=== PATIENT | male | born 1955 | race Caucasian/White ===

== ENCOUNTER 2022-04-22 01:31 | Inpatient (IN) | payer MEDICARE, MEDICAID, SELFPAY ==
[2022-04-22] VITALS (31 sets, daily range): BP systolic 136–178; BP diastolic 79–97; PULSE 98–110; RESP 26–42; TEMP 35.8–36.9; O2SAT 97–100; BMI 18.5
--- NOTE | ~2022-04-22 | CT_ITS ---
EXAMINATION: CT brain wo con DATE: 04/22/2022 02:23 INDICATION: Transient alteration of awareness TECHNIQUE: Computed tomography (CT) of the head was performed without intravenous contrast. The dose- length product was 681.00 mGy-cm. Automated exposure control and iterative reconstruction technique w ere employed. COMPARISON: None FINDINGS: Mild generalized atrophy. There is a chronic right temporal lobe infarction with encephalom alacia. There are scattered mild periventricular and subcortical white matter changes, most likely re lated to small vessel ischemic disease (microangiopathy). No ventriculomegaly or midline shift. There is a chronic left temporal lobe infarction as well. There is intracranial atherosclerosis. Paranasal sinuses are pneumatized. Mastoids are pneumatized. There are surgical changes involving the left orb ital floor consistent with previous blowout fracture repair. IMPRESSION: 1. No acute intracranial abnormality. 2: Chronic bilateral temporal lobe infarctions. 3: Chronic age-related findings. Reviewed, dictated and finalized at location A.
--- NOTE | ~2022-04-22 | XR_ITS ---
EXAMINATION: XR abdomen NG/feed tube insert DATE: 04/23/2022 13:41 INDICATION: Nasogastric tube placement. TECHNIQUE: An upright view of the abdomen was obtained. COMPARISON: None. FINDINGS: The lower abdomen is excluded. The nasogastric tube tip is in the stomach. IMPRESSION: 1. Nasogastric tube tip in the stomach. Reviewed, dictated and finalized at location A.
--- NOTE | ~2022-04-22 | XR_ITS ---
XR abdomen NG/feed tube insert INDICATION: Evaluate NG tube position. TECHNIQUE: Limited KUB perform for evaluating NG tube . COMPARISON: 04/23/2022 FINDINGS: NG tube tip in the stomach. Visualized bowel gas pattern is unremarkable. IMPRESSION: 1: NG tube tip in the stomach. Reviewed, dictated and finalized at location A.
--- NOTE | ~2022-04-22 | XR_ITS ---
EXAMINATION: XR barium swallow modified DATE: 04/26/2022 14:14 INDICATION: Dysphagia TECHNIQUE: Modified barium esophagram was performed by myself to administered fluoroscopy, in conjun ction with speech pathologist who administered barium in varying consistencies as per speech patholog ist documentation. This was recorded on tape. A single fluoroscopic spot image was recorded. The DAP for this procedure was 1.35 Gycm2. Fluoroscopy exposure time was 2.0 minutes. FINDINGS: Oral stage: Increased tongue pumping and prolonged mastication. Pharyngeal phase: Reduced laryngeal elevation, reduced tongue base retraction, reduced laryngeal addu ction, vallecular and piriform sinus residue. Laryngeal penetration: Present. Aspiration: Present. Laryngeal sensitivity: Absent. IMPRESSION: Abnormal modified barium swallow. Please refer to speech pathologist findings and specifi c feeding recommendations. Reviewed, dictated and finalized at location A. IMPRESSION: Abnormal modified barium swallow. Please refer to speech pathologis t findings and specific feeding recommendations.
--- NOTE | ~2022-04-22 | XR_ITS ---
EXAM: XR abdomen/kub 1V DATE: 04/26/2022 12:56 HISTORY: abd pain . COMPARISON: 04/25/2022. FINDINGS: Clear lung bases. Paucity of small bowel gas. No large bowel dilation. No organomegaly. No abnormal abdominal calcification. Regional bones and soft tissues normal for age. IMPRESSION: Indeterminate small bowel gas pattern (may be fluid-filled). Reviewed, dictated and finalized at location K.
--- NOTE | ~2022-04-22 | XR_ITS ---
EXAMINATION: XR chest 2V DATE: 05/02/2022 09:30 INDICATION: Leukocytosis. TECHNIQUE: Frontal and lateral views of the chest were obtained. COMPARISON: Chest single view 04/22/2022 FINDINGS: The chest demonstrates clear lungs without pneumonia, pleural effusion, or pneumothorax. Th e heart size is normal. IMPRESSION: 1. No acute cardiopulmonary disease. Reviewed, dictated and finalized at location A.
--- NOTE | ~2022-04-22 | XR_ITS ---
EXAMINATION: XR chest 1V portable 04/22/2022 02:05 INDICATION: Transient alteration of awareness. Dyspnea. PROCEDURE: AP portable chest COMPARISON: No prior studies for comparison. FINDINGS: The lungs are clear. The cardiomediastinal silhouette is within normal limits. There are no pleural effusions. There is no pneumothorax suspected. There are degenerative changes of the grey ulders. IMPRESSION: 1: NO ACUTE CARDIOPULMONARY DISEASE. Reviewed, dictated and finalized at location A.
--- NOTE | ~2022-04-22 | XR_ITS ---
EXAMINATION: XR barium swallow modified DATE: 04/29/2022 15:12 INDICATION: Dysphagia. TECHNIQUE: The patient was given barium-containing material of multiple consistencies to swallow by t shea speech pathologist while I performed fluoroscopy. Dose-area product was 2.2 Gy-cm2. 7.8 minutes fluoroscopy time FINDINGS: Oral Stage: Reduced lingual movement. Pharyngeal Phase: Reduced laryngeal elevation and laryngeal abduction Reduced tongue base retraction and pharyngeal squeeze Vallecular residue, mild Mild pharyngeal wall residue Laryngeal penetration, occasional aspiration Cervical/Esophageal Stage: Within functional limits IMPRESSION: Modified esophagram findings as above. Please refer to the speech therapy report for [facility]. Reviewed, dictated and finalized at Location A. Reviewed, dictated and finalized at location A. IMPRESSION: Modified esophagram findings as above. Please refer to the speech t herapy report for specific recommendations.
--- NOTE | ~2022-04-22 | XR_ITS ---
EXAMINATION: XR abdomen NG/feed tube insert DATE: 04/23/2022 15:41 INDICATION: Nasogastric tube placement TECHNIQUE: A supine view of the abdomen and lower chest was obtained for evaluation of feeding tube placement. COMPARISON: 04/23/2022 at 1:39 PM FINDINGS: Nasogastric tube tip in proximal side port in the body of the stomach. No dilated loops of gas-filled bowel in the visualized abdomen. Lung bases are clear. Heart size is normal. IMPRESSION: 1. Nasogastric tube tip in the stomach. Reviewed, dictated and finalized at location B.
--- NOTE | ~2022-04-22 | XR_ITS ---
MODIFIED ESOPHAGRAM HISTORY: Altered mental status TECHNIQUE: Modified barium esophagram was performed by speech pathologist under radiologist fluorosco pic guidance. This was recorded on tape. The exam was reviewed on 04/25/2022 10:06 CDT. The DAP for this procedure was 1 Gycm2. Fluoroscopy time is 1.3 minutes. FINDINGS: Lateral projection of the cervical spine demonstrates normal alignment. There is reduced laryngeal elevation, reduced laryngeal adduction and reduced tongue base retraction. There is larynge al penetration with aspiration. No cough reflex.. IMPRESSION: 1: Laryngeal penetration with aspiration without cough reflex. 2: Please refer to speech pathologist report for additional detail. Reviewed, dictated and finalized at location A.
--- NOTE | 2022-04-22 01:32 | ECG_ITS ---
Measurements Intervals [place] Rate: 108 P: 66 NV: 134 QRS: -28 QRSD: 89 T: 33 QT: 335 QTc: 450 Interpretive Statements SINUS TACHYCARDIA POSSIBLE LEFT ATRIAL ENLARGEMENT DELAYED PRECORDIAL R/S TRANSITION BORDERLINE T WAVE ABNORMALITY- INFERIOR LEADS BASELINE ARTIFACT- I, II, III, AVR, AVL, AVF, V1-V2, V6 BORDERLINE ECG Electronically Signed On 04-22-2022 6:37:52 CDT by Nelson Blandon D.O.
[2022-04-22 01:51] LABS: Alveolar/Arterial O2 Gradient 29.4 mmHg; Base Excess ABG -15.1 mEq/l (+/-2.0); Fractional Inspired Oxygen 21 %; Oxygen Content ABG 19.8 %vol (16.0-22.0); Oxygen Saturation ABG 96.1 % (95.0-100.0); Oxyhemoglobin 94.1 % THb (90.0-100.0); PO2 ABG 92.4 mmHg (80.0-100.0); Total Hemoglobin 14.9 g/dL (12.0-18.0)
[2022-04-22] MEDS: SODIUM CHLORIDE 0.9% IV 2,000 ML 999 ML IV CONT (01:52)
[2022-04-22 01:53] LABS: Device ROOM AIR; Modified Allen's Test Pass; PCO2 ABG 23.3 mmHg (35.0-45.0); Site Drawn LEFT RADIAL; pH ABG 7.252 (7.350-7.450)
[2022-04-22 01:57] LABS: Basophils Absolute Auto 0.1 K/mm3 (0.0-0.1); Basophils Percent Auto 0.4 % (0.2-1.2); Hematocrit 53.5 % (42.0-52.0); Hemoglobin 15.4 g/dL (14.0-18.0); Immature Granulocyte Absolute 0.27 K/mm3 (0.00-0.031); Immature Granulocyte Percent A 1.3 % (0-0.5); Lymphocytes Absolute Auto 1.68 K/mm3 (0.9-3.2); Lymphocytes Percent Auto 8.1 % (18.3-44.2); Mean Corpuscular HGB Conc 28.8 g/dl (32-36); Mean Corpuscular Hemoglobin 25.5 pg (26-34); Mean Corpuscular Volume 88.7 fl (80-100); Mean Platelet Volume 10.7 fl (7.4-10.4); Monocytes Absolute Auto 2.5 K/mm3 (0.1-0.6); Monocytes Percent Auto 11.9 % (2.6-8.5); Neutrophils Absolute Auto 16.2 K/mm3 (1.3-6.7); Neutrophils Percent Auto 78.3 % (45.5-73.1); Nucleated Red Blood Cells Perc 0.1 % (0.0-0.2); Platelet Count Result 622 k/mm3 (150-375); Red Blood Count 6.03 M/mm3 (4.6-6.20); Red Cell Distribution Width 16.9 % (11.5-14.5); White Blood Count 20.7 K/mm3 (4.5-10.0)
[2022-04-22 02:02] LABS: Glucose Point of Care > 500 mg/dl (65-105)
[2022-04-22 02:05] LABS: Ammonia < 9 umol/L (9-30)
[2022-04-22 02:09] LABS: INR 1.3; Partial Thromboplastin Time 25.8 SECONDS (22.3-36.8); Prothrombin Time 16.1 Seconds (11.1-14.7)
[2022-04-22] MEDS: SODIUM BICARBONATE 8.4% 50 MEQ/50 ML SYRINGE IV PUSH (02:09)
[2022-04-22 02:11] LABS: Alanine Aminotransferase 54 U/L (6-50); Albumin Level 4.9 g/dL (3.5-5.1); Alkaline Phosphatase 132 U/L (38-126); Anion Gap 33 mmol/L (8-16); Aspartate Amino Transferase 32 U/L (17-59); Bilirubin,Total 0.6 mg/dL (0.2-1.3); Blood Urea Nitrogen > 120 mg/dL (9-20); Calcium 9.3 mg/dL (8.4-10.2); Carbon Dioxide 12 mmol/L (22-30); Chloride 106 mmol/L (98-107); Estimated CRCL calculation 12 ml/min; Estimated Glomerular Filt Rate 10; Potassium 3.4 mmol/L (3.4-5.0); Sodium 151 mmol/L (137-145)
[2022-04-22 02:16] LABS: Glucose 1249 mg/dL (65-110)
[2022-04-22] MEDS: SODIUM CHLORIDE 0.9% IV 1,000 ML 999 ML IV CONT ×2 (02:24→02:53)
--- NOTE | 2022-04-22 02:25 | PC.NURSE ---
this rn clarified with erp. Pt is to get a total of 4,000ml ( 1 liter via ems, and 3 liters in the ed).
[2022-04-22 02:34] LABS: Add Urine Microscopic? YES; Appearance Urine Clear (Clear); Bilirubin Urine 1+ (Negative); Blood Urine 2+ (Negative); Color Urine Yellow (Yellow); Glucose Urine UA 3+ mg/dL (Negative); Ketones Urine Trace mg/dL (Negative); Leukocyte Esterase Ur Negative LEU/UL (Negative); Nitrate Urine Negative (Negative); Protein Urine Trace mg/dL (Negative); Specific Grav Ur 1.015 (1.001-1.035); Urobilinogen Urine 0.2 mg/dL (<2.0)
[2022-04-22 02:36] LABS: Bacteria Urine Trace /hpf; Mucus Urine Rare /lpf; Squamous Epithelial Cell Urine Rare /hpf (Few)
[2022-04-22 02:48] LABS: Amphetamine Screen Urine Negative (Negative); Barbiturate Screen Urine Negative (Negative); Benzodiazepines Screen Urine Negative (Negative); Cannabinoid Screen Urine Positive (Negative); Cocaine Screen Urine Negative (Negative); Methadone Screen Urine Negative (Negative); Opiate Screen Urine Negative (Negative); Phencyclidine Screen Urine Negative (Negative)
[2022-04-22] MEDS: INSULIN HUMAN REGULAR (*BKC) 100 UNITS in SODIUM CHLORIDE 0.9% IV 99 ML 23.8 UNITS IV CONT ×2 (02:51→06:34)
[2022-04-22] MEDS: POTASSIUM CHLORIDE INJ 40 MEQ in SODIUM CHLORIDE 0.9% IV 500 ML 130 MEQ IVPB ×3 (02:59→14:54)
[2022-04-22 03:00] LABS: Beta-Hydroxybutyrate/Acetoacetate 6.29 mmol/L (0.02-0.27)
[2022-04-22] MEDS: INSULIN HUMAN REGULAR (*BKC) 100 UNITS/ML 7 UNITS IV PUSH (03:00)
[2022-04-22 03:03] LABS: Lactic Acid Reflex 3.9 mmol/L (0.7-2.0)
--- NOTE | 2022-04-22 03:05 | ED.AMS ---
HPI - Altered Mental Status General Chief Complaint: Altered Mental Status Stated Complaint: altered loc, bs HIGH, LKW [id number] Time Seen by Provider: 04/22/22 01:37 Source: family and EMS History of Present Illness HPI narrative: Patient brought in for altered mental status. Patient was found by his father this morning around 8 AM was minimally responsive at that time his mother went about his day he had not seen his son so he went back to check on him this evening and noted there is no change in his status so he called EMS and he was transported to the ER for further evaluation. EMS reported a history of diabetes her glucometer read high. Related Data Home Medications Medication Instructions Recorded Confirmed blood sugar diagnostic (OneTouch 10/29/21 10/29/21 Ultra Test) blood-glucose meter (OneTouch 10/29/21 10/29/21 Ultra2 Meter) lancets 30 gauge (OneTouch Delica 10/29/21 10/29/21 Lancets) Allergies Allergy/AdvReac Type Severity Reaction Status Date / Time No Known Allergies Allergy Unknown Verified 01/27/22 17:08 Review of Systems Review of Systems: ROS unobtainable: Yes unobtainable due to medical condition [facility] Past Medical History Medical History (Updated 04/22/22 @ 04:09 by Fina Hoffmann DO) Alcoholic pancreatitis 3 episodes between 2002 in 2003. Arthritis BPH without urinary obstruction Chronic headaches COPD (chronic obstructive pulmonary disease) Diabetes mellitus Gastric ulcer High cholesterol HTN (hypertension) Surgical History Surgical History (Updated 04/22/22 @ 04:09 by Fina Hoffmann DO) History of colonoscopy with polypectomy (06/2009) History of esophagogastroduodenoscopy (EGD) (06/2009) Family History Family History Mother Patient's mother is in good health Father Patient's father is in good health Social History Social History (Updated 04/22/22 @ 04:12 by Fina Hoffmann DO) Social History: The patient lives in his father's basement. Smoking status: Former smoker Smoking end date: 11/23/13 Alcohol intake: former Alcohol use details: Patient has a history of alcohol abuse and prior alcoholic pancreatitis. Substance use: current Substance use type: marijuana Gender identity (if verbalized by the patient): Male Exam Narrative: GENERAL: Ill-appearing HEAD: Normocephalic, atraumatic. EYES: PERRLA and EOMI. ENT: Nares clear, no rhinorrhea or epistaxis. Mucous membranes dry NECK: Supple. No masses. No JVD CHEST: Clear to auscultation. Tachypnea HEART: Regular tachycardia. No murmur heard. Normal peripheral pulses. ABDOMEN: Soft, nontender, nondistended, normal active bowel sounds. EXTREMITIES: Normal range of motion. No edema. SKIN: Warm, dry, no rash. NEURO: Moves all extremities no facial asymmetry somnolent Course Reevaluation(s) Reevaluation #1: Imaging returned and were without acute process labs returned concerning for DKA given patient's elevated white count will empirically cover with antibiotics. Due to severe electrolyte abnormalities he will be admitted to the ICU. Case cussed with ICU on-call as well as the hospitalist team. Date: 04/22/22 Time: 03:46 Vital Signs Vital signs: Vital Signs Temperature 36.6 C 04/22/22 01:33 Pulse Rate 110 H 04/22/22 01:33 Respiratory Rate 38 H 04/22/22 01:33 Blood Pressure 139/96 H 04/22/22 01:33 Pulse Oximetry 99 04/22/22 01:33 Oxygen Delivery Room Air 04/22/22 01:33 Temperature 36.6 C 04/22/22 01:33 Pulse Rate 102 H 04/22/22 04:15 Respiratory Rate 42 H 04/22/22 04:15 Blood Pressure 154/89 H 04/22/22 04:15 Pulse Oximetry 100 04/22/22 03:45 Oxygen Delivery Room Air 04/22/22 01:33 MDM - Altered Mental Status MDM Narrative Medical decision making narrative: Patient brought in for altered mental status labs and imaging obtained. Labs notable for acute renal failure with elevated
--- NOTE | 2022-04-22 03:12 | PC.NURSE ---
Liters 3 and 4 hanging wide at present. Lab at bedside collected additional labs as needed.
[2022-04-22 03:15] LABS: Magnesium 3.6 mg/dL (1.6-2.3); Phosphorus 10.9 mg/dL (2.5-4.5)
--- NOTE | 2022-04-22 03:42 | PC.NURSE ---
All 4 liters ordered infused. Insulin gtt and potassium gtt continue to infuse. Pt has spontaneous movements of extremities, does not appear purposeful. Opens eyes once to name, when this RN says hi he responded back the same but then becomes difficult to arouse again.
--- NOTE | 2022-04-22 03:59 | PM.IMHP ---
H&P: HPI History of Present Illness Date/Time: 04/22/22 03:59 Chief Complaint: Altered mental status Narrative: 66-year-old male with past medical history of alcoholic pancreatitis, type 2 diabetes mellitus, diabetic peripheral neuropathy, BPH and GERD who presented to the ER with altered mental status. The patient's father found the patient minimally responsive 8:00 a.m.. His father went about his daily business and when he had not heard from his son this evening he went to check on his son. When his son was still unresponsive he called EMS. In the field, glucometer reading was high. The patient received 1 L of IV fluids in route to the ER. Entirety of HPI was obtained from EMS report, ER report and outpatient records. On review of outpatient records the patient has had 820 kg weight loss since October. The patient's last ER visit for alcohol intoxication in her old computer system is 2012. Review of Systems Review of Systems: ROS unobtainable: Yes unobtainable due to medical condition (Encephalopathy) [facility] Past Medical History Medical History (Updated 04/22/22 @ 04:09 by Fina Hoffmann DO) Alcoholic pancreatitis 3 episodes between 2002 in 2003. Arthritis BPH without urinary obstruction Chronic headaches COPD (chronic obstructive pulmonary disease) Diabetes mellitus Gastric ulcer High cholesterol HTN (hypertension) Surgical History Surgical History (Updated 04/22/22 @ 04:09 by Fina Hoffmann DO) History of colonoscopy with polypectomy (06/2009) History of esophagogastroduodenoscopy (EGD) (06/2009) Family History Family History Mother Patient's mother is in good health Father Patient's father is in good health Social History Social History (Updated 04/22/22 @ 04:12 by Fina Hoffmann DO) Social History: The patient lives in his father's basement. Smoking status: Former smoker Smoking end date: 11/23/13 Alcohol intake: former Alcohol use details: Patient has a history of alcohol abuse and prior alcoholic pancreatitis. Substance use: current Substance use type: marijuana Gender identity (if verbalized by the patient): Male Meds Home Medications and Allergies Home Medications Medication Instructions Recorded Confirmed Type albuterol sulfate 90 mcg/actuation 2 puff inhalation Q4-6H #8.5 grams 10/29/21 10/29/21 Rx aerosol inhaler (ProAir HFA) blood sugar diagnostic ([facility] 10/29/21 10/29/21 History Ultra Test) blood-glucose meter ([facility] 10/29/21 10/29/21 History Ultra2 Meter) finasteride 5 mg tablet 5 mg PO DAILY #90 tabs 10/29/21 10/29/21 Rx gabapentin 300 mg capsule See Rx Instructions .Route 10/29/21 Rx .COMPLEX #810 caps glipizide 10 mg tablet See Rx Instructions .Route 10/29/21 10/29/21 Rx .COMPLEX #180 tabs lancets 30 gauge ([facility] 10/29/21 10/29/21 History Lancets) linagliptin 5 mg tablet (Tradjenta) See Rx Instructions .Route 10/29/21 10/29/21 Rx .COMPLEX #90 tabs metformin 1,000 mg tablet 1,000 mg PO BID #180 tabs 10/29/21 10/29/21 Rx metoprolol succinate 25 mg See Rx Instructions .Route 10/29/21 10/29/21 Rx tablet,extended release 24 hr .COMPLEX #90 tabs omeprazole 20 mg capsule,delayed See Rx Instructions .Route 10/29/21 10/29/21 Rx release .COMPLEX #90 caps simvastatin 20 mg tablet See Rx Instructions .Route 10/29/21 10/29/21 Rx .COMPLEX #90 tabs tamsulosin 0.4 mg capsule 0.4 mg PO DAILY #90 caps 10/29/21 10/29/21 Rx umeclidinium 62.5 mcg/actuation 1 inh inhalation DAILY #90 ea 10/29/21 10/29/21 Rx blister powder for inhalation (Incruse Ellipta) alprazolam 0.5 mg tablet 0.5 mg PO BID PRN anxiety #60 tabs 03/20/22 Rx ondansetron 4 mg disintegrating 4 mg PO Q8H PRN nausea and 04/01/22 Rx tablet vomiting #30 tabs Allergies Allergy/AdvReac Type Severity Reaction Status Date / Time No Known Allergies Allergy Unknown Verified 01/27/22 17:08
[2022-04-22 04:09] LABS: Glucose Point of Care > 500 mg/dl (65-105)
[2022-04-22] MEDS: CEFEPIME 2 GM in DEXTROSE 5% IN WATER 50 ML IVPB (04:19)
[2022-04-22 04:20] LABS: Ethanol < 10 mg/dL (<10)
--- NOTE | 2022-04-22 04:24 | PC.NURSE ---
Report to floor, instructed to hold the pt here because Dr. Hoffmann is enroute to see the patient.
--- NOTE | 2022-04-22 05:20 | PC.NURSE ---
Returned to room to find the patient had undressed himself, pulled his right hand (potassium) IV out, and removed all monitoring equipment.
[2022-04-22 05:50] LABS: Reflex Lactic Acid Yes or No Add Lactic
[2022-04-22] MEDS: SODIUM CHLORIDE 0.9% IV 1,000 ML 500 ML IV CONT (05:51)
[2022-04-22 05:56] LABS: Glucose Point of Care > 500 mg/dl (65-105)
--- NOTE | 2022-04-22 05:58 | ADMGEN ---
This patient, [place], was admitted to Intensive Care Unit-3. Patient/family oriented to hospital policies and general routines including ID bracelet, bed and alarms, visiting hours, pain management, procedures, bathroom and other care routines, personal items, smoking policy, room service/diet, and visiting hours. Information on how to activate the Rapid Response Team has been discussed. Patient/Family are encouraged to report perceived risks to care and to ask questions if they do not understand what they are told or what they should do.
[2022-04-22 06:05] LABS: Hematocrit 49.3 % (42.0-52.0); Hemoglobin 15.4 g/dL (14.0-18.0); Mean Corpuscular HGB Conc 31.2 g/dl (32-36); Mean Corpuscular Volume 83.1 fl (80-100); Mean Platelet Volume 10.2 fl (7.4-10.4); Platelet Count Result 520 k/mm3 (150-375); Red Blood Count 5.93 M/mm3 (4.6-6.20); White Blood Count 18.2 K/mm3 (4.5-10.0)
[2022-04-22 06:33] LABS: Hemoglobin A1C 9.3 % (<5.7)
[2022-04-22 06:57] LABS: Glucose Point of Care 458 mg/dl (65-105)
[2022-04-22 06:57] LABS: Procalcitonin 0.5 ng/mL
[2022-04-22 07:05] LABS: Anion Gap 22 mmol/L (8-16); Calcium 8.7 mg/dL (8.4-10.2); Carbon Dioxide 12 mmol/L (22-30); Chloride 127 mmol/L (98-107); Estimated CRCL calculation 15 ml/min; Estimated Glomerular Filt Rate 15; Glucose 659 mg/dL (65-110); Potassium 2.3 mmol/L (3.4-5.0); Sodium 161 mmol/L (137-145)
[2022-04-22 07:06] LABS: Blood Urea Nitrogen 135 mg/dL (9-20)
[2022-04-22 07:24] LABS: Lactic Acid 4.7 mmol/L (0.7-2.0)
[2022-04-22 07:51] LABS: Glucose Point of Care 384 mg/dl (65-105)
[2022-04-22] MEDS: POTASSIUM CHLORIDE INJ 40 MEQ in SODIUM CHLORIDE 0.45% 1,000 ML 150 ML IV CONT (08:03)
--- NOTE | 2022-04-22 08:42 | WPDCNINT ---
Assessment and Plan Assessment and plan (1) DKA (diabetic ketoacidosis): Qualifiers: Diabetes mellitus complication detail: with coma Diabetes mellitus type: other specified (including RAFY) Qualified Code(s): E13.11 - Other specified diabetes mellitus with ketoacidosis with coma Code(s): E11.10 - Type 2 diabetes mellitus with ketoacidosis without coma Status: Acute Assessment and Plan: Patient presented with the unresponsiveness from home, was found to be in DKA with elevated blood sugars, positive beta hydroxybutyrate, anion gap of 33 -CT scan of the brain with no intracranial abnormalities, chronic bilateral temporal lobe infarctions, chronic age-related findings. Chest x-ray with no acute cardiopulmonary disease. -urine was not reflective of a UTI but was positive for glucose with trace ketones -patient was given a total of 5 L of IV fluids, started on insulin infusion and transferred to the ICU for further management -continue insulin infusion -serial BMPs -will switch IV fluids to half normal saline with potassium since patient is hypernatremic (2) Acute renal failure: Qualifiers: Acute renal failure type: unspecified Qualified Code(s): N17.9 - Acute kidney failure, unspecified Code(s): N17.9 - Acute kidney failure, unspecified Status: Acute Assessment and Plan: Patient with acute renal failure, could be related to dehydration, hypovolemia secondary to diabetes ketoacidosis, patient was minimally responsive prolonged amount of time in his house -will obtain CK level -patient has received adequate amount of IV fluid -continue maintenance IV fluids -creatinine trending down, urine output is adequate -continue to monitor renal function, electrolytes and urine output -will replace potassium aggressively (3) HTN (hypertension): Qualifiers: Hypertension type: essential hypertension Qualified Code(s): I10 - Essential (primary) hypertension Code(s): I10 - Essential (primary) hypertension Status: Acute Assessment and Plan: Essential hypertension, will hold p.o. home antihypertensives as patient is less responsive -will add p.r.n. 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 Diabetes mellitus complication status: without complication Qualified Code(s): E11.9 - Type 2 diabetes mellitus without complications Code(s): E11.9 - Type 2 diabetes mellitus without complications Status: Acute Assessment and Plan: Patient on oral hypoglycemics at home, currently will hold as patient is on insulin infusion -hemoglobin A1c was 9.3 (5) Leukocytosis (leucocytosis): Qualifiers: Leukocytosis type: unspecified Qualified Code(s): D72.829 - Elevated white blood cell count, unspecified Code(s): D72.829 - Elevated white blood cell count, unspecified Status: Acute Assessment and Plan: Chest x-ray and UA were negative for any infectious etiology -likely stress response -will continue to monitor -patient was started on cefepime and vancomycin in the ER, blood and cultures have been obtained, will deescalate antibiotics if cultures are negative -procalcitonin was 0.5 (6) Hypernatremia: Code(s): E87.0 - Hyperosmolality and hypernatremia Status: Acute Assessment and Plan: Hypernatremia likely related to dehydration, normal saline -patient has been adequately fluid resuscitated with 5 L IV fluid bolus -continue maintenance IV fluids with 0.45% saline with potassium -continue serial BMPs (7) Encephalopathy: Code(s): G93.40 - Encephalopathy, unspecified Status: Acute Assessment and Plan: Multifactorial, related to diabetic ketoacidosis, hyperglycemic state, hypernatremia, uremia, metabolic acidosis -ammonia was <9.0 -CT scan of the brain with no intracranial abnormalities,
[2022-04-22 09:07] LABS: Glucose Point of Care 319 mg/dl (65-105)
[2022-04-22] MEDS: HEPARIN SODIUM 5,000 UNITS/ML VIAL 5000 UNITS SUB-Q ×2 (09:13→20:16)
[2022-04-22 10:02] LABS: Glucose Point of Care 279 mg/dl (65-105)
[2022-04-22 10:12] LABS: Creatine Kinase 1023 U/L (55-170)
[2022-04-22 10:17] LABS: Anion Gap 13 mmol/L (8-16); Blood Urea Nitrogen 113 mg/dL (9-20); Calcium 8.1 mg/dL (8.4-10.2); Carbon Dioxide 14 mmol/L (22-30); Chloride 137 mmol/L (98-107); Estimated CRCL calculation 19 ml/min; Estimated Glomerular Filt Rate 19; Glucose 331 mg/dL (65-110); Potassium 2.4 mmol/L (3.4-5.0); Sodium 164 mmol/L (137-145)
[2022-04-22 11:06] LABS: Glucose Point of Care 231 mg/dl (65-105)
[2022-04-22 12:02] LABS: Glucose Point of Care 171 mg/dl (65-105)
[2022-04-22 13:01] LABS: Glucose Point of Care 124 mg/dl (65-105)
[2022-04-22 14:04] LABS: Glucose Point of Care 82 mg/dl (65-105)
[2022-04-22 14:26] LABS: Anion Gap 11 mmol/L (8-16); Blood Urea Nitrogen 110 mg/dL (9-20); Calcium 8.1 mg/dL (8.4-10.2); Carbon Dioxide 15 mmol/L (22-30); Chloride 139 mmol/L (98-107); Estimated CRCL calculation 22 ml/min; Estimated Glomerular Filt Rate 23; Glucose 87 mg/dL (65-110); Potassium 3.2 mmol/L (3.4-5.0); Sodium 165 mmol/L (137-145)
[2022-04-22] MEDS: KCL 20 MEQ/D5W 1,000 ML 1,000 ML 75 ML IV CONT (14:55)
[2022-04-22 15:02] LABS: Glucose Point of Care 108 mg/dl (65-105)
[2022-04-22] MEDS: INSULIN GLARGINE (*BKC) 100 UNITS/ML 20 UNITS SUB-Q (15:02)
[2022-04-22 17:10] LABS: Glucose Point of Care 219 mg/dl (65-105)
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
[2022-04-22] MEDS: INSULIN ASPART (*BKC) 100 UNITS/ML SUB-Q ×2 (17:18→20:38)
--- NOTE | 2022-04-22 17:22 | PM.IMPN ---
Progress Note: A&P Assessment and Plan (1) DKA (diabetic ketoacidosis): Qualifiers: Diabetes mellitus complication detail: with coma Diabetes mellitus type: other specified (including RAFY) Qualified Code(s): E13.11 - Other specified diabetes mellitus with ketoacidosis with coma Code(s): E11.10 - Type 2 diabetes mellitus with ketoacidosis without coma Status: Acute Assessment and Plan: Patient presented with the unresponsiveness from home, was found to be in DKA with elevated blood sugars, positive beta hydroxybutyrate, anion gap of 33 -CT scan of the brain with no intracranial abnormalities, chronic bilateral temporal lobe infarctions, chronic age-related findings. Chest x-ray with no acute cardiopulmonary disease. -urine was not reflective of a UTI but was positive for glucose with trace ketones -patient was given a total of 5 L of IV fluids, started on insulin infusion and transferred to the ICU for further management -continue insulin infusion -serial BMPs -will switch IV fluids to half normal saline with potassium since patient is hypernatremic (2) Acute renal failure: Qualifiers: Acute renal failure type: unspecified Qualified Code(s): N17.9 - Acute kidney failure, unspecified Code(s): N17.9 - Acute kidney failure, unspecified Status: Acute Assessment and Plan: Patient with acute renal failure, could be related to dehydration, hypovolemia secondary to diabetes ketoacidosis, patient was minimally responsive prolonged amount of time in his house -will obtain CK level -patient has received adequate amount of IV fluid -continue maintenance IV fluids -creatinine trending down, urine output is adequate -continue to monitor renal function, electrolytes and urine output -will replace potassium aggressively (3) HTN (hypertension): Qualifiers: Hypertension type: essential hypertension Qualified Code(s): I10 - Essential (primary) hypertension Code(s): I10 - Essential (primary) hypertension Status: Acute Assessment and Plan: Essential hypertension, will hold p.o. home antihypertensives as patient is less responsive -will add p.r.n. hydralazine - (4) Diabetes mellitus: Qualifiers: Diabetes mellitus type: type 2 Diabetes mellitus intermediate insulin use: without intermediate use Diabetes mellitus complication status: without complication Qualified Code(s): E11.9 - Type 2 diabetes mellitus without complications Code(s): E11.9 - Type 2 diabetes mellitus without complications Status: Acute Assessment and Plan: Patient on oral hypoglycemics at home, currently will hold as patient is on insulin infusion -hemoglobin A1c was 9.3 (5) Leukocytosis (leucocytosis): Qualifiers: Leukocytosis type: unspecified Qualified Code(s): D72.829 - Elevated white blood cell count, unspecified Code(s): D72.829 - Elevated white blood cell count, unspecified Status: Acute Assessment and Plan: Chest x-ray and UA were negative for any infectious etiology -likely stress response -will continue to monitor -patient was started on cefepime and vancomycin in the ER, blood and cultures have been obtained, will deescalate antibiotics if cultures are negative -procalcitonin was 0.5 (6) Hypernatremia: Code(s): E87.0 - Hyperosmolality and hypernatremia Status: Acute Assessment and Plan: Hypernatremia likely related to dehydration, normal saline -patient has been adequately fluid resuscitated with 5 L IV fluid bolus -continue maintenance IV fluids with 0.45% saline with potassium -continue serial BMPs (7) Encephalopathy: Code(s): G93.40 - Encephalopathy, unspecified Status: Acute Assessment and Plan: Multifactorial, related to diabetic ketoacidosis, hyperglycemic state, hypernatremia, uremia, metabolic acidosis -ammonia was <9.0 -CT scan of the brain with no intracranial abnormalities, c
[2022-04-22 18:25] LABS: Anion Gap 7 mmol/L (8-16); Blood Urea Nitrogen 99 mg/dL (9-20); Carbon Dioxide 18 mmol/L (22-30); Chloride 140 mmol/L (98-107); Estimated CRCL calculation 23 ml/min; Estimated Glomerular Filt Rate 24; Glucose 259 mg/dL (65-110); Potassium 3.7 mmol/L (3.4-5.0); Sodium 165 mmol/L (137-145)
[2022-04-22] MEDS: hydrALAZINE HCL 20 MG/ML VIAL 10 MG IV PUSH (20:13)
[2022-04-22 20:37] LABS: Glucose Point of Care 325 mg/dl (65-105)
[2022-04-22 22:17] LABS: Anion Gap 11 mmol/L (8-16); Blood Urea Nitrogen 88 mg/dL (9-20); Calcium 8.1 mg/dL (8.4-10.2); Carbon Dioxide 14 mmol/L (22-30); Chloride 140 mmol/L (98-107); Estimated CRCL calculation 27 ml/min; Estimated Glomerular Filt Rate 29; Glucose 338 mg/dL (65-110); Potassium 3.6 mmol/L (3.4-5.0); Sodium 165 mmol/L (137-145)
[2022-04-23] VITALS (17 sets, daily range): BP systolic 131–164; BP diastolic 65–91; PULSE 90–104; RESP 23–34; TEMP 36.2–36.9; O2SAT 95–100; BMI 17.9
[2022-04-23 00:21] LABS: Glucose Point of Care > 500 mg/dl (65-105)
[2022-04-23] MEDS: hydrALAZINE HCL 20 MG/ML VIAL 10 MG IV PUSH ×3 (00:34→18:16)
[2022-04-23 01:11] LABS: Anion Gap 13 mmol/L (8-16); Blood Urea Nitrogen 88 mg/dL (9-20); Calcium 7.9 mg/dL (8.4-10.2); Carbon Dioxide 14 mmol/L (22-30); Chloride 138 mmol/L (98-107); Estimated CRCL calculation 31 ml/min; Estimated Glomerular Filt Rate 34; Glucose 348 mg/dL (65-110); Potassium 4.6 mmol/L (3.4-5.0); Sodium 165 mmol/L (137-145)
[2022-04-23] MEDS: INSULIN ASPART (*BKC) 100 UNITS/ML SUB-Q ×6 (01:18→20:34)
[2022-04-23] MEDS: KCL 20 MEQ/D5W 1,000 ML 1,000 ML 125 ML IV CONT ×2 (02:31→10:31)
[2022-04-23] MEDS: CEFEPIME 2 GM in DEXTROSE 5% IN WATER 50 ML IVPB (03:47)
[2022-04-23 04:47] LABS: Basophils Absolute Auto 0.1 K/mm3 (0.0-0.1); Basophils Percent Auto 0.4 % (0.2-1.2); Eosinophils Absolute Auto 0.1 K/mm3 (0-0.3); Eosinophils Percent Auto 0.5 % (0-4.4); Hematocrit 42.3 % (42.0-52.0); Hemoglobin 13.2 g/dL (14.0-18.0); Immature Granulocyte Absolute 0.09 K/mm3 (0.00-0.031); Immature Granulocyte Percent A 0.6 % (0-0.5); Lymphocytes Absolute Auto 2.19 K/mm3 (0.9-3.2); Lymphocytes Percent Auto 14.8 % (18.3-44.2); Mean Corpuscular HGB Conc 31.2 g/dl (32-36); Mean Corpuscular Hemoglobin 26.3 pg (26-34); Mean Corpuscular Volume 84.3 fl (80-100); Mean Platelet Volume 10.4 fl (7.4-10.4); Monocytes Absolute Auto 1.3 K/mm3 (0.1-0.6); Monocytes Percent Auto 8.9 % (2.6-8.5); Neutrophils Percent Auto 74.8 % (45.5-73.1); Platelet Count Result 342 k/mm3 (150-375); Red Blood Count 5.02 M/mm3 (4.6-6.20); Red Cell Distribution Width 15.7 % (11.5-14.5); White Blood Count 14.8 K/mm3 (4.5-10.0)
[2022-04-23 04:59] LABS: Lactic Acid Reflex 2.7 mmol/L (0.7-2.0)
[2022-04-23 05:16] LABS: Alanine Aminotransferase 33 U/L (6-50); Albumin Level 3.5 g/dL (3.5-5.1); Alkaline Phosphatase 84 U/L (38-126); Ammonia < 9 umol/L (9-30); Anion Gap 8 mmol/L (8-16); Aspartate Amino Transferase 45 U/L (17-59); Bilirubin,Total 0.3 mg/dL (0.2-1.3); Blood Urea Nitrogen 78 mg/dL (9-20); Calcium 8.4 mg/dL (8.4-10.2); Carbon Dioxide 18 mmol/L (22-30); Chloride 139 mmol/L (98-107); Creatine Kinase 1975 U/L (55-170); Estimated CRCL calculation 31 ml/min; Estimated Glomerular Filt Rate 36; Glucose 321 mg/dL (65-110); Lipase 1292 U/L (23-300); Magnesium 2.9 mg/dL (1.6-2.3); Phosphorus 1.4 mg/dL (2.5-4.5); Potassium 3.2 mmol/L (3.4-5.0); Sodium 165 mmol/L (137-145)
[2022-04-23] MEDS: KCL 20 MEQ/SW 100 ML 100 ML 50 MEQ IVPB (06:54)
[2022-04-23 07:17] LABS: Glucose Point of Care 329 mg/dl (65-105)
[2022-04-23 07:45] LABS: Reflex Lactic Acid Yes or No Add Lactic
[2022-04-23 08:16] LABS: Anion Gap 9 mmol/L (8-16); Blood Urea Nitrogen 76 mg/dL (9-20); Calcium 8.3 mg/dL (8.4-10.2); Carbon Dioxide 13 mmol/L (22-30); Chloride 141 mmol/L (98-107); Estimated CRCL calculation 33 ml/min; Estimated Glomerular Filt Rate 38; Glucose 325 mg/dL (65-110); Potassium 3.4 mmol/L (3.4-5.0); Sodium 163 mmol/L (137-145)
[2022-04-23] MEDS: POTASSIUM PHOS,M-BASIC-D-BASIC 40 MMOL in SODIUM CHLORIDE 0.9% IV 250 ML 43.89 MMOL IVPB (08:17)
[2022-04-23] MEDS: INSULIN GLARGINE (*BKC) 100 UNITS/ML 32 UNITS SUB-Q (08:21)
[2022-04-23] MEDS: HEPARIN SODIUM 5,000 UNITS/ML VIAL 5000 UNITS SUB-Q ×2 (08:27→20:32)
[2022-04-23 08:44] LABS: Lactic Acid 2.1 mmol/L (0.7-2.0)
--- NOTE | 2022-04-23 09:04 | WPDINTPN ---
Progress Note: A&P Assessment and Plan (1) DKA (diabetic ketoacidosis): Qualifiers: Diabetes mellitus complication detail: with coma Diabetes mellitus type: other specified (including RAFY) Qualified Code(s): E13.11 - Other specified diabetes mellitus with ketoacidosis with coma Code(s): E11.10 - Type 2 diabetes mellitus with ketoacidosis without coma Status: Acute Assessment and Plan: Patient presented with the unresponsiveness from home, was found to be in DKA with elevated blood sugars, positive beta hydroxybutyrate, anion gap of 33 -CT scan of the brain with no intracranial abnormalities, chronic bilateral temporal lobe infarctions, chronic age-related findings. Chest x-ray with no acute cardiopulmonary disease. -urine was not reflective of a UTI but was positive for glucose with trace ketones -patient received adequate amount of IV fluids, -anion gap had closed, patient transition to long-acting insulin and sliding scale insulin. -will increase Lantus as patient is on D5W for his hypernatremia -continue to monitor serial BMPs (2) Acute renal failure: Qualifiers: Acute renal failure type: unspecified Qualified Code(s): N17.9 - Acute kidney failure, unspecified Code(s): N17.9 - Acute kidney failure, unspecified Status: Acute Assessment and Plan: Patient with acute renal failure, could be related to dehydration, hypovolemia secondary to diabetes ketoacidosis, patient was minimally responsive prolonged amount of time in his house -CK levels a elevated, -patient has received adequate amount of IV fluid -continue maintenance IV fluids -creatinine trending down, -patient has had good urine output -continue to monitor renal function, electrolytes and urine output (3) HTN (hypertension): Qualifiers: Hypertension type: essential hypertension Qualified Code(s): I10 - Essential (primary) hypertension Code(s): I10 - Essential (primary) hypertension Status: Acute Assessment and Plan: Essential hypertension, will hold p.o. home antihypertensives as patient is less responsive -will add p.r.n. hydralazine - (4) Diabetes mellitus: Qualifiers: Diabetes mellitus type: type 2 Diabetes mellitus alf insulin use: without roasterman use Diabetes mellitus complication status: without complication Qualified Code(s): E11.9 - Type 2 diabetes mellitus without complications Code(s): E11.9 - Type 2 diabetes mellitus without complications Status: Acute Assessment and Plan: Patient on oral hypoglycemics at home, currently will hold as patient is on insulin infusion -hemoglobin A1c was 9.3 -continue sliding scale insulin and Lantus as above (5) Leukocytosis (leucocytosis): Qualifiers: Leukocytosis type: unspecified Qualified Code(s): D72.829 - Elevated white blood cell count, unspecified Code(s): D72.829 - Elevated white blood cell count, unspecified Status: Acute Assessment and Plan: Chest x-ray and UA were negative for any infectious etiology -likely stress response, WBC count improving -will continue to monitor -currently on cefepime and vancomycin which was started on 04/22/2022 in the ER. -04/22/2021: Blood cultures growing Gram-positive cocci 1/2 bottles -04/22/2021: Urine cultures negative -procalcitonin was 0.5 (6) Hypernatremia: Code(s): E87.0 - Hyperosmolality and hypernatremia Status: Acute Assessment and Plan: Hypernatremia likely related to dehydration, normal saline -patient has been adequately fluid resuscitated with 5 L IV fluid bolus -patient currently on D5W with 20 mEq of KCl IV fluids for hyperglycemia -continue serial BMPs -appreciate Nephrology evaluation and recommendations (7) Encephalopathy: Code(s): G93.40 - Encephalopathy, unspecified Status: Acute Assessment and Plan: Multifactorial, related to diabetic ketoacidosis, hypergl
[2022-04-23 11:40] LABS: Glucose Point of Care 336 mg/dl (65-105)
[2022-04-23 12:24] LABS: Anion Gap 10 mmol/L (8-16); Blood Urea Nitrogen 66 mg/dL (9-20); Calcium 8.2 mg/dL (8.4-10.2); Carbon Dioxide 16 mmol/L (22-30); Chloride 138 mmol/L (98-107); Estimated CRCL calculation 37 ml/min; Estimated Glomerular Filt Rate 43; Glucose 334 mg/dL (65-110); Potassium 4.1 mmol/L (3.4-5.0); Sodium 164 mmol/L (137-145)
--- NOTE | 2022-04-23 12:50 | PM.CNNEP ---
Assessment and Plan Assessment and plan (1) Acute renal failure: Qualifiers: Acute renal failure type: unspecified Qualified Code(s): N17.9 - Acute kidney failure, unspecified Code(s): N17.9 - Acute kidney failure, unspecified Status: Acute Assessment and Plan: suspect related to volume depletion/prerenal factors s/p aggressive IVF resuscitation renal function improving making reasonable urine output CPK elevated - not sure how much it contributed to ANA MARIA - on IVFs follow repeat labs and UOP (2) Hypernatremia: Code(s): E87.0 - Hyperosmolality and hypernatremia Status: Acute Assessment and Plan: suspect related to dehydration and aggressive IVF resuscitation with normal saline initially switched to half normal saline given persistence of hypernatremia, now of D5W IVFs I doubt DI, but will follow for another [address] of head noted consider MRI of brain if mentation does not improve follow repeat sodium levels (3) DKA (diabetic ketoacidosis): Qualifiers: Diabetes mellitus complication detail: with coma Diabetes mellitus type: other specified (including RAFY) Qualified Code(s): E13.11 - Other specified diabetes mellitus with ketoacidosis with coma Code(s): E11.10 - Type 2 diabetes mellitus with ketoacidosis without coma Status: Acute Assessment and Plan: as noted by admission testing (hyperglycemia, positive beta hydroxybutyrate, + gap...etc) s/p aggressive IVF resuscitation DKA protocol follow accuchecks/sugars (4) HTN (hypertension): Qualifiers: Hypertension type: essential hypertension Qualified Code(s): I10 - Essential (primary) hypertension Code(s): I10 - Essential (primary) hypertension Status: Acute Assessment and Plan: reasonable control follow trend of hemodynamics (5) Encephalopathy: Code(s): G93.40 - Encephalopathy, unspecified Status: Acute Assessment and Plan: due to multiple issues - DKA, hyperglycemia, hypernatremia, uremia CT of brain noted consider further imaging if other underlying cause are being treatted Will continue to follow. History of Present Illness Reason for Consult Consult date: 04/23/22 Reason for consult: acute renal failure and hypernatremia Chief Complaint Chief complaint: dka History of Present Illness Narrative: Most of the information I have obtained is from review of the electronic medical record as the patient is unable to provide any meaningful history due to his current mental status. The patient is a 66-year-old male an extensive past medical history as outlined below who presented to [facility] Emergency room with altered mental status. Apparently, he was found minimally responsive and EMS was called for further evaluation. His blood sugars reportedly extremely elevated in the field prior to his transport to the emergency room. Further evaluation emergency room demonstrated labs consistent with diabetic ketoacidosis with a blood sugar of 1249, high anion gap, and a bicarb of 12. beta hydroxybutyrate and ketones were positive respectively. He also had an elevated white blood cell count elevated H&H, elevated platelet count, and significant hyponatremia with a sodium 151 as well as acute kidney injury/acute renal failure with a BUN greater than 120 and a creatinine of 5.5. Urine drug screen was positive for cannabinoids. CT scan the brain did not show any acute intracranial process. Chest x-ray was negative as well. Given these laboratory findings and constellation of symptoms that led to his presentation to the hospital, he was aggressively fluid resuscitated with IV fluids (approximately 5 L in total) and he was started on insulin infusion and subsequent transfer to the ICU for further management of his DKA and laboratory abnormalities. Renal consultation was requested due to his h
--- NOTE | 2022-04-23 13:23 | PM.IMPN ---
Progress Note: A&P Assessment and Plan (1) DKA (diabetic ketoacidosis): Qualifiers: Diabetes mellitus complication detail: with coma Diabetes mellitus type: other specified (including RAFY) Qualified Code(s): E13.11 - Other specified diabetes mellitus with ketoacidosis with coma Code(s): E11.10 - Type 2 diabetes mellitus with ketoacidosis without coma Status: Acute Assessment and Plan: Patient presented with the unresponsiveness from home, was found to be in DKA with elevated blood sugars, positive beta hydroxybutyrate, anion gap of 33 -CT scan of the brain with no intracranial abnormalities, chronic bilateral temporal lobe infarctions, chronic age-related findings. Chest x-ray with no acute cardiopulmonary disease. -urine was not reflective of a UTI but was positive for glucose with trace ketones -patient received adequate amount of IV fluids, -anion gap had closed, patient transition to long-acting insulin and sliding scale insulin. -will increase Lantus as patient is on D5W for his hypernatremia -continue to monitor serial BMPs (2) Acute renal failure: Qualifiers: Acute renal failure type: unspecified Qualified Code(s): N17.9 - Acute kidney failure, unspecified Code(s): N17.9 - Acute kidney failure, unspecified Status: Acute Assessment and Plan: -continue to monitor renal function, electrolytes and urine output (3) HTN (hypertension): Qualifiers: Hypertension type: essential hypertension Qualified Code(s): I10 - Essential (primary) hypertension Code(s): I10 - Essential (primary) hypertension Status: Acute Assessment and Plan: Essential hypertension, monitor blood pressure (4) Diabetes mellitus: Qualifiers: Diabetes mellitus type: type 2 Diabetes mellitus machine long goods helper insulin use: without [facility] use Diabetes mellitus complication status: without complication Qualified Code(s): E11.9 - Type 2 diabetes mellitus without complications Code(s): E11.9 - Type 2 diabetes mellitus without complications Status: Acute Assessment and Plan: Patient on oral hypoglycemics at home, currently will hold as patient is on insulin infusion -hemoglobin A1c was 9.3 -continue sliding scale insulin and Lantus as above (5) Leukocytosis (leucocytosis): Qualifiers: Leukocytosis type: unspecified Qualified Code(s): D72.829 - Elevated white blood cell count, unspecified Code(s): D72.829 - Elevated white blood cell count, unspecified Status: Acute Assessment and Plan: Chest x-ray and UA were negative for any infectious etiology - monitor cultures (6) Hypernatremia: Code(s): E87.0 - Hyperosmolality and hypernatremia Status: Acute Assessment and Plan: managing her ICU (7) Encephalopathy: Code(s): G93.40 - Encephalopathy, unspecified Status: Acute Assessment and Plan: Multifactorial, related to diabetic ketoacidosis, hyperglycemic state, hypernatremia, uremia, metabolic acidosis Plan -continue to monitor serial BMPs Subjective Date/time seen: 04/23/22 13:23 no new issues Review of Systems Review of Systems: 10 point ROS negative except as stated in HPI / Subjective Exam Narrative: General: Ill-appearing gentleman, in no acute distress HEENT: Dry oral mucosa, pupils equal and reactive Neck: No lymphadenopathy, supple Respiratory: Tachypneic, clear to auscultation bilaterally with adequate air entry Cardiac: S1-S2 is normal, sinus tachycardia Abdomen: Soft, nondistended, tender to palpation in epigastric and periumbilical area Extremities: No edema, pedal pulses are palpable Neuro: Patient opens his eyes to name, answers by saying yes and no, is able to tell me that he is at the hospital. But does not answer any other orientation questions. He does follow commands in all extremities Skin: Warm and dry Psych: Unable to assess
[2022-04-23 15:44] LABS: Glucose Point of Care 349 mg/dl (65-105)
[2022-04-23 16:43] LABS: Anion Gap 7 mmol/L (8-16); Blood Urea Nitrogen 59 mg/dL (9-20); Calcium 7.9 mg/dL (8.4-10.2); Carbon Dioxide 17 mmol/L (22-30); Chloride 139 mmol/L (98-107); Estimated CRCL calculation 39 ml/min; Estimated Glomerular Filt Rate 47; Glucose 345 mg/dL (65-110); Potassium 4.8 mmol/L (3.4-5.0); Sodium 163 mmol/L (137-145)
[2022-04-23] MEDS: KCL 20 MEQ/D5W 1,000 ML 1,000 ML 75 ML IV CONT (17:45)
[2022-04-23 19:55] LABS: Glucose Point of Care 288 mg/dl (65-105)
[2022-04-23 21:09] LABS: Anion Gap 11 mmol/L (8-16); Blood Urea Nitrogen 53 mg/dL (9-20); Calcium 8.1 mg/dL (8.4-10.2); Carbon Dioxide 16 mmol/L (22-30); Chloride 136 mmol/L (98-107); Estimated CRCL calculation 45 ml/min; Estimated Glomerular Filt Rate 55; Glucose 293 mg/dL (65-110); Potassium 4.3 mmol/L (3.4-5.0); Sodium 163 mmol/L (137-145)
[2022-04-24] VITALS (15 sets, daily range): BP systolic 144–157; BP diastolic 76–90; PULSE 84–98; RESP 13–27; TEMP 35.9–37.4; O2SAT 93–100
[2022-04-24] MEDS: INSULIN ASPART (*BKC) 100 UNITS/ML SUB-Q ×6 (00:05→20:20)
[2022-04-24 00:12] LABS: Glucose Point of Care 261 mg/dl (65-105)
[2022-04-24 01:05] LABS: Anion Gap 6 mmol/L (8-16); Blood Urea Nitrogen 44 mg/dL (9-20); Calcium 7.7 mg/dL (8.4-10.2); Carbon Dioxide 19 mmol/L (22-30); Chloride 135 mmol/L (98-107); Estimated CRCL calculation 48 ml/min; Estimated Glomerular Filt Rate > 60; Glucose 268 mg/dL (65-110); Potassium 4.1 mmol/L (3.4-5.0); Sodium 160 mmol/L (137-145)
[2022-04-24 03:08] LABS: Glucose Point of Care 223 mg/dl (65-105)
[2022-04-24] MEDS: CEFEPIME 2 GM in DEXTROSE 5% IN WATER 50 ML IVPB (03:47)
[2022-04-24] MEDS: ONDANSETRON INJ 4 MG/2 ML VIAL IV PUSH ×3 (04:00→16:12)
[2022-04-24 04:28] LABS: Basophils Absolute Auto 0.1 K/mm3 (0.0-0.1); Basophils Percent Auto 0.5 % (0.2-1.2); Eosinophils Absolute Auto 0.2 K/mm3 (0-0.3); Eosinophils Percent Auto 1.6 % (0-4.4); Hematocrit 40.9 % (42.0-52.0); Hemoglobin 12.6 g/dL (14.0-18.0); Immature Granulocyte Absolute 0.04 K/mm3 (0.00-0.031); Immature Granulocyte Percent A 0.4 % (0-0.5); Lymphocytes Absolute Auto 2.15 K/mm3 (0.9-3.2); Lymphocytes Percent Auto 22.5 % (18.3-44.2); Mean Corpuscular HGB Conc 30.8 g/dl (32-36); Mean Corpuscular Hemoglobin 25.8 pg (26-34); Mean Corpuscular Volume 83.8 fl (80-100); Mean Platelet Volume 10.3 fl (7.4-10.4); Monocytes Absolute Auto 0.7 K/mm3 (0.1-0.6); Neutrophils Absolute Auto 6.5 K/mm3 (1.3-6.7); Platelet Count Result 295 k/mm3 (150-375); Red Blood Count 4.88 M/mm3 (4.6-6.20); Red Cell Distribution Width 16.5 % (11.5-14.5); White Blood Count 9.6 K/mm3 (4.5-10.0)
[2022-04-24 04:39] LABS: Lactic Acid Reflex 2.2 mmol/L (0.7-2.0)
[2022-04-24 04:41] LABS: Alanine Aminotransferase 48 U/L (6-50); Albumin Level 3.6 g/dL (3.5-5.1); Alkaline Phosphatase 82 U/L (38-126); Anion Gap 7 mmol/L (8-16); Aspartate Amino Transferase 54 U/L (17-59); Bilirubin,Total 0.4 mg/dL (0.2-1.3); Blood Urea Nitrogen 39 mg/dL (9-20); Calcium 7.9 mg/dL (8.4-10.2); Carbon Dioxide 18 mmol/L (22-30); Chloride 132 mmol/L (98-107); Creatine Kinase 924 U/L (55-170); Estimated CRCL calculation 67 ml/min; Estimated Glomerular Filt Rate > 60; Glucose 231 mg/dL (65-110); Magnesium 2.3 mg/dL (1.6-2.3); Phosphorus 2.8 mg/dL (2.5-4.5); Potassium 3.9 mmol/L (3.4-5.0); Sodium 157 mmol/L (137-145)
[2022-04-24] MEDS: KCL 20 MEQ/D5W 1,000 ML 1,000 ML 75 ML IV CONT (07:10)
[2022-04-24 07:26] LABS: Reflex Lactic Acid Yes or No Add Lactic
[2022-04-24 07:59] LABS: Glucose Point of Care 226 mg/dl (65-105)
[2022-04-24] MEDS: INSULIN GLARGINE (*BKC) 100 UNITS/ML 32 UNITS SUB-Q (08:10)
[2022-04-24] MEDS: HEPARIN SODIUM 5,000 UNITS/ML VIAL 5000 UNITS SUB-Q ×2 (08:10→20:23)
[2022-04-24 08:28] LABS: Lactic Acid 1.6 mmol/L (0.7-2.0)
[2022-04-24 08:37] LABS: Anion Gap 6 mmol/L (8-16); Blood Urea Nitrogen 36 mg/dL (9-20); Calcium 7.7 mg/dL (8.4-10.2); Carbon Dioxide 19 mmol/L (22-30); Chloride 133 mmol/L (98-107); Estimated CRCL calculation 67 ml/min; Estimated Glomerular Filt Rate > 60; Glucose 254 mg/dL (65-110); Potassium 4.1 mmol/L (3.4-5.0); Sodium 158 mmol/L (137-145)
--- NOTE | 2022-04-24 08:39 | P.PNINT_ITS ---
Progress Note: A&P Assessment and Plan (1) Hypernatremia: Code(s): E87.0 - Hyperosmolality and hypernatremia Status: Acute Assessment and Plan: Hypernatremia likely related to dehydration, normal saline -since admission patient has received adequate fluids -NGT was placed on 04/23/2022 and was started on free water flushes, patient also on D5W with 20 mEq of KCl IV fluids -sodium levels improving gradually, 157 this morning -continue serial BMPs -appreciate Nephrology evaluation and recommendations (2) DKA (diabetic ketoacidosis): Qualifiers: Diabetes mellitus complication detail: with coma Diabetes mellitus type: other specified (including RAFY) Qualified Code(s): E13.11 - Other specified diabetes mellitus with ketoacidosis with coma Code(s): E11.10 - Type 2 diabetes mellitus with ketoacidosis without coma Status: Acute Assessment and Plan: Patient presented with the unresponsiveness from home, was found to be in DKA with elevated blood sugars, positive beta hydroxybutyrate, anion gap of 33 -CT scan of the brain with no intracranial abnormalities, chronic bilateral temporal lobe infarctions, chronic age-related findings. Chest x-ray with no acute cardiopulmonary disease. -urine was not reflective of a UTI but was positive for glucose with trace ketones -patient received adequate amount of IV fluids, -anion gap had closed, patient transition to long-acting insulin and sliding scale insulin. -currently on Lantus, Accu-Cheks and sliding scale insulin -continue to monitor serial BMPs (3) Acute renal failure: Qualifiers: Acute renal failure type: unspecified Qualified Code(s): N17.9 - Acute kidney failure, unspecified Code(s): N17.9 - Acute kidney failure, unspecified Status: Acute Assessment and Plan: RESOLVED Patient with acute renal failure, could be related to dehydration, hypovolemia secondary to diabetes ketoacidosis, patient was minimally responsive prolonged amount of time in his house -CK levels TRENDING DOWN -patient has received adequate amount of IV fluid -continue maintenance IV fluids per Nephrology -creatinine has normalized -patient has had good urine output -continue to monitor renal function, electrolytes and urine output (4) HTN (hypertension): Qualifiers: Hypertension type: essential hypertension Qualified Code(s): I10 - Essential (primary) hypertension Code(s): I10 - Essential (primary) hypertension Status: Acute Assessment and Plan: Essential hypertension, will hold p.o. home antihypertensives as patient is less responsive -will add p.r.n. hydralazine - (5) Diabetes mellitus: Qualifiers: Diabetes mellitus type: type 2 Diabetes mellitus continuous churn buttermaker insulin use: without retirement use Diabetes mellitus complication status: without complication Qualified Code(s): E11.9 - Type 2 diabetes mellitus without complications Code(s): E11.9 - Type 2 diabetes mellitus without complications Status: Acute Assessment and Plan: Patient on oral hypoglycemics at home -hemoglobin A1c was 9.3 -continue sliding scale insulin and Lantus as above (6) Leukocytosis (leucocytosis): Qualifiers: Leukocytosis type: unspecified Qualified Code(s): D72.829 - Elevated white blood cell count, unspecified Code(s): D72.829 - Elevated white blood cell count, unspecified Status: Acute Assessment and Plan: Chest x-ray and UA were negative for any infectious etiology -likely stress response, WBC count normalized -will nikki
--- NOTE | 2022-04-24 11:23 | PCFNICU ---
ICU Rounding Note: Pt current nutrition is Clear liquids and TF of Glucerna 1.2 at 20 ml/hr. Last recorded weight is 74.2 kg, up from 63.2 kg on admit. Bowel Motility:+BM reported / Labs Reviewed:Glu 254, Na 158, BUN 36, Hct 40.9,Hgb 12.6 Meds Noted:NovoLog,Lantus, KCL, Heparin Skin: WNL Additional Notes: Patient remains on clear liquids diet with ensure clear TID. Nursing is reporting poor po intake. NGT in place, plans for tube feedings to start today of Glucerna 1.2 at 20 ml/hr, goal rate at 50 ml/hr over 22 hours providing 1320 kcals and 66 gms protein. Meeting 65% caloric needs and 100% protein needs. 30 ml free water flush q 4 hours. MBS ordered. Following daily in ICU rounds. Will monitor every Thursday and Thursday.
--- NOTE | 2022-04-24 11:28 | PCOTNOTE ---
Attempted OT evaluation, patient going to work with speech therapy at this time. will follow.
[2022-04-24] MEDS: METOPROLOL TARTRATE 12.5 MG TABLET PO ×2 (11:33→20:24)
--- NOTE | 2022-04-24 11:50 | PM.IMPN ---
Progress Note: A&P Assessment and Plan (1) Hypernatremia: Code(s): E87.0 - Hyperosmolality and hypernatremia Status: Acute Assessment and Plan: Hypernatremia likely related to dehydration, normal saline -since admission patient has received adequate fluids -NGT was placed on 04/23/2022 and was started on free water flushes, patient also on D5W with 20 mEq of KCl IV fluids -sodium levels improving gradually, 157 this morning -continue serial BMPs -appreciate Nephrology evaluation and recommendations (2) DKA (diabetic ketoacidosis): Qualifiers: Diabetes mellitus complication detail: with coma Diabetes mellitus type: other specified (including RAFY) Qualified Code(s): E13.11 - Other specified diabetes mellitus with ketoacidosis with coma Code(s): E11.10 - Type 2 diabetes mellitus with ketoacidosis without coma Status: Acute Assessment and Plan: Patient presented with the unresponsiveness from home, was found to be in DKA with elevated blood sugars, positive beta hydroxybutyrate, anion gap of 33 -CT scan of the brain with no intracranial abnormalities, chronic bilateral temporal lobe infarctions, chronic age-related findings. Chest x-ray with no acute cardiopulmonary disease. -urine was not reflective of a UTI but was positive for glucose with trace ketones -patient received adequate amount of IV fluids, -anion gap had closed, patient transition to long-acting insulin and sliding scale insulin. -currently on Lantus, Accu-Cheks and sliding scale insulin -continue to monitor serial BMPs (3) Acute renal failure: Qualifiers: Acute renal failure type: unspecified Qualified Code(s): N17.9 - Acute kidney failure, unspecified Code(s): N17.9 - Acute kidney failure, unspecified Status: Acute Assessment and Plan: RESOLVED Patient with acute renal failure, could be related to dehydration, hypovolemia secondary to diabetes ketoacidosis, patient was minimally responsive prolonged amount of time in his house -CK levels TRENDING DOWN -patient has received adequate amount of IV fluid -continue maintenance IV fluids per Nephrology -creatinine has normalized -patient has had good urine output -continue to monitor renal function, electrolytes and urine output (4) HTN (hypertension): Qualifiers: Hypertension type: essential hypertension Qualified Code(s): I10 - Essential (primary) hypertension Code(s): I10 - Essential (primary) hypertension Status: Acute Assessment and Plan: Essential hypertension, will hold p.o. home antihypertensives as patient is less responsive -will add p.r.n. hydralazine - (5) Diabetes mellitus: Qualifiers: Diabetes mellitus type: type 2 Diabetes mellitus oysterman insulin use: without [facility] use Diabetes mellitus complication status: without complication Qualified Code(s): E11.9 - Type 2 diabetes mellitus without complications Code(s): E11.9 - Type 2 diabetes mellitus without complications Status: Acute Assessment and Plan: Patient on oral hypoglycemics at home -hemoglobin A1c was 9.3 -continue sliding scale insulin and Lantus as above (6) Leukocytosis (leucocytosis): Qualifiers: Leukocytosis type: unspecified Qualified Code(s): D72.829 - Elevated white blood cell count, unspecified Code(s): D72.829 - Elevated white blood cell count, unspecified Status: Acute Assessment and Plan: Chest x-ray and UA were negative for any infectious etiology -likely stress response, WBC count normalized -will continue to monitor -currently on cefepime and vancomycin which was started on 04/22/2022 in the ER. Deescalate antibiotics once cultures are negative -04/22/2021: Blood cultures growing Gram-positive cocci 1/2 bottles -04/22/2021: Urine cultures negative -procalcitonin was 0.5 (7) Encephalopathy: Code(s): G93.40 - Encephalopathy, unspecified
[2022-04-24 11:51] LABS: Glucose Point of Care 305 mg/dl (65-105)
--- NOTE | 2022-04-24 12:17 | PCSTNOTE ---
Please refer to the Bedside Swallow Evaluation in the EMR. Please note, silent aspiration cannot be ruled out at bedside.
[2022-04-24 12:53] LABS: Anion Gap 8 mmol/L (8-16); Blood Urea Nitrogen 32 mg/dL (9-20); Calcium 7.6 mg/dL (8.4-10.2); Carbon Dioxide 15 mmol/L (22-30); Chloride 130 mmol/L (98-107); Estimated CRCL calculation 74 ml/min; Estimated Glomerular Filt Rate > 60; Glucose 288 mg/dL (65-110); Potassium 4.5 mmol/L (3.4-5.0); Sodium 153 mmol/L (137-145)
--- NOTE | 2022-04-24 13:32 | P.PNNP_ITS ---
Progress Note: A&P Assessment and Plan (1) Acute renal failure: Qualifiers: Acute renal failure type: unspecified Qualified Code(s): N17.9 - Acute kidney failure, unspecified Code(s): N17.9 - Acute kidney failure, unspecified Status: Acute Assessment and Plan: * resolved/resolving * suspect related to volume depletion/prerenal factors * s/p aggressive IVF resuscitation * renal function improving * making reasonable urine output * follow repeat labs and UOP (2) Hypernatremia: Code(s): E87.0 - Hyperosmolality and hypernatremia Status: Acute Assessment and Plan: * suspect related to dehydration and aggressive IVF resuscitation with normal saline * initially switched to half normal saline * given persistence of hypernatremia, now of D5W IVFs * I doubt DI since sodium starting to improve * CT of head noted * started on free water flushes -- will try to wean of IVFs * follow repeat sodium levels (3) DKA (diabetic ketoacidosis): Qualifiers: Diabetes mellitus complication detail: with coma Diabetes mellitus type: other specified (including RAFY) Qualified Code(s): E13.11 - Other specified diabetes mellitus with ketoacidosis with coma Code(s): E11.10 - Type 2 diabetes mellitus with ketoacidosis without coma Status: Acute Assessment and Plan: * as noted by admission testing (hyperglycemia, positive beta hydroxybutyrate, + gap...etc) * s/p aggressive IVF resuscitation * s/p DKA protocol * follow accuchecks/sugars (4) HTN (hypertension): Qualifiers: Hypertension type: essential hypertension Qualified Code(s): I10 - Essential (primary) hypertension Code(s): I10 - Essential (primary) hypertension Status: Acute Assessment and Plan: * reasonable control * follow trend of hemodynamics (5) Encephalopathy: Code(s): G93.40 - Encephalopathy, unspecified Status: Acute Assessment and Plan: * due to multiple issues - DKA, hyperglycemia, hypernatremia, uremia * CT of brain noted * consider further imaging if other underlying cause are being treatted Will continue to follow. Subjective Date/time seen: 04/24/22 13:22 Mentation has signficantly improved since I last saw him; has NGT in place and getting free water flushes; no apparent distress voiced; states he is quite hungry (has not really eaten anything of significant since admission); sodium levels are finally starting to improve. Exam Narrative: General: WD/WN male in NAD Heart: normal S1 and S2; no rub Lungs: clear to auscultation Abdomen: soft, nontender, nondistended, positive bowel sounds Extremities: no cyanosis or clubbing; no edema Skin: warm and dry Objective Data Vital Signs Vital Signs: Vital Signs 04/24/22 12:00 36.9 C 94 13 152/88 H 98 04/24/22 11:56 99 Room Air 04/24/22 11:33 96 04/24/22 10:00 97 04/24/22 10:00 98 27 H 144/76 H 100 04/24/22 08:00 97 Room Air 04/24/22 08:00 96 04/24/22 08:00 36.8 C 95 23 H 147/84 H 100 04/24/22 06:00 88 20 145/89 H 98 04/24/22 06:00 88 04/24/22 04:00 36.2 C L 86 22 H 153/83 H 93 04/24/22 04:00 86 04/24/22 04:00 Room Air 04/24/22 02:00 97 20 155/86 H 96
--- NOTE | 2022-04-24 13:32 | PM.PNNEP ---
Progress Note: A&P Assessment and Plan (1) Acute renal failure: Qualifiers: Acute renal failure type: unspecified Qualified Code(s): N17.9 - Acute kidney failure, unspecified Code(s): N17.9 - Acute kidney failure, unspecified Status: Acute Assessment and Plan: resolved/resolving suspect related to volume depletion/prerenal factors s/p aggressive IVF resuscitation renal function improving making reasonable urine output follow repeat labs and UOP (2) Hypernatremia: Code(s): E87.0 - Hyperosmolality and hypernatremia Status: Acute Assessment and Plan: suspect related to dehydration and aggressive IVF resuscitation with normal saline initially switched to half normal saline given persistence of hypernatremia, now of D5W IVFs I doubt DI since sodium starting to improve CT of head noted started on free water flushes -- will try to wean of IVFs follow repeat sodium levels (3) DKA (diabetic ketoacidosis): Qualifiers: Diabetes mellitus complication detail: with coma Diabetes mellitus type: other specified (including RAFY) Qualified Code(s): E13.11 - Other specified diabetes mellitus with ketoacidosis with coma Code(s): E11.10 - Type 2 diabetes mellitus with ketoacidosis without coma Status: Acute Assessment and Plan: as noted by admission testing (hyperglycemia, positive beta hydroxybutyrate, + gap...etc) s/p aggressive IVF resuscitation s/p DKA protocol follow accuchecks/sugars (4) HTN (hypertension): Qualifiers: Hypertension type: essential hypertension Qualified Code(s): I10 - Essential (primary) hypertension Code(s): I10 - Essential (primary) hypertension Status: Acute Assessment and Plan: reasonable control follow trend of hemodynamics (5) Encephalopathy: Code(s): G93.40 - Encephalopathy, unspecified Status: Acute Assessment and Plan: due to multiple issues - DKA, hyperglycemia, hypernatremia, uremia CT of brain noted consider further imaging if other underlying cause are being treatted Will continue to follow. Subjective Date/time seen: 04/24/22 13:22 Mentation has signficantly improved since I last saw him; has NGT in place and getting free water flushes; no apparent distress voiced; states he is quite hungry (has not really eaten anything of significant since admission); sodium levels are finally starting to improve. Exam Narrative: General: WD/WN male in NAD Heart: normal S1 and S2; no rub Lungs: clear to auscultation Abdomen: soft, nontender, nondistended, positive bowel sounds Extremities: no cyanosis or clubbing; no edema Skin: warm and dry Objective Data Vital Signs Vital Signs: Vital Signs 04/24/22 12:00 36.9 C 94 13 152/88 H 98 04/24/22 11:56 99 Room Air 04/24/22 11:33 96 04/24/22 10:00 97 04/24/22 10:00 98 27 H 144/76 H 100 04/24/22 08:00 97 Room Air 04/24/22 08:00 96 04/24/22 08:00 36.8 C 95 23 H 147/84 H 100 04/24/22 06:00 88 20 145/89 H 98 04/24/22 06:00 88 04/24/22 04:00 36.2 C L 86 22 H 153/83 H 93 04/24/22 04:00 86 04/24/22 04:00 Room Air 04/24/22 02:00 97 20 155/86 H 96 04/24/22 02:00 97 04/24/22 00:00 Room Air 04/24/22 00:00 35.9 C L 91 26 H 157/90 H 99 04/24/22 00:00 91 04/23/22 22:00 90 26 H 151/81 H 100 04/23/22 22:00 90 04/23/22 20:45 100 100 Room Air 04/23/22 20:00 98 04/23/22 20:00 Room Air 04/23/22 20:00 36.3 C L 97 26 H 158/81 H 100 Intake/Output Intake/Output: Intake & Output 04/21/22 04/22/22 04/23/22 04/24/22 23:59 23:59 23:59 23:59 Intake Total 3471 1393 3307 Output Total 9476 6745 0018 Balance 4695 7464 235 Meds/Results Medications: Active Medications Generic Name Dose Route Start Last Admin Trade Name
[2022-04-24 16:02] LABS: Glucose Point of Care 317 mg/dl (65-105)
[2022-04-24] MEDS: ACETAMINOPHEN 325 MG TABLET 650 MG PO ×2 (16:11→20:23)
[2022-04-24] MEDS: hydrALAZINE HCL 20 MG/ML VIAL 10 MG IV PUSH (16:12)
[2022-04-24 17:37] LABS: Anion Gap 11 mmol/L (8-16); Blood Urea Nitrogen 28 mg/dL (9-20); Calcium 7.7 mg/dL (8.4-10.2); Carbon Dioxide 12 mmol/L (22-30); Chloride 127 mmol/L (98-107); Estimated CRCL calculation 74 ml/min; Estimated Glomerular Filt Rate > 60; Glucose 300 mg/dL (65-110); Potassium 4.2 mmol/L (3.4-5.0); Sodium 150 mmol/L (137-145)
[2022-04-24 20:32] LABS: Glucose Point of Care 215 mg/dl (65-105)
[2022-04-24 20:58] LABS: Anion Gap 7 mmol/L (8-16); Blood Urea Nitrogen 25 mg/dL (9-20); Calcium 7.8 mg/dL (8.4-10.2); Carbon Dioxide 20 mmol/L (22-30); Chloride 123 mmol/L (98-107); Estimated CRCL calculation 83 ml/min; Estimated Glomerular Filt Rate > 60; Glucose 218 mg/dL (65-110); Potassium 4.1 mmol/L (3.4-5.0); Sodium 150 mmol/L (137-145)
[2022-04-24] MEDS: HALOPERIDOL LACTATE 5 MG/ML VIAL IM (22:59)
[2022-04-25] VITALS (14 sets, daily range): BP systolic 122–172; BP diastolic 62–86; PULSE 77–99; RESP 12–25; TEMP 36.7–37.5; O2SAT 95–100
[2022-04-25 00:15] LABS: Glucose Point of Care 144 mg/dl (65-105)
[2022-04-25 02:07] LABS: Anion Gap 7 mmol/L (8-16); Blood Urea Nitrogen 24 mg/dL (9-20); Calcium 7.8 mg/dL (8.4-10.2); Carbon Dioxide 21 mmol/L (22-30); Chloride 121 mmol/L (98-107); Estimated CRCL calculation 83 ml/min; Estimated Glomerular Filt Rate > 60; Glucose 147 mg/dL (65-110); Sodium 149 mmol/L (137-145)
[2022-04-25] MEDS: CEFEPIME 2 GM in DEXTROSE 5% IN WATER 50 ML IVPB (04:19)
[2022-04-25 04:26] LABS: Glucose Point of Care 133 mg/dl (65-105)
[2022-04-25 06:51] LABS: Basophils Percent Auto 0.4 % (0.2-1.2); Eosinophils Absolute Auto 0.2 K/mm3 (0-0.3); Eosinophils Percent Auto 2.3 % (0-4.4); Hematocrit 39.4 % (42.0-52.0); Hemoglobin 12.5 g/dL (14.0-18.0); Immature Granulocyte Absolute 0.09 K/mm3 (0.00-0.031); Immature Granulocyte Percent A 0.9 % (0-0.5); Lymphocytes Absolute Auto 2.61 K/mm3 (0.9-3.2); Lymphocytes Percent Auto 27.2 % (18.3-44.2); Mean Corpuscular HGB Conc 31.7 g/dl (32-36); Mean Corpuscular Hemoglobin 26.3 pg (26-34); Mean Corpuscular Volume 82.8 fl (80-100); Mean Platelet Volume 10.4 fl (7.4-10.4); Monocytes Absolute Auto 0.7 K/mm3 (0.1-0.6); Neutrophils Percent Auto 62.2 % (45.5-73.1); Platelet Count Result 238 k/mm3 (150-375); Red Blood Count 4.76 M/mm3 (4.6-6.20); Red Cell Distribution Width 15.9 % (11.5-14.5); White Blood Count 9.6 K/mm3 (4.5-10.0)
[2022-04-25] MEDS: HALOPERIDOL LACTATE 5 MG/ML VIAL IM (06:55)
[2022-04-25 07:04] LABS: Alanine Aminotransferase 44 U/L (6-50); Albumin Level 3.4 g/dL (3.5-5.1); Alkaline Phosphatase 95 U/L (38-126); Anion Gap 7 mmol/L (8-16); Aspartate Amino Transferase 41 U/L (17-59); Bilirubin,Total 0.5 mg/dL (0.2-1.3); Blood Urea Nitrogen 22 mg/dL (9-20); Calcium 8.1 mg/dL (8.4-10.2); Carbon Dioxide 20 mmol/L (22-30); Chloride 116 mmol/L (98-107); Creatine Kinase 459 U/L (55-170); Estimated CRCL calculation 83 ml/min; Estimated Glomerular Filt Rate > 60; Glucose 233 mg/dL (65-110); Magnesium 1.9 mg/dL (1.6-2.3); Phosphorus 2.9 mg/dL (2.5-4.5); Potassium 4.5 mmol/L (3.4-5.0); Sodium 143 mmol/L (137-145)
[2022-04-25] MEDS: HEPARIN SODIUM 5,000 UNITS/ML VIAL 5000 UNITS SUB-Q ×2 (09:38→21:00)
[2022-04-25 09:55] LABS: Glucose Point of Care 259 mg/dl (65-105)
[2022-04-25] MEDS: INSULIN GLARGINE (*BKC) 100 UNITS/ML 32 UNITS SUB-Q (09:56)
[2022-04-25] MEDS: INSULIN ASPART (*BKC) 100 UNITS/ML SUB-Q ×2 (09:56→13:01)
--- NOTE | 2022-04-25 09:58 | PCSTNOTE ---
Please refer to the Modified Barium Swallow Evaluation in the EMR.
[2022-04-25 10:19] LABS: Anion Gap 7 mmol/L (8-16); Blood Urea Nitrogen 22 mg/dL (9-20); Calcium 8.1 mg/dL (8.4-10.2); Carbon Dioxide 20 mmol/L (22-30); Chloride 116 mmol/L (98-107); Estimated CRCL calculation 83 ml/min; Estimated Glomerular Filt Rate > 60; Glucose 248 mg/dL (65-110); Potassium 4.6 mmol/L (3.4-5.0); Sodium 143 mmol/L (137-145)
[2022-04-25] MEDS: SIMVASTATIN 20 MG TABLET PO (10:30)
[2022-04-25] MEDS: TAMSULOSIN HCL 0.4 MG CAPSULE PO (10:30)
[2022-04-25] MEDS: GABAPENTIN 300 MG CAPSULE 900 MG PO ×2 (10:31→21:01)
[2022-04-25] MEDS: FINASTERIDE 5 MG TABLET PO (10:31)
[2022-04-25] MEDS: METOPROLOL TARTRATE 12.5 MG TABLET PO ×2 (10:32→21:01)
--- NOTE | 2022-04-25 11:30 | PCNFU ---
Nutrition Follow-Up Complete: Inadequate Oral Intake as related to DKA as evidenced by poor po intake. Goal: Adequate Intake of at least 75% of meals/supplements Patient is not meeting goal at this time. Pt current nutrition is Glucerna 1.2 at 50 ml/hr over 22 hours. Nutrition recommendation: goal rate at 70 ml/hr. Last recorded weight is 74.3 kg, up from 63.2 kg from admit. Bowel Motility: +Bm reported 04/25 Labs Reviewed:Glu 233, ALb 3.4,Hgb 12.5,Hct 39.4 Meds Noted:Zocar,Lantus, NovoLog, Vancomycin, Zofran, Cefepime. Skin: WNL Additional Notes: Patient had MBS 04/25-recommending non oral feedings. Called MD today regarding nutritional status. New orders for Glucerna 1.2 goal rate at 70 ml/hr over 22 hours, providing 1848 kcals/92 gms protein/1242 ml water. Free water flush 30 ml q 4 hours. Clear liquid diet has been discontinued. Agree with diet orders. Will monitor every Thursday and Thursday.
--- NOTE | 2022-04-25 12:06 | PM.IMPN ---
Progress Note: A&P Assessment and Plan (1) Hypernatremia: Code(s): E87.0 - Hyperosmolality and hypernatremia Status: Acute Assessment and Plan: Sodium level improved. -appreciate Nephrology evaluation and recommendations (2) DKA (diabetic ketoacidosis): Qualifiers: Diabetes mellitus complication detail: with coma Diabetes mellitus type: other specified (including RAFY) Qualified Code(s): E13.11 - Other specified diabetes mellitus with ketoacidosis with coma Code(s): E11.10 - Type 2 diabetes mellitus with ketoacidosis without coma Status: Acute Assessment and Plan: Improved -anion gap had closed, patient transition to long-acting insulin and sliding scale insulin. -currently on Lantus, Accu-Cheks and sliding scale insulin -continue to monitor serial BMPs (3) Acute renal failure: Qualifiers: Acute renal failure type: unspecified Qualified Code(s): N17.9 - Acute kidney failure, unspecified Code(s): N17.9 - Acute kidney failure, unspecified Status: Acute Assessment and Plan: RESOLVED (4) HTN (hypertension): Qualifiers: Hypertension type: essential hypertension Qualified Code(s): I10 - Essential (primary) hypertension Code(s): I10 - Essential (primary) hypertension Status: Acute Assessment and Plan: Monitor blood pressure - (5) Diabetes mellitus: Qualifiers: Diabetes mellitus type: type 2 Diabetes mellitus prison insulin use: without superintendent terminal use Diabetes mellitus complication status: without complication Qualified Code(s): E11.9 - Type 2 diabetes mellitus without complications Code(s): E11.9 - Type 2 diabetes mellitus without complications Status: Acute Assessment and Plan: -continue sliding scale insulin and Lantus as above (6) Leukocytosis (leucocytosis): Qualifiers: Leukocytosis type: unspecified Qualified Code(s): D72.829 - Elevated white blood cell count, unspecified Code(s): D72.829 - Elevated white blood cell count, unspecified Status: Acute Assessment and Plan: Concern for infection is low. One of 2 blood cultures positive likely contamination. (7) Encephalopathy: Code(s): G93.40 - Encephalopathy, unspecified Status: Acute Assessment and Plan: Improved Plan -continue to monitor serial BMPs Subjective Date/time seen: 04/25/22 12:06 agitated this am no new complaints Exam Narrative: General: Ill-appearing gentleman, in no acute distress HEENT: Moist oral mucosa, pupils equal and reactive Neck: No lymphadenopathy, supple Respiratory: clear to auscultation bilaterally with adequate air entry, no wheezing Cardiac: S1-S2 is normal, regular rate and rhythm Abdomen: Soft, nondistended, nontender, hypoactive bowel sounds Extremities: No edema, pedal pulses are palpable Neuro: Patient is more awake, alert, able to tell me that he is at the hospital and his date of . He does not know the year or the president. Patient does follows simple commands in all extremities and is able to answer questions appropriately today Skin: Warm and dry Psych: Anxious Objective Data Vital Signs Vital Signs: Vital Signs - 24 hr 04/24/22 14:00 04/24/22 16:00 04/24/22 16:00 Temperature 98.5 F Pulse Rate 93 97 Respiratory Rate 21 H Blood Pressure 157/81 H Pulse Oximetry 100 99 Oxygen Delivery Room Air 04/24/22 16:00 04/24/22 18:00 04/24/22 20:24 Temperature Pulse Rate 94 93 92 Respiratory Rate Blood Pressure Pulse Oximetry Oxygen Delivery 04/24/22 20:00 04/24/22 20:00 04/24/22 20:00 Temperature 99.3 F Pulse Rate 92 84 Respiratory Rate 19 Blood Pressure 151/85 H Pulse Oximetry 100 Oxygen Delivery Room Air 04/24/22 22:00 04/25/22 00:00 04/25/22 00:00 Temperature 99.5 F Pulse Rate 88 91 Respiratory Rate 23 H Blood Pressure
[2022-04-25 12:59] LABS: Glucose Point of Care 201 mg/dl (65-105)
--- NOTE | 2022-04-25 13:53 | PM.PNNEP ---
Progress Note: A&P Assessment and Plan (1) Acute renal failure: Qualifiers: Acute renal failure type: unspecified Qualified Code(s): N17.9 - Acute kidney failure, unspecified Code(s): N17.9 - Acute kidney failure, unspecified Status: Acute Assessment and Plan: resolved/resolving suspect related to volume depletion/prerenal factors s/p aggressive IVF resuscitation renal function improving making reasonable urine output follow repeat labs and UOP (2) Hypernatremia: Code(s): E87.0 - Hyperosmolality and hypernatremia Status: Acute Assessment and Plan: suspect related to dehydration and aggressive IVF resuscitation with normal saline initially switched to half normal saline given persistence of hypernatremia, now of D5W IVFs I doubt DI since sodium stable now CT of head noted on free water flushes but will reduce amount -- hopefully should be able to drink water soon follow repeat sodium levels (3) DKA (diabetic ketoacidosis): Qualifiers: Diabetes mellitus complication detail: with coma Diabetes mellitus type: other specified (including RAFY) Qualified Code(s): E13.11 - Other specified diabetes mellitus with ketoacidosis with coma Code(s): E11.10 - Type 2 diabetes mellitus with ketoacidosis without coma Status: Acute Assessment and Plan: as noted by admission testing (hyperglycemia, positive beta hydroxybutyrate, + gap...etc) s/p aggressive IVF resuscitation s/p DKA protocol follow accuchecks/sugars (4) HTN (hypertension): Qualifiers: Hypertension type: essential hypertension Qualified Code(s): I10 - Essential (primary) hypertension Code(s): I10 - Essential (primary) hypertension Status: Acute Assessment and Plan: reasonable control follow trend of hemodynamics (5) Encephalopathy: Code(s): G93.40 - Encephalopathy, unspecified Status: Acute Assessment and Plan: due to multiple issues - DKA, hyperglycemia, hypernatremia, uremia CT of brain noted follow mentation Not much else to add - will continue to follow from a distance. Subjective Date/time seen: 04/25/22 13:53 No new issues or complaints voiced although some issues with agitation noted at the time of my visit and per nurisng report; sodium has normalized and kidney function is back to baseline; no other events overnight or earlier this AM. Exam Narrative: General: WD/WN male in NAD Heart: normal S1 and S2; no rub Lungs: clear to auscultation Abdomen: soft, nontender, nondistended, positive bowel sounds Extremities: no cyanosis or clubbing; no edema Skin: warm and dry Objective Data Vital Signs Vital Signs: Vital Signs Temp Pulse Resp BP Pulse Ox O2 Del Method 04/25/22 12:00 84 04/25/22 10:00 84 04/25/22 08:00 90 24 H 122/85 99 04/25/22 08:00 82 04/25/22 16:00 Room Air 04/25/22 12:00 Room Air 04/25/22 08:00 Room Air 04/25/22 08:19 99 Room Air 04/25/22 06:00 86 04/25/22 04:00 85 04/25/22 04:00 Room Air 04/25/22 04:00 37.5 C 84 22 H 145/86 H 100 04/25/22 02:00 83 04/25/22 00:56 143/76 H 04/25/22 00:00 95 04/25/22 00:00 Room Air 04/25/22 00:00 37.5 C 91 23 H 172/79 H 100 04/24/22 22:00 88 04/24/22 20:00 Room Air 04/24/22 20:00 84 04/24/22 20:00 37.4 C 92 19 151/85 H 100 04/24/22 20:24 92 04/24/22 18:00 93 Intake/Output Intake/Output: Intake & Output 04/22/22 04/23/22 04/24/22 04/25/22 23:59 23:59 23:59 23:59 Intake Total 3570 4294 3435 1502 Output Total 2275 2995 2375 2525 Balance 4673 [facility] 3899 -2939 Meds/Results Medications: Active Medications Generic Name Dose Route Start Last Admin Trade Name Freq PRN Reason Stop Dose Admin Acetaminophen 650 mg 04/24/22 11:59 04/24/22 20:23 Acetaminop
--- NOTE | 2022-04-25 13:53 | P.PNNP_ITS ---
Progress Note: A&P Assessment and Plan (1) Acute renal failure: Qualifiers: Acute renal failure type: unspecified Qualified Code(s): N17.9 - Acute kidney failure, unspecified Code(s): N17.9 - Acute kidney failure, unspecified Status: Acute Assessment and Plan: * resolved/resolving * suspect related to volume depletion/prerenal factors * s/p aggressive IVF resuscitation * renal function improving * making reasonable urine output * follow repeat labs and UOP (2) Hypernatremia: Code(s): E87.0 - Hyperosmolality and hypernatremia Status: Acute Assessment and Plan: * suspect related to dehydration and aggressive IVF resuscitation with normal saline * initially switched to half normal saline * given persistence of hypernatremia, now of D5W IVFs * I doubt DI since sodium stable now * CT of head noted * on free water flushes but will reduce amount -- hopefully should be able to drink water soon * follow repeat sodium levels (3) DKA (diabetic ketoacidosis): Qualifiers: Diabetes mellitus complication detail: with coma Diabetes mellitus type: other specified (including RAFY) Qualified Code(s): E13.11 - Other specified diabetes mellitus with ketoacidosis with coma Code(s): E11.10 - Type 2 diabetes mellitus with ketoacidosis without coma Status: Acute Assessment and Plan: * as noted by admission testing (hyperglycemia, positive beta hydroxybutyrate, + gap...etc) * s/p aggressive IVF resuscitation * s/p DKA protocol * follow accuchecks/sugars (4) HTN (hypertension): Qualifiers: Hypertension type: essential hypertension Qualified Code(s): I10 - Essential (primary) hypertension Code(s): I10 - Essential (primary) hypertension Status: Acute Assessment and Plan: * reasonable control * follow trend of hemodynamics (5) Encephalopathy: Code(s): G93.40 - Encephalopathy, unspecified Status: Acute Assessment and Plan: * due to multiple issues - DKA, hyperglycemia, hypernatremia, uremia * CT of brain noted * follow mentation Not much else to add - will continue to follow from a distance. Subjective Date/time seen: 04/25/22 13:53 No new issues or complaints voiced although some issues with agitation noted at the time of my visit and per nurisng report; sodium has normalized and kidney function is back to baseline; no other events overnight or earlier this AM. Exam Narrative: General: WD/WN male in NAD Heart: normal S1 and S2; no rub Lungs: clear to auscultation Abdomen: soft, nontender, nondistended, positive bowel sounds Extremities: no cyanosis or clubbing; no edema Skin: warm and dry Objective Data Vital Signs Vital Signs: Vital Signs Temp Pulse Resp BP Pulse Ox O2 Del Method 04/25/22 12:00 84 04/25/22 10:00 84 04/25/22 08:00 90 24 H 122/85 99 04/25/22 08:00 82 04/25/22 16:00 Room Air 04/25/22 12:00 Room Air 04/25/22 08:00 Room Air 04/25/22 08:19 99 Room Air 04/25/22 06:00 86 04/25/22 04:00 85 04/25/22 04:00 Room Air 04/25/22 04:00 37.5 C 84 22 H 145/86 H 100 04/25/22 02:00 83 04/25/22 00:56 143/76 H 04/25/22 00:00 95 04/25
--- NOTE | 2022-04-25 14:07 | PCPTNOTE ---
attempted PT eval 1400--pt in ICU and unresponsive, sound asleep;unable to perform eval at this time; RN reports he was awake all night screaming and yelling;
[2022-04-25 14:29] LABS: Anion Gap 5 mmol/L (8-16); Blood Urea Nitrogen 19 mg/dL (9-20); Calcium 8.7 mg/dL (8.4-10.2); Carbon Dioxide 21 mmol/L (22-30); Chloride 116 mmol/L (98-107); Estimated CRCL calculation 94 ml/min; Estimated Glomerular Filt Rate > 60; Glucose 202 mg/dL (65-110); Potassium 4.7 mmol/L (3.4-5.0); Sodium 142 mmol/L (137-145)
--- NOTE | 2022-04-25 14:43 | PCOTNOTE ---
Attempted OT evaluation. Patient is unresponsive and sound asleep at this time. Unable to perform eval. Will continue to attempt.
[2022-04-25 16:51] LABS: Glucose Point of Care 191 mg/dl (65-105)
--- NOTE | 2022-04-25 17:45 | ADMGEN ---
This patient, [place], was tranferred to Medical Room 246-01. Patient/family oriented to hospital policies and general routines including ID bracelet, bed and alarms, visiting hours, pain management, procedures, bathroom and other care routines, personal items, smoking policy, room service/diet, and visiting hours. Information on how to activate the Rapid Response Team has been discussed. Patient/Family are encouraged to report perceived risks to care and to ask questions if they do not understand what they are told or what they should do.
[2022-04-25] MEDS: QUEtiapine FUMARATE 25 MG TABLET 50 MG PO (21:01)
[2022-04-25 21:24] LABS: Glucose Point of Care 199 mg/dl (65-105)
[2022-04-25] MEDS: ACETAMINOPHEN 325 MG TABLET 650 MG PO (21:32)
[2022-04-25] MEDS: ALPRAZolam (*CRX) 0.5 MG TABLET PO (21:32)
[2022-04-26] VITALS: BP 137/73; PULSE 88; RESP 20; TEMP 36.2; O2SAT 95
[2022-04-26] MEDS: INSULIN ASPART (*BKC) 100 UNITS/ML SUB-Q ×3 (00:15→09:00)
[2022-04-26 00:20] LABS: Glucose Point of Care 240 mg/dl (65-105)
[2022-04-26 04:59] VITALS: BP 130/81; PULSE 105; RESP 20; TEMP 36.1; O2SAT 94
[2022-04-26] MEDS: GABAPENTIN 300 MG CAPSULE 900 MG PO (05:50)
[2022-04-26 06:21] LABS: Glucose Point of Care 267 mg/dl (65-105)
[2022-04-26 08:08] LABS: Glucose Point of Care 287 mg/dl (65-105)
[2022-04-26] MEDS: METOPROLOL TARTRATE 12.5 MG TABLET PO (08:53)
[2022-04-26] MEDS: FINASTERIDE 5 MG TABLET PO (08:54)
[2022-04-26] MEDS: SIMVASTATIN 20 MG TABLET PO (08:54)
[2022-04-26] MEDS: TAMSULOSIN HCL 0.4 MG CAPSULE PO (08:54)
[2022-04-26] MEDS: INSULIN GLARGINE (*BKC) 100 UNITS/ML 32 UNITS SUB-Q (08:59)
[2022-04-26] MEDS: HEPARIN SODIUM 5,000 UNITS/ML VIAL 5000 UNITS SUB-Q ×2 (09:04→20:26)
--- NOTE | 2022-04-26 09:27 | PCOTNOTE ---
Attempted OT evaluation this am; pt. was unresponsive to commands; RN reports he was more awake earlier. Will attempt again as able.
--- NOTE | 2022-04-26 10:33 | PM.IMPN ---
Progress Note: A&P Assessment and Plan (1) Hypernatremia: Code(s): E87.0 - Hyperosmolality and hypernatremia Status: Acute Assessment and Plan: Sodium level improved. -appreciate Nephrology evaluation and recommendations (2) DKA (diabetic ketoacidosis): Qualifiers: Diabetes mellitus complication detail: with coma Diabetes mellitus type: other specified (including RAFY) Qualified Code(s): E13.11 - Other specified diabetes mellitus with ketoacidosis with coma Code(s): E11.10 - Type 2 diabetes mellitus with ketoacidosis without coma Status: Acute Assessment and Plan: Improved -anion gap had closed, patient transition to long-acting insulin and sliding scale insulin. -currently on Lantus, Accu-Cheks and sliding scale insulin -continue to monitor serial BMPs (3) Acute renal failure: Qualifiers: Acute renal failure type: unspecified Qualified Code(s): N17.9 - Acute kidney failure, unspecified Code(s): N17.9 - Acute kidney failure, unspecified Status: Acute Assessment and Plan: RESOLVED (4) HTN (hypertension): Qualifiers: Hypertension type: essential hypertension Qualified Code(s): I10 - Essential (primary) hypertension Code(s): I10 - Essential (primary) hypertension Status: Acute Assessment and Plan: Monitor blood pressure - (5) Diabetes mellitus: Qualifiers: Diabetes mellitus type: type 2 Diabetes mellitus [facility] insulin use: without equipment operator intermodal yard use Diabetes mellitus complication status: without complication Qualified Code(s): E11.9 - Type 2 diabetes mellitus without complications Code(s): E11.9 - Type 2 diabetes mellitus without complications Status: Acute Assessment and Plan: -continue sliding scale insulin and Lantus as above (6) Leukocytosis (leucocytosis): Qualifiers: Leukocytosis type: unspecified Qualified Code(s): D72.829 - Elevated white blood cell count, unspecified Code(s): D72.829 - Elevated white blood cell count, unspecified Status: Acute Assessment and Plan: Concern for infection is low. One of 2 blood cultures positive likely contamination. (7) Encephalopathy: Code(s): G93.40 - Encephalopathy, unspecified Status: Acute Assessment and Plan: Improved Plan -continue to monitor serial BMPs Subjective Date/time seen: 04/26/22 10:33 No new issues Overnite. Having some mild abdominal cramping. No nausea vomiting. Exam Narrative: General: Ill-appearing gentleman, in no acute distress HEENT: Moist oral mucosa, pupils equal and reactive Neck: No lymphadenopathy, supple Respiratory: clear to auscultation bilaterally with adequate air entry, no wheezing Cardiac: S1-S2 is normal, regular rate and rhythm Abdomen: Soft, nondistended, nontender, hypoactive bowel sounds Extremities: No edema, pedal pulses are palpable Neuro: Patient is more awake, alert, able to tell me that he is at the hospital and his date of . He does not know the year or the president. Patient does follows simple commands in all extremities and is able to answer questions appropriately today Skin: Warm and dry Psych: Anxious Objective Data Vital Signs Vital Signs: Vital Signs - 24 hr 04/25/22 12:00 04/25/22 16:00 04/25/22 12:00 Temperature Pulse Rate 84 Respiratory Rate Blood Pressure Pulse Oximetry Oxygen Delivery Room Air Room Air 04/25/22 14:00 04/25/22 16:00 04/25/22 12:00 Temperature Pulse Rate 93 93 77 Respiratory Rate 20 Blood Pressure 162/83 H Pulse Oximetry 99 Oxygen Delivery 04/25/22 16:00 04/25/22 18:12 04/25/22 19:41 Temperature 98.2 F 98.4 F Pulse Rate 96 93 Respiratory Rate 25 H 12 Blood Pressure 138/62 131/79 Pulse Oximetry 98 96 Oxygen Delivery Room Air 04/25/22 20:24 04/25/22 21:01 04/26/22 00:00 Temperature 98.1 F 97.1
[2022-04-26 12:15] LABS: Glucose Point of Care 253 mg/dl (65-105)
--- NOTE | 2022-04-26 14:19 | PCSTNOTE ---
Please refer to the Modified Barium Swallow Evaluation in the EMR.
[2022-04-26 14:24] VITALS: BP 122/69; PULSE 108; RESP 20; TEMP 36.8; O2SAT 96
[2022-04-26 16:13] LABS: Glucose Point of Care 197 mg/dl (65-105)
--- NOTE | 2022-04-26 17:08 | PC.NURSE ---
Attempted reinserting NG tube at 1645. Unable to complete procedure, patient became uncooperative. Per Dr. Beckett, started NS at 75 mL/hr to maintain hydration.
[2022-04-26] MEDS: SODIUM CHLORIDE 0.9% IV 1,000 ML 75 ML IV CONT (17:49)
[2022-04-26 19:37] VITALS: BP 125/74; PULSE 110; RESP 22; TEMP 35.8; O2SAT 94
[2022-04-26 20:26] VITALS: PULSE 113
[2022-04-26] MEDS: LORazepam INJ (*CRX) 2 MG/ML VIAL 0.5 MG IV PUSH (21:53)
[2022-04-26 22:11] VITALS: O2SAT 93
[2022-04-26] MEDS: LORazepam INJ (*CRX) 2 MG/ML VIAL 1 MG IV PUSH (23:34)
[2022-04-26 23:56] LABS: Glucose Point of Care 164 mg/dl (65-105)
[2022-04-27 04:36] VITALS: BP 128/75; PULSE 106; RESP 17; TEMP 36.2; O2SAT 98
[2022-04-27 05:43] LABS: Glucose Point of Care 159 mg/dl (65-105)
[2022-04-27 05:55] LABS: Hematocrit 45.2 % (42.0-52.0); Hemoglobin 14.3 g/dL (14.0-18.0); Mean Corpuscular HGB Conc 31.6 g/dl (32-36); Mean Corpuscular Volume 82.2 fl (80-100); Mean Platelet Volume 10.7 fl (7.4-10.4); Platelet Count Result 401 k/mm3 (150-375); Red Cell Distribution Width 15.1 % (11.5-14.5); White Blood Count 13.1 K/mm3 (4.5-10.0)
[2022-04-27 06:11] LABS: Anion Gap 11 mmol/L (8-16); Blood Urea Nitrogen 27 mg/dL (9-20); Calcium 9.5 mg/dL (8.4-10.2); Carbon Dioxide 21 mmol/L (22-30); Chloride 110 mmol/L (98-107); Estimated CRCL calculation 81 ml/min; Estimated Glomerular Filt Rate > 60; Glucose 158 mg/dL (65-110); Sodium 142 mmol/L (137-145)
[2022-04-27 08:10] LABS: Glucose Point of Care 192 mg/dl (65-105)
--- NOTE | 2022-04-27 08:50 | PM.IMPN ---
Progress Note: A&P Assessment and Plan (1) Hypernatremia: Code(s): E87.0 - Hyperosmolality and hypernatremia Status: Acute Assessment and Plan: Sodium level improved. Monitor -appreciate Nephrology evaluation and recommendations (2) DKA (diabetic ketoacidosis): Qualifiers: Diabetes mellitus complication detail: with coma Diabetes mellitus type: other specified (including RAFY) Qualified Code(s): E13.11 - Other specified diabetes mellitus with ketoacidosis with coma Code(s): E11.10 - Type 2 diabetes mellitus with ketoacidosis without coma Status: Acute Assessment and Plan: Improved -anion gap had closed, patient transition to long-acting insulin and sliding scale insulin. -currently on Lantus, Accu-Cheks and sliding scale insulin -continue to monitor serial BMPs -not taking p.o. as patient pulled NG tube. 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 One of 2 blood cultures positive likely contamination. No fever since antibiotics have been stopped. However leukocytosis slightly worsened. Does not appear to be septic at this time. Will repeat blood cultures and trend white blood cells (7) Encephalopathy: Code(s): G93.40 - Encephalopathy, unspecified Status: Acute Assessment and Plan: Improved (8) Dysphagia: Code(s): R13.10 - Dysphagia, unspecified Status: Acute Assessment and Plan: Secondary to acute illness. Speech therapy continues to work with the patient. Modified barium swallow performed and show silent aspiration. Patient will be strict NPO. Patient pulled NG tube and refused replacement. If agreeable will consider adding NG tube back. Mental status is slowly improving each day. Continue to work with speech therapy. Monitor progression. Plan -continue to monitor serial BMPs Subjective Date/time seen: 04/27/22 08:50 Patient pulled out NG tube. Unable to get tube feedings. Failed swallow study yesterday. Speech therapy continues to work with the patient. No acute events overnight Exam Narrative: General: Ill-appearing gentleman, in no acute distress HEENT: Moist oral mucosa, pupils equal and reactive Neck: No lymphadenopathy, supple Respiratory: clear to auscultation bilaterally with adequate air entry, no wheezing Cardiac: S1-S2 is normal, regular rate and rhythm Abdomen: Soft, nondistended, nontender, hypoactive bowel sounds Extremities: No edema, pedal pulses are palpable Neuro: Patient is more awake, alert, able to tell me that he is at the hospital and his date of . He does not know the year or the president. Patient does follows simple commands in a
[2022-04-27] MEDS: INSULIN GLARGINE (*BKC) 100 UNITS/ML 20 UNITS SUB-Q (09:38)
[2022-04-27] MEDS: LORazepam INJ (*CRX) 2 MG/ML VIAL 0.5 MG IV PUSH ×2 (09:38→20:35)
[2022-04-27] MEDS: HEPARIN SODIUM 5,000 UNITS/ML VIAL 5000 UNITS SUB-Q ×2 (09:38→20:35)
[2022-04-27] MEDS: SODIUM CHLORIDE 0.9% IV 1,000 ML 75 ML IV CONT ×2 (09:42→23:02)
[2022-04-27 11:42] LABS: Glucose Point of Care 190 mg/dl (65-105)
[2022-04-27 14:00] VITALS: BP 148/85; PULSE 111; RESP 18; TEMP 36.4; O2SAT 98
[2022-04-27 18:14] LABS: Glucose Point of Care 132 mg/dl (65-105)
[2022-04-27] MEDS: ONDANSETRON INJ 4 MG/2 ML VIAL IV PUSH (18:44)
[2022-04-27 19:24] VITALS: BP 119/82; PULSE 115; RESP 22; TEMP 36.3; O2SAT 100
[2022-04-28 00:56] LABS: Glucose Point of Care 106 mg/dl (65-105)
[2022-04-28] MEDS: HALOPERIDOL LACTATE 5 MG/ML VIAL IM (01:05)
[2022-04-28 04:13] VITALS: BP 132/84; PULSE 102; RESP 18; TEMP 36.5; O2SAT 100
[2022-04-28] MEDS: LORazepam INJ (*CRX) 2 MG/ML VIAL 0.5 MG IV PUSH ×2 (05:03→21:00)
[2022-04-28 05:46] LABS: Hematocrit 41.4 % (42.0-52.0); Hemoglobin 12.8 g/dL (14.0-18.0); Mean Corpuscular HGB Conc 30.9 g/dl (32-36); Mean Corpuscular Hemoglobin 25.9 pg (26-34); Mean Corpuscular Volume 83.6 fl (80-100); Mean Platelet Volume 10.6 fl (7.4-10.4); Platelet Count Result 450 k/mm3 (150-375); Red Blood Count 4.95 M/mm3 (4.6-6.20); Red Cell Distribution Width 14.7 % (11.5-14.5); White Blood Count 13.7 K/mm3 (4.5-10.0)
[2022-04-28 06:12] LABS: Glucose Point of Care 98 mg/dl (65-105)
[2022-04-28 08:19] LABS: Anion Gap 12 mmol/L (8-16); Blood Urea Nitrogen 25 mg/dL (9-20); Carbon Dioxide 11 mmol/L (22-30); Chloride 115 mmol/L (98-107); Estimated CRCL calculation 100 ml/min; Estimated Glomerular Filt Rate > 60; Glucose 120 mg/dL (65-110); Potassium 4.1 mmol/L (3.4-5.0); Sodium 138 mmol/L (137-145)
--- NOTE | 2022-04-28 08:23 | PCPTNOTE ---
Attempted to see patient for PT this A.M., however patient would not wake up to participate with therapy. Per sitting in room she thinks patient has been up all night.
[2022-04-28] MEDS: INSULIN GLARGINE (*BKC) 100 UNITS/ML 20 UNITS SUB-Q (08:25)
[2022-04-28] MEDS: HEPARIN SODIUM 5,000 UNITS/ML VIAL 5000 UNITS SUB-Q ×2 (08:25→21:00)
--- NOTE | 2022-04-28 09:02 | PCOTNOTE ---
Attempted to see patient this am, however patient sleeping upon entering and unable to arouse for functional OT at this time.
--- NOTE | 2022-04-28 10:20 | PCSTNOTE ---
The patient treatment was not able to be completed on 04/28 due to being un-arousable on two separate attempts. Will plan to continue treatment per plan of care.
--- NOTE | 2022-04-28 11:43 | PM.IMPN ---
Progress Note: A&P Assessment and Plan (1) Hypernatremia: Code(s): E87.0 - Hyperosmolality and hypernatremia Status: Acute Assessment and Plan: Sodium level improved. Monitor -appreciate Nephrology evaluation and recommendations (2) DKA (diabetic ketoacidosis): Qualifiers: Diabetes mellitus complication detail: with coma Diabetes mellitus type: other specified (including RAFY) Qualified Code(s): E13.11 - Other specified diabetes mellitus with ketoacidosis with coma Code(s): E11.10 - Type 2 diabetes mellitus with ketoacidosis without coma Status: Acute Assessment and Plan: Improved -anion gap had closed, patient transition to long-acting insulin and sliding scale insulin. -currently on Lantus, Accu-Cheks and sliding scale insulin -continue to monitor serial BMPs -not taking p.o. as patient pulled NG tube. (3) Acute renal failure: Qualifiers: Acute renal failure type: unspecified Qualified Code(s): N17.9 - Acute kidney failure, unspecified Code(s): N17.9 - Acute kidney failure, unspecified Status: Acute Assessment and Plan: RESOLVED (4) HTN (hypertension): Qualifiers: Hypertension type: essential hypertension Qualified Code(s): I10 - Essential (primary) hypertension Code(s): I10 - Essential (primary) hypertension Status: Acute Assessment and Plan: Monitor blood pressure - (5) Diabetes mellitus: Qualifiers: Diabetes mellitus type: type 2 Diabetes mellitus residential insulin use: without predatory animal exterminator use Diabetes mellitus complication status: without complication Qualified Code(s): E11.9 - Type 2 diabetes mellitus without complications Code(s): E11.9 - Type 2 diabetes mellitus without complications Status: Acute Assessment and Plan: -continue sliding scale insulin and Lantus as above (6) Leukocytosis (leucocytosis): Qualifiers: Leukocytosis type: unspecified Qualified Code(s): D72.829 - Elevated white blood cell count, unspecified Code(s): D72.829 - Elevated white blood cell count, unspecified Status: Acute Assessment and Plan: Concern for infection is low. One of 2 blood cultures positive likely contamination. No fever since antibiotics have been stopped. However leukocytosis slightly worsened. Does not appear to be septic at this time. Will repeat blood cultures and trend white blood cells (7) Encephalopathy: Code(s): G93.40 - Encephalopathy, unspecified Status: Acute Assessment and Plan: Improved (8) Dysphagia: Code(s): R13.10 - Dysphagia, unspecified Status: Acute Assessment and Plan: Secondary to acute illness. Speech therapy continues to work with the patient. Modified barium swallow performed and show silent aspiration. Patient will be strict NPO. Patient pulled NG tube and refused replacement. If agreeable will consider adding NG tube back. Mental status is slowly improving each day. Continue to work with speech therapy. Monitor progression. Plan -continue to monitor serial BMPs Additional Plan DVT prophylaxis: Heparin SQ Code status: Full code Critical care time spent: 32 minutes This dictation may have been done utilizing a voice recognition system. Attempts have been made to correct errors. However, there may be uncorrected grammatical, spelling, and recognition errors present. Due to a high probability of clinically significant, life threatening deterioration, the patient required my highest level of preparedness to intervene emergently and I personally spent this critical care time directly and personally managing the patient. This critical care time included obtaining a history; examining the patient; pulse oximetry; ordering and review of studies; arranging urgent treatment with development of a management plan; evaluation of patient's response to treatment; frequent re
[2022-04-28] MEDS: UMECLIDINIUM BROMIDE 62.5 MCG ELLIPTA 1 PUFF INHALATION (12:09)
--- NOTE | 2022-04-28 12:24 | PCNFU ---
Nutrition Follow-Up Complete: Inadequate Oral Intake as related to DKA as evidenced by poor po intake. Goal: Adequate Intake of at least 75% of meals/supplements Patient has limited progress towards goal. We will continue current goal. Pt current nutrition is NPO. Nutrition recommendations: Glucerna 1.2 at 70 ml/hr. Last recorded weight is 78.7 kg, up from 63.2 kg on admit. Bowel Motility:+BM reported 04/28 Labs Reviewed:Glu 120, BUN 25, Hct 41.4,Hgb 12.8 Meds Noted:Ativan, NS, Lantus, Zofran, NovoLog, Lopressor Skin: WNL Additional Notes: Patient pulled out NGT tube on 04/26. Tube feeding of Glucerna 1.2 on hold at this time. Speech Therapy continues providing treatment. Will monitor every Thursday and Thursday.
[2022-04-28 12:28] LABS: Glucose Point of Care 102 mg/dl (65-105)
[2022-04-28] MEDS: SODIUM CHLORIDE 0.9% IV 1,000 ML 75 ML IV CONT (12:50)
[2022-04-28 14:40] VITALS: BP 157/79; PULSE 96; RESP 16; TEMP 35.8; O2SAT 99
[2022-04-28] MEDS: hydrALAZINE HCL 20 MG/ML VIAL 10 MG IV PUSH (14:54)
[2022-04-28 15:49] VITALS: BP 150/79
[2022-04-28 18:28] LABS: Glucose Point of Care 112 mg/dl (65-105)
[2022-04-28 19:30] VITALS: BP 146/87; PULSE 110; RESP 18; TEMP 36.6; O2SAT 100
[2022-04-28 20:41] VITALS: O2SAT 94
[2022-04-28 23:55] LABS: Glucose Point of Care 85 mg/dl (65-105)
[2022-04-29] MEDS: SODIUM CHLORIDE 0.9% IV 1,000 ML 75 ML IV CONT (00:49)
[2022-04-29 05:23] VITALS: BP 168/88; PULSE 102; RESP 20; TEMP 36.4; O2SAT 98
[2022-04-29] MEDS: DEXTROSE 50% 25 GM/50 ML SYRINGE IV PUSH (05:24)
--- NOTE | 2022-04-29 05:40 | PCNEURO ---
0525 PATIENT GLUCOSE PER FINGERSTICK WAS 58. AWAKE AND ALERT, MOVING IN BED. HYPOGLYCEMIA PROTOCOL INITIATED AND 1/2 AMP D50 GIVEN PER PROTOCOL.
[2022-04-29 06:17] LABS: Glucose Point of Care 106 mg/dl (65-105)
[2022-04-29 06:17] LABS: Glucose Point of Care 58 mg/dl (65-105)
[2022-04-29 08:09] VITALS: O2SAT 93
[2022-04-29] MEDS: UMECLIDINIUM BROMIDE 62.5 MCG ELLIPTA 1 PUFF INHALATION (08:09)
--- NOTE | 2022-04-29 08:46 | PCPTNOTE ---
Patient refused treatment this session due to feeling tired. RN states that the pt still hasn't been able to eat due to a test he is having later today. Will continue per PT plan of care.
[2022-04-29] MEDS: HEPARIN SODIUM 5,000 UNITS/ML VIAL 5000 UNITS SUB-Q ×2 (10:44→19:54)
--- NOTE | 2022-04-29 10:59 | PCOTNOTE ---
Attempted to see patient this date. Upon entering patient up in chair. MORTUARY OPERATIONS MANAGER (sitter) present reported patient already completed ADLs this am. Will continue plan of care tomorrow.
--- NOTE | 2022-04-29 11:02 | PM.IMPN ---
Progress Note: A&P Assessment and Plan (1) Hypernatremia: Code(s): E87.0 - Hyperosmolality and hypernatremia Status: Acute Assessment and Plan: Sodium level improved. Monitor -appreciate Nephrology evaluation and recommendations - (2) DKA (diabetic ketoacidosis): Qualifiers: Diabetes mellitus complication detail: with coma Diabetes mellitus type: other specified (including RAFY) Qualified Code(s): E13.11 - Other specified diabetes mellitus with ketoacidosis with coma Code(s): E11.10 - Type 2 diabetes mellitus with ketoacidosis without coma Status: Acute Assessment and Plan: Improved -anion gap had closed, patient transition to long-acting insulin and sliding scale insulin. -currently on Lantus, Accu-Cheks and sliding scale insulin -continue to monitor serial BMPs blood sugar (3) Acute renal failure: Qualifiers: Acute renal failure type: unspecified Qualified Code(s): N17.9 - Acute kidney failure, unspecified Code(s): N17.9 - Acute kidney failure, unspecified Status: Acute Assessment and Plan: RESOLVED (4) HTN (hypertension): Qualifiers: Hypertension type: essential hypertension Qualified Code(s): I10 - Essential (primary) hypertension Code(s): I10 - Essential (primary) hypertension Status: Acute Assessment and Plan: Monitor blood pressure - (5) Diabetes mellitus: Qualifiers: Diabetes mellitus type: type 2 Diabetes mellitus superintendent marine oil terminal insulin use: without group home use Diabetes mellitus complication status: without complication Qualified Code(s): E11.9 - Type 2 diabetes mellitus without complications Code(s): E11.9 - Type 2 diabetes mellitus without complications Status: Acute Assessment and Plan: -continue sliding scale insulin and Lantus as above (6) Leukocytosis (leucocytosis): Qualifiers: Leukocytosis type: unspecified Qualified Code(s): D72.829 - Elevated white blood cell count, unspecified Code(s): D72.829 - Elevated white blood cell count, unspecified Status: Acute Assessment and Plan: Concern for infection is low. One of 2 blood cultures positive likely contamination. No fever since antibiotics have been stopped. However leukocytosis slightly worsened. Does not appear to be septic at this time. No fevers. Repeat cultures negative today. (7) Encephalopathy: Code(s): G93.40 - Encephalopathy, unspecified Status: Acute Assessment and Plan: Improved (8) Silent aspiration: Code(s): T17.900A - Unspecified foreign body in respiratory tract, part unspecified causing asphyxiation, initial encounter Status: Acute Assessment and Plan: -secondary to acute illness. -not taking p.o. as patient pulled NG tube on 04/27/22, patient was getting IV fluids however he pulled his IV today -having ongoing silent aspiration per speech therapy evaluation. -modified barium swallow ordered again today, will try to advance diet and unable to advance diet considerations for PEG will need to be entertained. -if patient fails modified barium swallowing can eat will need to put an IV consider IV fluids versus TPN as well in the interim until PEG can be discussed -I am hopeful with increase mental status and functioning he can start taking on his own if he passed the barium swallow Subjective Date/time seen: 04/29/22 11:02 Review of Systems Review of Systems: All systems reviewed & are unremarkable except as noted in HPI and below Exam Narrative: General: Ill-appearing gentleman, in no acute distress HEENT: Moist oral mucosa, pupils equal and reactive Neck: No lymphadenopathy, supple Respiratory: clear to auscultation bilaterally with adequate air entry, no wheezing Cardiac: S1-S2 is normal, regular rate and rhythm Abdomen: Soft, nondistended, nontender, hypoactive bowel sounds Extremities: No zafar
--- NOTE | 2022-04-29 11:05 | PC.NURSE ---
Patients father observed to give patient sips of coffee at 1045. Family member educated about the importance of keeping patient NPO until further evaluation by
[2022-04-29 11:53] LABS: Glucose Point of Care 122 mg/dl (65-105)
[2022-04-29 13:50] VITALS: BP 151/74; PULSE 91; RESP 18; TEMP 36.7; O2SAT 98
--- NOTE | 2022-04-29 14:06 | PCNFU ---
Nutrition Follow-Up Complete: Inadequate Oral Intake as related to DKA as evidenced by poor po intake. goal: Adequate Intake of at least 75% of meals/supplements Patient is not meeting goal. We will continue current goal. Pt current nutrition is NPO. Last recorded weight is 80 kg, up from 63.2 kg on admit. Bowel Motility:+BM reported /6 Labs Reviewed:No new labs to report. Meds Noted:Ativan, NS, Lantus, Zofran, NovoLog, Lopressor, Heparin Skin: WNL Additional Notes: Patient remains NPO x 3 days. Plans for MBS today. If non oral feedings are recommended. Tube feeding recommendations: Glucerna 1.2 at 20 ml/hr advance by 10 ml q 4 hours to goal rate of 75 ml/hr, providing 1980 kcals/99 gms protein, 1328 ml water. Free water flush 30 ml q 4 hours. Will monitor every Thursday and Thursday.
[2022-04-29 14:09] VITALS: BMI 22.6
--- NOTE | 2022-04-29 17:33 | PCSTNOTE ---
Please refer to the Modified Barium Swallow Evaluation in the EMR.
[2022-04-29 18:57] LABS: Glucose Point of Care 183 mg/dl (65-105)
[2022-04-29] MEDS: QUEtiapine FUMARATE 25 MG TABLET 50 MG PO (19:52)
[2022-04-29] MEDS: GABAPENTIN 300 MG CAPSULE 900 MG PO (19:52)
[2022-04-29] MEDS: ACETAMINOPHEN 325 MG TABLET 650 MG PO (19:53)
[2022-04-29] MEDS: ALPRAZolam (*CRX) 0.5 MG TABLET PO (19:53)
[2022-04-29] MEDS: METOPROLOL TARTRATE 12.5 MG TABLET PO (19:55)
[2022-04-29 20:00] VITALS: PULSE 91; RESP 18; O2SAT 98
[2022-04-29 21:11] VITALS: O2SAT 98
[2022-04-29 22:00] VITALS: BP 138/69; PULSE 99; RESP 16; TEMP 36.7; O2SAT 99
[2022-04-30] VITALS (8 sets, daily range): BP systolic 123–132; BP diastolic 72–76; PULSE 93–102; RESP 12–20; TEMP 36.1–36.7; O2SAT 97–100
[2022-04-30 05:33] LABS: Hematocrit 37.2 % (42.0-52.0); Hemoglobin 11.8 g/dL (14.0-18.0); Mean Corpuscular HGB Conc 31.7 g/dl (32-36); Mean Corpuscular Hemoglobin 26.1 pg (26-34); Mean Corpuscular Volume 82.3 fl (80-100); Mean Platelet Volume 9.9 fl (7.4-10.4); Platelet Count Result 446 k/mm3 (150-375); Red Blood Count 4.52 M/mm3 (4.6-6.20); Red Cell Distribution Width 15.1 % (11.5-14.5); White Blood Count 9.9 K/mm3 (4.5-10.0)
[2022-04-30 05:47] LABS: Anion Gap 11 mmol/L (8-16); Blood Urea Nitrogen 13 mg/dL (9-20); Calcium 8.3 mg/dL (8.4-10.2); Carbon Dioxide 17 mmol/L (22-30); Chloride 106 mmol/L (98-107); Estimated CRCL calculation 89 ml/min; Estimated Glomerular Filt Rate > 60; Glucose 160 mg/dL (65-110); Potassium 3.6 mmol/L (3.4-5.0); Sodium 134 mmol/L (137-145)
[2022-04-30] MEDS: GABAPENTIN 300 MG CAPSULE 900 MG PO ×3 (05:51→20:27)
[2022-04-30 07:43] LABS: Glucose Point of Care 211 mg/dl (65-105)
--- NOTE | 2022-04-30 07:43 | PM.IMPN ---
Progress Note: A&P Assessment and Plan (1) Hypernatremia: Code(s): E87.0 - Hyperosmolality and hypernatremia Status: Acute Assessment and Plan: Now somewhat hyponatremic, appreciate nephrology recs (2) DKA (diabetic ketoacidosis): Qualifiers: Diabetes mellitus complication detail: with coma Diabetes mellitus type: other specified (including RAFY) Qualified Code(s): E13.11 - Other specified diabetes mellitus with ketoacidosis with coma Code(s): E11.10 - Type 2 diabetes mellitus with ketoacidosis without coma Status: Acute Assessment and Plan: Resolved, increase lantus to 25 units daily (3) Acute renal failure: Qualifiers: Acute renal failure type: unspecified Qualified Code(s): N17.9 - Acute kidney failure, unspecified Code(s): N17.9 - Acute kidney failure, unspecified Status: Acute Assessment and Plan: resolved (4) HTN (hypertension): Qualifiers: Hypertension type: essential hypertension Qualified Code(s): I10 - Essential (primary) hypertension Code(s): I10 - Essential (primary) hypertension Status: Acute Assessment and Plan: Monitor blood pressure - (5) Diabetes mellitus: Qualifiers: Diabetes mellitus complication status: without complication Diabetes mellitus loan operations manager insulin use: without fdc use Diabetes mellitus type: type 2 Qualified Code(s): E11.9 - Type 2 diabetes mellitus without complications Code(s): E11.9 - Type 2 diabetes mellitus without complications Status: Acute Assessment and Plan: accuchecks, SSI, lantus 25 u (6) Leukocytosis (leucocytosis): Qualifiers: Leukocytosis type: unspecified Qualified Code(s): D72.829 - Elevated white blood cell count, unspecified Code(s): D72.829 - Elevated white blood cell count, unspecified Status: Acute Assessment and Plan: leukocytosis resolved today, no signs of infection (7) Encephalopathy: Code(s): G93.40 - Encephalopathy, unspecified Status: Acute Assessment and Plan: stable, unsure of etiology??? (8) Silent aspiration: Code(s): T17.900A - Unspecified foreign body in respiratory tract, part unspecified causing asphyxiation, initial encounter Status: Acute Assessment and Plan: MBS showed some impairment, level 2 and 4 diets started today per recs from , continue to monitor nutrition status Subjective Date/time seen: 04/30/22 07:43 Patient asleep, not cooperative with questions or exam. No events noted overnight. Nursing staff stated patient previously had a full-time job and family states he was alert and oriented x4 prior to admission. Review of Systems Review of Systems: All systems reviewed & are unremarkable except as noted in HPI and below ROS unobtainable: Yes unobtainable due to mental status Exam Narrative: General: Ill-appearing gentleman, in no acute distress HEENT: Moist oral mucosa, pupils equal and reactive Neck: No lymphadenopathy, supple Respiratory: clear to auscultation bilaterally with adequate air entry, no wheezing Cardiac: S1-S2 is normal, regular rate and rhythm Abdomen: Soft, nondistended, nontender, hypoactive bowel sounds Extremities: No edema, pedal pulses are palpable Skin: Warm and dry Objective Data Vital Signs Vital Signs: Vital Signs - 24 hr 04/29/22 08:09 04/29/22 08:55 04/29/22 13:50 Temperature 98.1 F Pulse Rate 91 Respiratory Rate 18 Blood Pressure 151/74 H Pulse Oximetry 93 98 Oxygen Delivery Room Air Room Air 04/29/22 20:00 04/29/22 22:00 04/29/22 21:11 Temperature 98.1 F Pulse Rate 91 99 Respiratory Rate 18 16 Blood Pressure 138/69 Pulse Oximetry 98 99 98 Oxygen Delivery Room Air Room Air 04/30/22 05:55 04/30/22 06:00 Temperature 97.6 F 97.6 F Pulse Rate 95 95 Respiratory Rate 20 20 Blood Pressure 132/72 132/72 Pulse O
[2022-04-30] MEDS: UMECLIDINIUM BROMIDE 62.5 MCG ELLIPTA 1 PUFF INHALATION (07:47)
[2022-04-30] MEDS: INSULIN ASPART (*BKC) 100 UNITS/ML SUB-Q ×2 (07:50→17:35)
[2022-04-30] MEDS: HEPARIN SODIUM 5,000 UNITS/ML VIAL 5000 UNITS SUB-Q ×2 (09:56→20:25)
[2022-04-30 11:33] LABS: Glucose Point of Care 161 mg/dl (65-105)
--- NOTE | 2022-04-30 11:33 | PCPTNOTE ---
Attempted to see pt this AM however the pt was unable to arouse for treatment. Will continue per PT plan of care.
--- NOTE | 2022-04-30 11:39 | PC.NURSE ---
pt has been resting in bed this am, calm no attempts to ambulate without assistance, no behaviors observed sitter removed from room at 0930 this Am.
--- NOTE | 2022-04-30 11:42 | PCSTNOTE ---
The patient treatment was not able to be completed on 04/30 due to not being able to arouse for therapy. Will plan to continue treatment per plan of care.
[2022-04-30] MEDS: polyethylene glycoL 3350 17 GM POWD.PACK PO (11:48)
[2022-04-30] MEDS: FINASTERIDE 5 MG TABLET PO (11:49)
[2022-04-30] MEDS: SIMVASTATIN 20 MG TABLET PO (11:49)
[2022-04-30] MEDS: METOPROLOL TARTRATE 12.5 MG TABLET PO ×2 (11:49→20:27)
[2022-04-30] MEDS: TAMSULOSIN HCL 0.4 MG CAPSULE PO (11:50)
[2022-04-30] MEDS: ACETAMINOPHEN 325 MG TABLET 650 MG PO ×2 (12:58→18:56)
[2022-04-30] MEDS: CALCIUM CARBONATE (TUMS) 500 MG (200 MG ELEMENTAL) PO (15:29)
[2022-04-30 16:33] LABS: Glucose Point of Care 226 mg/dl (65-105)
[2022-04-30] MEDS: QUEtiapine FUMARATE 25 MG TABLET 50 MG PO (20:27)
[2022-04-30] MEDS: INSULIN GLARGINE (*BKC) 100 UNITS/ML 25 UNITS SUB-Q (20:28)
[2022-04-30 21:05] LABS: Glucose Point of Care 257 mg/dl (65-105)
[2022-04-30] MEDS: ALPRAZolam (*CRX) 0.5 MG TABLET PO (22:42)
[2022-05-01 06:00] VITALS: BP 125/59; PULSE 98; RESP 21; TEMP 36.3; O2SAT 100
[2022-05-01] MEDS: GABAPENTIN 300 MG CAPSULE 900 MG PO ×3 (06:34→19:42)
[2022-05-01 07:47] LABS: Glucose Point of Care 198 mg/dl (65-105)
--- NOTE | 2022-05-01 07:59 | PM.IMPN ---
Progress Note: A&P Assessment and Plan (1) DKA (diabetic ketoacidosis): Qualifiers: Diabetes mellitus complication detail: with coma Diabetes mellitus type: other specified (including RAFY) Qualified Code(s): E13.11 - Other specified diabetes mellitus with ketoacidosis with coma Code(s): E11.10 - Type 2 diabetes mellitus with ketoacidosis without coma Status: Acute Assessment and Plan: Resolved, increased lantus to 25 units yesterday, FBG was 161, will increase lantus to 30 units and monitor, may need to add mealtime coverage, will consult insurance checker (2) Acute renal failure: Qualifiers: Acute renal failure type: unspecified Qualified Code(s): N17.9 - Acute kidney failure, unspecified Code(s): N17.9 - Acute kidney failure, unspecified Status: Acute Assessment and Plan: resolved (3) HTN (hypertension): Qualifiers: Hypertension type: essential hypertension Qualified Code(s): I10 - Essential (primary) hypertension Code(s): I10 - Essential (primary) hypertension Status: Acute Assessment and Plan: Monitor blood pressure (4) Diabetes mellitus: Qualifiers: Diabetes mellitus complication status: without complication Diabetes mellitus local company intermodal truck driver insulin use: without local company intermodal truck driver use Diabetes mellitus type: type 2 Qualified Code(s): E11.9 - Type 2 diabetes mellitus without complications Code(s): E11.9 - Type 2 diabetes mellitus without complications Status: Acute Assessment and Plan: accuchecks, SSI, lantus 30 u (5) Leukocytosis (leucocytosis): Qualifiers: Leukocytosis type: unspecified Qualified Code(s): D72.829 - Elevated white blood cell count, unspecified Code(s): D72.829 - Elevated white blood cell count, unspecified Status: Acute Assessment and Plan: leukocytosis resolved today, no signs of infection (6) Encephalopathy: Code(s): G93.40 - Encephalopathy, unspecified Status: Acute Assessment and Plan: stable, unsure of etiology??? (7) Silent aspiration: Code(s): T17.900A - Unspecified foreign body in respiratory tract, part unspecified causing asphyxiation, initial encounter Status: Acute Assessment and Plan: MBS showed some impairment, level 2 and 4 diets started today per recs from , continue to monitor nutrition status (8) Hyponatremia: Code(s): E87.1 - Hypo-osmolality and hyponatremia Status: Acute Subjective Date/time seen: 05/01/22 07:59 Review of Systems Review of Systems: All systems reviewed & are unremarkable except as noted in HPI and below Exam Narrative: General: Ill-appearing gentleman, in no acute distress HEENT: Moist oral mucosa, pupils equal and reactive Neck: No lymphadenopathy, supple Respiratory: clear to auscultation bilaterally with adequate air entry, no wheezing Cardiac: S1-S2 is normal, regular rate and rhythm Abdomen: Soft, nondistended, nontender, hypoactive bowel sounds Extremities: No edema, pedal pulses are palpable Skin: Warm and dry Objective Data Vital Signs Vital Signs: Vital Signs - 24 hr 04/30/22 08:00 04/30/22 11:49 04/30/22 14:00 Temperature 98.0 F Pulse Rate 93 100 Respiratory Rate 14 Blood Pressure 128/74 Pulse Oximetry 100 Oxygen Delivery Room Air 04/30/22 20:27 04/30/22 20:00 04/30/22 22:00 Temperature 97.0 F L Pulse Rate 102 H 102 H 102 H Respiratory Rate 14 18 Blood Pressure 123/76 Pulse Oximetry 100 97 Oxygen Delivery Room Air 05/01/22 06:00 Temperature 97.4 F L Pulse Rate 98 Respiratory Rate 21 H Blood Pressure 125/59 L Pulse Oximetry 100 Oxygen Delivery Intake/Output Intake/Output: Intake & Output 04/28/22 04/29/22 04/30/22 05/01/22 23:59 23:59 23:59 23:59 Intake Total 1000 3120 1430 240 Output Total 1400 1050 1350 1050 Balance -400 2070 80 -810 Meds/Results Medica
[2022-05-01] MEDS: FINASTERIDE 5 MG TABLET PO (08:33)
[2022-05-01] MEDS: SIMVASTATIN 20 MG TABLET PO (08:33)
[2022-05-01] MEDS: TAMSULOSIN HCL 0.4 MG CAPSULE PO (08:33)
[2022-05-01 08:34] VITALS: PULSE 115
[2022-05-01] MEDS: METOPROLOL TARTRATE 12.5 MG TABLET PO ×2 (08:34→19:41)
[2022-05-01] MEDS: polyethylene glycoL 3350 17 GM POWD.PACK PO (08:35)
[2022-05-01] MEDS: HEPARIN SODIUM 5,000 UNITS/ML VIAL 5000 UNITS SUB-Q ×2 (08:38→19:40)
--- NOTE | 2022-05-01 10:54 | PCNFU ---
Nutrition Follow-Up Complete: Inadequate Oral Intake as related to DKA as evidenced by poor po intake. Goal: Adequate Intake of at least 75% of meals/supplements Patient is progressing towards goal. We will continue current goal. Pt current nutrition is Pureed, Level 4 with Mildly Thick liquids, Level 4. Last recorded weight is 78.8 kg, up from 63.2 kg on admit. Bowel Motility:+BM reported 05/01 Labs Reviewed:No new labs to report Meds Noted:Ativan, NS, Lantus, Zofran, NovoLog, Lopressor, Heparin Skin: WNL Additional Notes: Patient seen today for nutrition followup. Oral Intake has been fair. Spoke with patient today about diet supplements. Patient would like Glucerna shakes. orders for Glucerna shakes BID providing an additional 240 kcals and 10 gms protein. Agree with diet orders. Monitoring: Will monitor every 5 days.
[2022-05-01 11:27] LABS: Glucose Point of Care 337 mg/dl (65-105)
[2022-05-01] MEDS: INSULIN ASPART (*BKC) 100 UNITS/ML SUB-Q (11:47)
[2022-05-01 13:33] LABS: Appearance Urine Slightly Cloudy (Clear); Bilirubin Urine Negative (Negative); Blood Urine Negative (Negative); Color Urine Amber (Yellow); Glucose Urine UA 2+ mg/dL (Negative); Ketones Urine Negative (Negative); Leukocyte Esterase Ur Negative LEU/UL (NEGATIVE); Nitrate Urine Negative (Negative); Protein Urine Negative (Negative); pH Urine 5.5 (5.0-9.0)
[2022-05-01 13:44] LABS: Bacteria Urine Trace /hpf; Mucus Urine Rare /lpf; RBC Urine 0-2 /hpf (0-2); WBC Urine 0-3 /hpf (0-3)
[2022-05-01 13:45] LABS: Add Urine Microscopic? YES
[2022-05-01 14:00] VITALS: BP 110/63; PULSE 99; RESP 18; TEMP 37.4; O2SAT 98
[2022-05-01] MEDS: ACETAMINOPHEN 325 MG TABLET 650 MG PO (14:47)
[2022-05-01 16:36] LABS: Glucose Point of Care 193 mg/dl (65-105)
[2022-05-01 18:11] LABS: Anion Gap 8 mmol/L (8-16); Blood Urea Nitrogen 12 mg/dL (9-20); Calcium 8.8 mg/dL (8.4-10.2); Carbon Dioxide 23 mmol/L (22-30); Chloride 99 mmol/L (98-107); Estimated CRCL calculation 100 ml/min; Estimated Glomerular Filt Rate > 60; Glucose 244 mg/dL (65-110); Potassium 3.6 mmol/L (3.4-5.0); Sodium 130 mmol/L (137-145)
[2022-05-01 19:41] VITALS: PULSE 78
[2022-05-01] MEDS: CALCIUM CARBONATE (TUMS) 500 MG (200 MG ELEMENTAL) PO (19:41)
[2022-05-01] MEDS: ALPRAZolam (*CRX) 0.5 MG TABLET PO (19:41)
[2022-05-01] MEDS: QUEtiapine FUMARATE 25 MG TABLET 50 MG PO (19:42)
[2022-05-01] MEDS: INSULIN GLARGINE (*BKC) 100 UNITS/ML 30 UNITS SUB-Q (19:57)
[2022-05-01 21:10] LABS: Glucose Point of Care 214 mg/dl (65-105)
[2022-05-01 22:00] VITALS: BP 134/71; PULSE 93; RESP 18; TEMP 36.2; O2SAT 97
[2022-05-02] MEDS: ACETAMINOPHEN 325 MG TABLET 650 MG PO (03:30)
[2022-05-02] MEDS: GABAPENTIN 300 MG CAPSULE 900 MG PO (05:49)
[2022-05-02 06:00] VITALS: BP 125/69; PULSE 95; RESP 18; TEMP 36.4; O2SAT 96
[2022-05-02 07:47] VITALS: PULSE 90
[2022-05-02] MEDS: METOPROLOL TARTRATE 12.5 MG TABLET PO (07:47)
[2022-05-02] MEDS: FINASTERIDE 5 MG TABLET PO (07:48)
[2022-05-02] MEDS: TAMSULOSIN HCL 0.4 MG CAPSULE PO (07:48)
[2022-05-02] MEDS: SIMVASTATIN 20 MG TABLET PO (07:48)
[2022-05-02] MEDS: ALPRAZolam (*CRX) 0.5 MG TABLET PO (07:49)
[2022-05-02] MEDS: HEPARIN SODIUM 5,000 UNITS/ML VIAL 5000 UNITS SUB-Q (07:51)
--- NOTE | 2022-05-02 07:51 | PC.NURSE ---
meds administered with breakfast due to fluid restriction
[2022-05-02 07:57] LABS: Glucose Point of Care 121 mg/dl (65-105)
[2022-05-02 08:07] LABS: Basophils Absolute Auto 0.1 K/mm3 (0.0-0.1); Basophils Percent Auto 0.8 % (0.2-1.2); Eosinophils Absolute Auto 0.1 K/mm3 (0-0.3); Eosinophils Percent Auto 0.5 % (0-4.4); Hematocrit 40.7 % (42.0-52.0); Hemoglobin 12.5 g/dL (14.0-18.0); Immature Granulocyte Absolute 0.22 K/mm3 (0.00-0.031); Immature Granulocyte Percent A 1.5 % (0-0.5); Lymphocytes Absolute Auto 2.97 K/mm3 (0.9-3.2); Lymphocytes Percent Auto 20.2 % (18.3-44.2); Mean Corpuscular HGB Conc 30.7 g/dl (32-36); Mean Corpuscular Hemoglobin 25.9 pg (26-34); Mean Corpuscular Volume 84.3 fl (80-100); Mean Platelet Volume 10.3 fl (7.4-10.4); Monocytes Percent Auto 6.5 % (2.6-8.5); Neutrophils Absolute Auto 10.4 K/mm3 (1.3-6.7); Neutrophils Percent Auto 70.5 % (45.5-73.1); Platelet Count Result 459 k/mm3 (150-375); Red Blood Count 4.83 M/mm3 (4.6-6.20); Red Cell Distribution Width 15.8 % (11.5-14.5); White Blood Count 14.7 K/mm3 (4.5-10.0)
[2022-05-02 08:18] LABS: Alanine Aminotransferase 52 U/L (6-50); Albumin Level 3.7 g/dL (3.5-5.1); Alkaline Phosphatase 100 U/L (38-126); Anion Gap 7 mmol/L (8-16); Aspartate Amino Transferase 26 U/L (17-59); Bilirubin,Total 0.2 mg/dL (0.2-1.3); Blood Urea Nitrogen 10 mg/dL (9-20); Carbon Dioxide 25 mmol/L (22-30); Chloride 103 mmol/L (98-107); Estimated CRCL calculation 100 ml/min; Estimated Glomerular Filt Rate > 60; Glucose 123 mg/dL (65-110); Potassium 3.6 mmol/L (3.4-5.0); Sodium 135 mmol/L (137-145)
[2022-05-02] MEDS: UMECLIDINIUM BROMIDE 62.5 MCG ELLIPTA 1 PUFF INHALATION (09:14)
[2022-05-02 09:17] VITALS: O2SAT 91
--- NOTE | 2022-05-02 09:25 | PCPTNOTE ---
Attempted therapy at this time however unable to complete due to patient being out of room for test/ exam.
[2022-05-02 09:58] LABS: CRP 0.8 mg/dL (<1.0)
--- NOTE | 2022-05-02 10:50 | PM.PNNEP ---
Progress Note: A&P Assessment and Plan (1) Acute renal failure: Qualifiers: Acute renal failure type: unspecified Qualified Code(s): N17.9 - Acute kidney failure, unspecified Code(s): N17.9 - Acute kidney failure, unspecified Status: Acute Assessment and Plan: resolved (2) Hypernatremia: Code(s): E87.0 - Hyperosmolality and hypernatremia Status: Acute Assessment and Plan: resolved (3) DKA (diabetic ketoacidosis): Qualifiers: Diabetes mellitus complication detail: with coma Diabetes mellitus type: other specified (including RAFY) Qualified Code(s): E13.11 - Other specified diabetes mellitus with ketoacidosis with coma Code(s): E11.10 - Type 2 diabetes mellitus with ketoacidosis without coma Status: Acute Assessment and Plan: sugars doing better. However yesterday sugar was 373. (4) HTN (hypertension): Qualifiers: Hypertension type: essential hypertension Qualified Code(s): I10 - Essential (primary) hypertension Code(s): I10 - Essential (primary) hypertension Status: Acute Assessment and Plan: reasonable control follow trend of hemodynamics (5) Encephalopathy: Code(s): G93.40 - Encephalopathy, unspecified Status: Acute Assessment and Plan: due to multiple issues - DKA, hyperglycemia, hypernatremia, uremia CT of brain noted follow mentation Not much else to add - will continue to follow from a distance. (6) Hyponatremia: Code(s): E87.1 - Hypo-osmolality and hyponatremia Status: Acute Assessment and Plan: The patient has hyponatremia. Sodium level had been fine before Thursday when the sodium dropped to 134 and then 130 yesterday. Today it is back up to 135. He is drinking thickened liquids so I not think he is over during the water intake. He is not on any medications that would do this. His chest x-ray is okay. Notably at least 1 Accu-Chek was over 300 yesterday. This might have reduce the sodium some. At this point the sodium level is improving so we will just recheck a level tomorrow and see how it looks. Subjective Date/time seen: 05/02/22 10:50 Interval history: Dr Cifuentes signed off last weekend as ANA MARIA and hypernatremia resolved. Now requested to see again for low sodium. pt is feeling okay he hates the thickened liquids. not drinking liquids other that what staff is giving him Exam Narrative: General: WD/WN male in NAD Heart: normal S1 and S2; no rub Lungs: clear to auscultation Abdomen: soft, nontender, nondistended, positive bowel sounds Extremities: no cyanosis or clubbing; no edema Skin: No rash Objective Data Vital Signs Vital Signs: Vital Signs - 24 hr 05/01/22 14:00 05/01/22 19:41 05/01/22 20:00 Temperature 37.4 C Pulse Rate 99 78 Respiratory Rate 18 Blood Pressure 110/63 Pulse Oximetry 98 Oxygen Delivery Room Air 05/01/22 22:00 05/02/22 06:00 05/02/22 07:47 Temperature 36.2 C L 36.4 C Pulse Rate 93 95 90 Respiratory Rate 18 18 Blood Pressure 134/71 125/69 Pulse Oximetry 97 96 Oxygen Delivery 05/02/22 09:17 05/02/22 07:45 Temperature Pulse Rate Respiratory Rate Blood Pressure Pulse Oximetry 91 Oxygen Delivery Room Air Room Air Intake/Output Intake/Output: Intake & Output 04/29/22 04/30/22 05/01/22 05/02/22 23:59 23:59 23:59 23:59 Intake Total 3120 1430 1084 240 Output Total 1050 1350 1500 1200 Balance 2070 80 416 960 Meds/Results Medications: Active Medications Generic Name Dose Route Start Last Admin Trade Name Freq PRN Reason Stop Dose Admin Acetaminophen 650 mg 04/24/22 11:59 05/02/22 03:30 Acetaminophen 325 Mg Tablet PO 650 mg Q6H PRN Administration Mild Pain (1-3) or Fever Albuterol 2 puff 04/24/22 10:06 Albuterol Sulfate (*Sp) Aerosol 1 Puff INHALATION Q4-6H PRN S
[2022-05-02 11:06] LABS: Procalcitonin 0.1 ng/mL
[2022-05-02 11:20] LABS: Glucose Point of Care 224 mg/dl (65-105)
[2022-05-02] MEDS: INSULIN ASPART (*BKC) 100 UNITS/ML SUB-Q (12:19)
[2022-05-02 14:00] VITALS: BMI 22.3
--- NOTE | 2022-05-02 16:23 | PM.DS ---
DS: Admitting Diagnosis Discharge Date May 02, 2022 Admitting Diagnosis Altered mental status DS: Discharge Diagnosis Discharge Diagnosis (1) DKA (diabetic ketoacidosis): Qualifiers: Diabetes mellitus complication detail: with coma Diabetes mellitus type: other specified (including RAFY) Qualified Code(s): E13.11 - Other specified diabetes mellitus with ketoacidosis with coma Code(s): E11.10 - Type 2 diabetes mellitus with ketoacidosis without coma Status: Acute Assessment and Plan: Resolved, increased lantus to 25 units yesterday, FBG was 161, will increase lantus to 30 units and monitor, may need to add mealtime coverage, will consult [employer] bi consultant (2) Acute renal failure: Qualifiers: Acute renal failure type: unspecified Qualified Code(s): N17.9 - Acute kidney failure, unspecified Code(s): N17.9 - Acute kidney failure, unspecified Status: Acute Assessment and Plan: resolved (3) HTN (hypertension): Qualifiers: Hypertension type: essential hypertension Qualified Code(s): I10 - Essential (primary) hypertension Code(s): I10 - Essential (primary) hypertension Status: Acute Assessment and Plan: Monitor blood pressure (4) Diabetes mellitus: Qualifiers: Diabetes mellitus type: type 2 Diabetes mellitus long-term insulin use: without long wall shear operator use Diabetes mellitus complication status: without complication Qualified Code(s): E11.9 - Type 2 diabetes mellitus without complications Code(s): E11.9 - Type 2 diabetes mellitus without complications Status: Acute Assessment and Plan: accuchecks, SSI, lantus 30 u (5) Leukocytosis (leucocytosis): Qualifiers: Leukocytosis type: unspecified Qualified Code(s): D72.829 - Elevated white blood cell count, unspecified Code(s): D72.829 - Elevated white blood cell count, unspecified Status: Acute Assessment and Plan: leukocytosis resolved today, no signs of infection (6) Encephalopathy: Code(s): G93.40 - Encephalopathy, unspecified Status: Acute Assessment and Plan: stable, unsure of etiology??? (7) Silent aspiration: Code(s): T17.900A - Unspecified foreign body in respiratory tract, part unspecified causing asphyxiation, initial encounter Status: Acute Assessment and Plan: MBS showed some impairment, level 2 and 4 diets started today per recs from , continue to monitor nutrition status (8) Hyponatremia: Code(s): E87.1 - Hypo-osmolality and hyponatremia Status: Acute DS: Summary Hospital Course Reason for hospitalization: Altered mental status Hospital Course: 66-year-old male with past medical history significant for alcoholic pancreatitis, diabetes, GERD presented to ER with altered mental status. The patient was thus father who found him minimally responsive. When he was brought into the ER, he was noted to be obtunded and found to be in DKA. He was started on the DKA protocol in the ICU. He was started on fluid resuscitation as well as an insulin infusion. Electrolytes were monitored closely. He was noted to have acute kidney injury with hypokalemia. These improved with potassium repletion and IV fluids. In the ER, the patient was started on vancomycin and cefepime for suspicion of aspiration pneumonia. Blood and urine cultures were taken. He was also found to have severe hypernatremia and so fluid resuscitation was performed with half-normal saline. He was able to be weaned off the insulin drip and started on Lantus. Hypernatremia improved on D5W. Due to altered mental status, he received tube feedings via his NG tube. Assess mentation improved, he was given a swallow study and found to need a modified diet. S p.o. intake improved significantly. One of 2 blood cultures was positive in thought to be contamination. Antibiotics discontinued no signs of infect
--- NOTE | 2022-05-02 17:41 | PC.NURSE ---
reviewed in detail discharge med list and hypoglycemic signs and symptoms, encouraged pt to check his blood sugar as ordered and record numbers for PMD, father present for teaching
== END 2022-05-02 16:45 | disposition home health service (06) | DRG 637 ==
LOC: ANHED 03:50 → ANHICU 05:19 → ANH2MED 04-25 17:54
PROVIDERS: Chiropractor; Internal Medicine; Internal Medicine Nephrology; Admitting Provider Internal Medicine; Emergency Provider Emergency Medicine; PCP Emergency Medicine; Visit Provider Student in an Organized Health Care Education/Training Program
DX: E11.10 Type 2 diabetes mellitus with ketoacidosis without coma (principal); G93.41 Metabolic encephalopathy; N17.9 Acute kidney failure, unspecified; E87.1 Hypo-osmolality and hyponatremia; E87.0 Hyperosmolality and hypernatremia; D72.829 Elevated white blood cell count, unspecified; T17.900A Unspecified foreign body in respiratory tract, part unspecified causing asphyxiation, initial encounter; R13.10 Dysphagia, unspecified; E87.6 Hypokalemia; E86.0 Dehydration; E11.42 Type 2 diabetes mellitus with diabetic polyneuropathy; N40.0 Benign prostatic hyperplasia without lower urinary tract symptoms; K21.9 Gastro-esophageal reflux disease without esophagitis; J44.9 Chronic obstructive pulmonary disease, unspecified; M19.90 Unspecified osteoarthritis, unspecified site; E78.5 Hyperlipidemia, unspecified; I10 Essential (primary) hypertension; Z87.891 Personal history of nicotine dependence; Z91.14 Patient's other noncompliance with medication regimen
CPT/HCPCS: 36415; 36600; 51701; 70450; 71045; 71046; 74018; 80048; 80053; 80307; 81001; 82010; 82140; 82550; 82805; 82948; 83036; 83605; 83690; 83735; 84100; 84145; 85025; 85027; 85610; 85730; 86140; 87040; 87077; 87086; 87186; 92526; 92610; 92611; 93005; 94640; 96361; 96374; 96375; 97110; 97161; 97165; 97530; 97535; 99285; A9270; J0131; J0360; J0692; J1630; J1644; J1815; J2060; J2405; J3370; J3480; J7030; J7040; J7050

== ENCOUNTER 2022-05-21 13:00 | Inpatient (IN) | payer MEDICARE, MEDICAID, SELFPAY ==
[2022-05-21] VITALS (7 sets, daily range): BP systolic 127–137; BP diastolic 68–86; PULSE 53–85; RESP 11–18; TEMP 36.7; O2SAT 95–98
--- NOTE | ~2022-05-21 | XR_ITS ---
EXAMINATION: XR chest 1V Exam Date/Time: 05/21/2022 14:10 CDT HISTORY: AMS Comparison: 05/02/2020. RESULT: Lines, tubes, and devices: None. Lungs and pleura: Streaky linear bibasilar opacities, greater on the left. Right angle blunting. Cardiomediastinal silhouette: Stable cardiomediastinal silhouette. Other: No acute osseous or upper abdominal finding. IMPRESSION: Bibasilar scar/atelectasis. Infection not excluded. Possible small right pleural effusion.. Reviewed, dictated and finalized at location K. IMPRESSION: Bibasilar scar/atelectasis. Infection not excluded. Possible small right pleura l effusion..
--- NOTE | ~2022-05-21 | CT_ITS ---
EXAMINATION: CT brain wo con INDICATION: Altered mental status COMPARISON: 04/22/2022 TECHNIQUE: Standard unenhanced head CT. The dose-length product (DLP) was 605.33 mGy-cm. The mA was a djusted according to patient size. Iterative reconstruction technique was employed. FINDINGS: There is no acute intraparenchymal hemorrhage. No evidence of mass lesion. No evidence of a cute infarction. 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 There is mild periventric ular and subcortical hypodensity probably related to small vessel ischemic disease. There is mild pro minence of the sulci and ventricles related to cerebral atrophy. Intracranial calcified cerebral athe rosclerosis is noted. There are no extra-axial collections. There is no mass effect or midline shift. Surgical changes are noted in the left inferior orbital wall. There is mild mucosal thickening of th e paranasal sinuses. IMPRESSION: 1. No acute intracranial abnormality. 2. Age related findings. Reviewed, dictated and finalized at location A.
--- NOTE | 2022-05-21 13:07 | ECG_ITS ---
Measurements Intervals [place] Rate: 52 P: 43 SD: 182 QRS: 7 QRSD: 98 T: 34 QT: 445 QTc: 414 Interpretive Statements SINUS BRADYCARDIA COMPARED TO ECG 04/22/2022 01:42:43 SINUS BRADYCARDIA NOW PRESENT T-WAVES ARE SOMEWHAT PEAKED, CONSIDER HYPERKALEMIA. Electronically Signed On 05-21-2022 22:47:21 CDT by Sanjuanita Palomares M.D.
[2022-05-21 13:08] LABS: Glucose Point of Care 324 mg/dl (65-105)
--- NOTE | 2022-05-21 13:30 | ED.AMS ---
HPI - Altered Mental Status General Chief Complaint: Altered Mental Status Stated Complaint: lethargic, poss OD Time Seen by Provider: 05/21/22 13:30 History of Present Illness HPI narrative: Pt is a 66-year-old male with a history of diabetes, polysubstance abuse, sent to ER for evaluation of somnolence after found by father this morning sitting in his chair, unresponsive. Pt father states he was in his chair wearing a t shirt and didn't respond for several minutes. Pt father then called EMS to bring the patient to the hospital. Chart reviewed, patient with recent admission for DKA and was ultimately advised to be discharged to rehab facility. At time of arrival, patient is pale, dehydrated appearing. He is somnolent but arousable. He is protecting his airway. He can state his name, place. No focal deficits on exam. History is limited secondary to altered mentation. Related Data Home Medications Medication Instructions Recorded Confirmed blood sugar diagnostic (Clipyoouch 10/29/21 04/22/22 Ultra Test strips) blood-glucose meter ([employer] Corporation[employer] 10/29/21 04/22/22 Ultra2 Meter) lancets 30 gauge ([employer] Delica 10/29/21 04/22/22 Lancets) albuterol sulfate 90 mcg/actuation 2 puff inhalation Q4-6H PRN 04/22/22 04/22/22 aerosol inhaler (ProAir HFA) Shortness Of Breath quetiapine 50 mg tablet 50 tablet PO HS 04/22/22 04/22/22 Allergies Allergy/AdvReac Type Severity Reaction Status Date / Time No Known Allergies Allergy Unknown Verified 01/27/22 17:08 Review of Systems Review of Systems: ROS unobtainable: Yes unobtainable due to mental status [facility] Past Medical History Medical History Alcoholic pancreatitis 3 episodes between 2002 in 2003. Arthritis BPH without urinary obstruction Chronic headaches COPD (chronic obstructive pulmonary disease) Diabetes mellitus Gastric ulcer High cholesterol HTN (hypertension) Surgical History Surgical History History of colonoscopy with polypectomy (06/2009) History of esophagogastroduodenoscopy (EGD) (06/2009) History of tonsillectomy Family History Family History Mother Patient's mother is in good health Father Patient's father is in good health Social History Social History Social History: The patient lives in his father's basement. Smoking packs per day: 1 Smoking cigarettes per day: 20.0 Years smoked: 30 Smoking pack-years: 30.00 Smoking status: Former smoker Smoking end date: 11/23/13 Alcohol intake: former Alcohol use details: Patient has a history of alcohol abuse and prior alcoholic pancreatitis. Substance use: current Substance use type: marijuana Gender identity (if verbalized by the patient): Male Spiritual care concerns: No Exam Narrative: GENERAL: Somnolent but arousable HEAD: Normocephalic, atraumatic. EYES: PERRLA and EOMI. ENT: Nares clear, no rhinorrhea or epistaxis. Mucous membranes dry NECK: Supple. CHEST: No respiratory distress, breathing even and non labored HEART: Bradycardic rate, sinus rhythm ABDOMEN:Non distended, non tender EXTREMITIES: Normal range of motion. No edema. SKIN: Pale, dry, no rash. NEURO:Somnolent, not a reliable historian. No focal deficits on exam. Alert and oriented x2 Course Vital Signs Vital signs: Vital Signs Temperature 36.7 C 05/21/22 12:59 Pulse Rate 54 L 05/21/22 12:59 Respiratory Rate 18 05/21/22 12:59 Blood Pressure 136/68 05/21/22 12:59 Pulse Oximetry 96 05/21/22 12:59 Oxygen Delivery Room Air 05/21/22 12:59 Temperature 36.7 C 05/21/22 12:59 Pulse Rate 62 05/21/22 18:40 Respiratory Rate 11 L 05/21/22 18:40 Blood Pressure 136/78 05/21/22 18:40 Pulse Oximetry 96 05/21/22 18:40 Oxygen Delivery Room Air 05/21/22 12:
[2022-05-21 13:41] LABS: Basophils Absolute Auto 0.1 K/mm3 (0.0-0.1); Basophils Percent Auto 0.8 % (0.2-1.2); Eosinophils Percent Auto 0.3 % (0-4.4); Hematocrit 29.8 % (42.0-52.0); Hemoglobin 9.4 g/dL (14.0-18.0); Immature Granulocyte Absolute 0.08 K/mm3 (0.00-0.031); Immature Granulocyte Percent A 0.9 % (0-0.5); Lymphocytes Absolute Auto 1.21 K/mm3 (0.9-3.2); Mean Corpuscular HGB Conc 31.5 g/dl (32-36); Mean Corpuscular Hemoglobin 26.2 pg (26-34); Mean Platelet Volume 9.1 fl (7.4-10.4); Monocytes Absolute Auto 0.6 K/mm3 (0.1-0.6); Monocytes Percent Auto 6.5 % (2.6-8.5); Neutrophils Absolute Auto 6.7 K/mm3 (1.3-6.7); Neutrophils Percent Auto 77.5 % (45.5-73.1); Platelet Count Result 346 k/mm3 (150-375); Red Blood Count 3.59 M/mm3 (4.6-6.20); Red Cell Distribution Width 15.5 % (11.5-14.5); White Blood Count 8.7 K/mm3 (4.5-10.0)
[2022-05-21 13:46] LABS: Appearance Urine Clear (Clear); Bilirubin Urine Negative (Negative); Blood Urine Negative (Negative); Color Urine Yellow (Yellow); Glucose Urine UA 3+ mg/dL (Negative); Ketones Urine Negative (Negative); Leukocyte Esterase Ur Negative LEU/UL (Negative); Nitrate Urine Negative (Negative); Protein Urine Negative (Negative); Urobilinogen Urine 0.2 mg/dL (<2.0)
[2022-05-21] MEDS: SODIUM CHLORIDE 0.9% IV 1,000 ML 999 ML IV CONT (13:49)
[2022-05-21 13:50] LABS: Alveolar/Arterial O2 Gradient 30.7 mmHg; Base Excess ABG -1.1 mEq/l (+/-2.0); Carboxyhemoglobin 1.2 % THb (0-2.0); Fractional Inspired Oxygen 21 %; HCO3 ABG 23.9 mEq/l (22.0-26.0); Oxygen Content ABG 13.4 %vol (16.0-22.0); Oxygen Saturation ABG 93.8 % (95.0-100.0); Oxyhemoglobin 91.9 % THb (90.0-100.0); PCO2 ABG 41.2 mmHg (35.0-45.0); PO2 ABG 69.7 mmHg (80.0-100.0); PO2 FiO2 Ratio Arterial Blood 3.32 %; Reduced Hemoglobin 6.9 %THb (0-5.0); Total Hemoglobin 10.3 g/dL (12.0-18.0); pH ABG 7.382 (7.350-7.450)
[2022-05-21 13:51] LABS: Alanine Aminotransferase 46 U/L (6-50); Albumin Level 3.7 g/dL (3.5-5.1); Alkaline Phosphatase 105 U/L (38-126); Anion Gap 7 mmol/L (8-16); Aspartate Amino Transferase 26 U/L (17-59); Bilirubin,Total 0.4 mg/dL (0.2-1.3); Blood Urea Nitrogen 15 mg/dL (9-20); Calcium 9.1 mg/dL (8.4-10.2); Carbon Dioxide 23 mmol/L (22-30); Chloride 97 mmol/L (98-107); Estimated CRCL calculation 87 ml/min; Estimated Glomerular Filt Rate > 60; Glucose 310 mg/dL (65-110); Potassium 4.6 mmol/L (3.4-5.0); Sodium 127 mmol/L (137-145)
[2022-05-21 13:52] LABS: Device ROOM AIR; Modified Allen's Test Pass; Site Drawn RIGHT RADIAL
[2022-05-21 13:52] LABS: Prothrombin Time 12.8 Seconds (11.1-14.7)
[2022-05-21 13:53] LABS: Partial Thromboplastin Time 25.1 SECONDS (22.3-36.8)
[2022-05-21 13:56] LABS: RBC Urine 0-2 /hpf (0-2); Squamous Epithelial Cell Urine Rare /hpf (Few); WBC Urine 0-3 /hpf
[2022-05-21 13:57] LABS: Add Urine Microscopic? YES
[2022-05-21 14:18] LABS: Acetaminophen < 10 ug/mL (10-30); Ammonia < 9 umol/L (9-30); Ethanol < 10 mg/dL (<10); Salicylate < 1.0 mg/dL (2-20)
[2022-05-21 14:20] LABS: Creatine Kinase 499 U/L (55-170); Magnesium 1.8 mg/dL (1.6-2.3); Phosphorus 4.3 mg/dL (2.5-4.5)
[2022-05-21 14:25] LABS: Beta-Hydroxybutyrate/Acetoacetate 0.23 mmol/L (0.02-0.27)
[2022-05-21 14:32] LABS: Troponin I < 0.012 ng/mL (0.000-0.034)
[2022-05-21 14:43] LABS: Amphetamine Screen Urine Negative (Negative); Barbiturate Screen Urine Negative (Negative); Benzodiazepines Screen Urine Positive (Negative); Cannabinoid Screen Urine Positive (Negative); Cocaine Screen Urine Negative (Negative); Methadone Screen Urine Negative (Negative); Opiate Screen Urine Negative (Negative); Phencyclidine Screen Urine Negative (Negative)
[2022-05-21 14:50] LABS: Thyroid Stimulating Hormone 0.275 uIU/mL (0.465-4.680)
--- NOTE | 2022-05-21 17:30 | PC.NURSE ---
Pt attempting to get out of bed. Bed alarm alerting staff. Pt able to ambulate back into bed
--- NOTE | 2022-05-21 18:42 | PC.NURSE ---
Pt incontinent of urine in bed
--- NOTE | 2022-05-21 18:47 | PC.NURSE ---
Pt trying to get out of bed. Able to redirect back into bed.
--- NOTE | 2022-05-21 18:57 | PC.NURSE ---
Pt attempting to get out of bed at this time, staff redireccting pt back in staff
--- NOTE | 2022-05-21 19:00 | PM.IMHP ---
H&P: HPI History of Present Illness Date/Time: 05/21/22 19:00 Chief Complaint: Altered mental status. Narrative: This is a 66-year-old male with history of alcohol abuse, diabetes, hypertension, hyperlipidemia, and benign prostatic hyperplasia who presented to the emergency department via EMS from his father's house for evaluation of altered mental status. He is alert and oriented x2 though unfortunately he is not able to provide much in the way of a reliable history and as such some of the following is obtained via a review of his electronic medical records as well as discussions with his father, with the patient's permission. He was recently admitted to the hospital with encephalopathy, diabetic ketoacidosis, and acute renal failure. His mentation did improve significantly with treatment however physically he was weak and PT recommended rehab however the patient declined. Since discharge she has been staying at his father's house and father reports that he rarely comes out of the basement and spends a majority of his time on his computer. Today the patient was found by his father sitting in a chair, unresponsive. On arrival to the emergency department he was able to give his name and date of only. Brain CT showed no acute findings and labs were reviewed and they do not show any significant findings to explain his altered mental status. Urine drug screen was positive for benzodiazepines and cannabinoids and it does look like he takes alprazolam at home. He denies taking extra medications than what is prescribed however that has not yet been able to be confirmed. Currently he has no complaints but he is somnolent. Review of Systems Review of Systems: Twelve systems were reviewed but are limited as he does not answer all questions and the accuracy of his answers is uncertain. He denies pain, specifically denying headache, chest pain, and abdominal pain. He denies recent cold and flu symptoms. No cough or shortness of breath. He denies nausea, vomiting, and diarrhea. It does not sound as though he has been checking her glucose. He reports eating and drinking okay but he looks very dry on exam. [facility] Past Medical History Medical History (Updated 05/21/22 @ 22:48 by Kerri Conley PA-C) Alcoholic pancreatitis 3 episodes between 2002 in 2003. Arthritis BPH without urinary obstruction Chronic headaches Chronic obstructive pulmonary disease Diabetes mellitus Gastric ulcer High cholesterol Hypertension Surgical History Surgical History History of colonoscopy with polypectomy (06/2009) History of esophagogastroduodenoscopy (EGD) (06/2009) History of tonsillectomy Family History Family History Mother Patient's mother is in good health Father Patient's father is in good health Social History Social History (Updated 05/21/22 @ 22:43 by Kerri Conley PA-C) Social History: Surrogate decision maker: Bartolo Maria, father. Code status: Full code. Smoking packs per day: 1 Smoking cigarettes per day: 20.0 Years smoked: 30 Smoking pack-years: 30.00 Smoking status: Former smoker Smoking end date: 11/23/13 Alcohol intake: former Alcohol use details: Patient has a history of alcohol abuse and prior alcoholic pancreatitis. Substance use: current Substance use type: marijuana Additional living arrangements comments: The patient is currently living in his father's basement. Occupation/Education: unemployed Spiritual care concerns: No Meds Home Medications and Allergies Home Medications Medication Instructions Recorded Confirmed Type blood sugar diagnostic (OneTouch 10/29/21 05/21/22 History Ultra Test strips) blood-glucose meter (OneTouch 10/29/21 05/21/22 History Ultra2 Meter) gabapentin 300 mg capsule See Rx Instructions .Route 10/29/21 05/21/22 Rx .COMPLEX #810 caps
--- NOTE | 2022-05-21 19:13 | PC.NURSE ---
Assuming care of pt.
[2022-05-21 21:02] LABS: SARS-CoV-2 RNA PCR Negative
[2022-05-21] MEDS: diphenhydrAMINE HCl INJ 50 MG/ML VIAL 25 MG IV PUSH (21:13)
[2022-05-21] MEDS: HALOPERIDOL LACTATE 5 MG/ML VIAL IV PUSH (21:13)
[2022-05-21 22:26] LABS: Folic Acid 14.6 ng/mL (2.76->20)
[2022-05-21 22:29] LABS: Glucose Point of Care 291 mg/dl (65-105)
[2022-05-21 23:21] LABS: Hematocrit 29.8 % (42.0-52.0); Hemoglobin 9.4 g/dL (14.0-18.0)
[2022-05-21 23:37] LABS: Hemoglobin A1C 9.3 % (<5.7)
[2022-05-21 23:49] LABS: Iron 17 ug/dL (49-181)
[2022-05-22] VITALS (13 sets, daily range): BP systolic 109–138; BP diastolic 68–79; PULSE 60–96; RESP 18; TEMP 35.9–36.3; O2SAT 96–100
[2022-05-22] LABS: Percent Iron Saturation 5 % (20-50)
[2022-05-22 00:07] LABS: Free T4 Free Thyroxine 1.27 ng/mL (0.78-2.19)
[2022-05-22] MEDS: METOPROLOL TARTRATE 12.5 MG TABLET PO ×3 (00:25→20:21)
[2022-05-22] MEDS: INSULIN GLARGINE (*BKC) 100 UNITS/ML 30 UNITS SUB-Q ×2 (00:25→20:24)
[2022-05-22] MEDS: GABAPENTIN 300 MG CAPSULE 900 MG BY MOUTH ×4 (00:25→16:40)
[2022-05-22] MEDS: SODIUM CHLORIDE 0.9% IV 1,000 ML 80 ML IV CONT ×2 (00:25→16:40)
--- NOTE | 2022-05-22 01:57 | ADMGEN ---
This patient, [place], was admitted to [facility] Surg Room 306-02. Patient/family oriented to hospital policies and general routines including ID bracelet, bed and alarms, visiting hours, pain management, procedures, bathroom and other care routines, personal items, smoking policy, room service/diet, and visiting hours. Information on how to activate the Rapid Response Team has been discussed. Patient/Family are encouraged to report perceived risks to care and to ask questions if they do not understand what they are told or what they should do.
--- NOTE | 2022-05-22 03:11 | PC.NURSE ---
Pt refusing tele at this time, keeps jumping up out of bed, sitter is at bedside. Will attempt to apply tele once pt is able to redirected better.
[2022-05-22] MEDS: glipiZIDE 5 MG TABLET 10 MG PO ×2 (06:24→16:40)
[2022-05-22 07:11] LABS: Hematocrit 33.3 % (42.0-52.0); Hemoglobin 9.4 g/dL (14.0-18.0); Mean Corpuscular HGB Conc 28.2 g/dl (32-36); Mean Corpuscular Hemoglobin 26.4 pg (26-34); Mean Corpuscular Volume 93.5 fl (80-100); Mean Platelet Volume 9.5 fl (7.4-10.4); Platelet Count Result 340 k/mm3 (150-375); Red Blood Count 3.56 M/mm3 (4.6-6.20); Red Cell Distribution Width 15.6 % (11.5-14.5); White Blood Count 5.7 K/mm3 (4.5-10.0)
[2022-05-22 07:21] LABS: Alanine Aminotransferase 46 U/L (6-50); Albumin Level 3.4 g/dL (3.5-5.1); Alkaline Phosphatase 70 U/L (38-126); Anion Gap 6 mmol/L (8-16); Aspartate Amino Transferase 42 U/L (17-59); Bilirubin,Total 0.4 mg/dL (0.2-1.3); Blood Urea Nitrogen 9 mg/dL (9-20); Calcium 8.5 mg/dL (8.4-10.2); Carbon Dioxide 24 mmol/L (22-30); Chloride 105 mmol/L (98-107); Creatine Kinase 960 U/L (55-170); Estimated CRCL calculation 107 ml/min; Estimated Glomerular Filt Rate > 60; Glucose 112 mg/dL (65-110); Magnesium 1.9 mg/dL (1.6-2.3); Potassium 4.1 mmol/L (3.4-5.0); Sodium 135 mmol/L (137-145)
[2022-05-22 08:01] LABS: Glucose Point of Care 153 mg/dl (65-105)
[2022-05-22] MEDS: FINASTERIDE 5 MG TABLET PO (08:21)
[2022-05-22] MEDS: PANTOPRAZOLE 40 MG TABLET PO (08:22)
[2022-05-22] MEDS: TAMSULOSIN HCL 0.4 MG CAPSULE PO (08:22)
[2022-05-22] MEDS: FERROUS SULFATE 324 MG TABLET PO ×2 (08:48→16:40)
--- NOTE | 2022-05-22 10:00 | P.PNIM_ITS ---
Progress Note: A&P Assessment and Plan (1) Acute metabolic encephalopathy: Code(s): G93.41 - Metabolic encephalopathy Status: Acute Assessment and Plan: * Etiology is not entirely clear. * He knows his name, and birthdate. He can even tell me the day, however, he cannot tell me where he is at * Could be secondary to psych/rhabdo * Drug screen is positive for benzodiazepines (he has a prescription for alprazo ramirez) and cannabinoids. * Consider possible accidental overdose though he denies taking more than what he is prescribed. * Brain CT was unremarkable. * neurologic checks. * Initiate fall precautions. . (2) Anemia: Code(s): D64.9 - Anemia, unspecified Status: Acute Assessment and Plan: * Hemoglobin and hematocrit 9.4/33.3 * Stool was guaiac negative in the ER * Check iron studies 17, TIBC 313, % sat 5, Ferritin 20.60, B12 754 and folates 14.6, and monitor. * Ferrous sulfate 325mg PO BID * Trend H/H (3) Hyponatremia: Code(s): E87.1 - Hypo-osmolality and hyponatremia Status: Acute Assessment and Plan: * Sodium was 130 when corrected for glucose. * IV fluids on board (4) Diabetes mellitus: Qualifiers: Diabetes mellitus complication status: without complication Diabetes mellitus intermediate project manager insulin use: without alf use Diabetes mellitus type: type 2 Qualified Code(s): E11.9 - Type 2 diabetes mellitus without complications Code(s): E11.9 - Type 2 diabetes mellitus without complications Status: Acute Assessment and Plan: * Random glucose today is 112 * Continue basal insulin. * Initiate sliding scale insulin * Accu-Cheks * hypoglycemic protocol. * Trend glucose * adjust therapy as indicated (5) Dehydration: Code(s): E86.0 - Dehydration Status: Acute Assessment and Plan: * Continue judicious IV fluid rehydration overnight. (6) Elevated CK: Code(s): R74.8 - Abnormal levels of other serum enzymes Status: Acute Assessment and Plan: * CK is mildly elevated at 960 * Seems to always be elevated * Simvastatin has been placed on hold * continue to trend CK. * Physical therapy had previously recommended rehab * perhaps the statin may be the cause of some of his weakness. (7) Benign prostatic hyperplasia: Code(s): N40.0 - Benign prostatic hyperplasia without lower urinary tract symptoms Status: Acute Assessment and Plan: * Straight catheterization in the ER yielded 600 cc of urine. * Continue tamsulosin and finasteride. P.r.n. * bladder scan to ensure he is not retaining urine consistently. Time Spent With Patient Time with patient: Greater than 35 minutes Subjective Date/time seen: 05/22/22 1000 Interval history: 05/22/22999 patient was up in being very active. Patient stated he would get very much sleep as he is up and down all night. Patient did say that he had a little bit nauseated however he has no chest pain. He did state that he has a cough which is productive sometimes which when it is productive it is producing green phlegm. Patient stated that he is short of breath sometimes however he does not know when he gets short of breath. patient does not know why he is here or where he is at. He thinks he was in [place]. Complete review of systems unreliable due to patient's mental status however he seemed very comfortable at this time. 05/21/22? 19:00 This is a
--- NOTE | 2022-05-22 10:00 | PM.IMPN ---
Progress Note: A&P Assessment and Plan (1) Acute metabolic encephalopathy: Code(s): G93.41 - Metabolic encephalopathy Status: Acute Assessment and Plan: Etiology is not entirely clear. He knows his name, and birthdate. He can even tell me the day, however, he cannot tell me where he is at Could be secondary to psych/rhabdo Drug screen is positive for benzodiazepines (he has a prescription for alprazolam) and cannabinoids. Consider possible accidental overdose though he denies taking more than what he is prescribed. Brain CT was unremarkable. neurologic checks. Initiate fall precautions. . (2) Anemia: Code(s): D64.9 - Anemia, unspecified Status: Acute Assessment and Plan: Hemoglobin and hematocrit 9.4/33.3 Stool was guaiac negative in the ER Check iron studies 17, TIBC 313, % sat 5, Ferritin 20.60, B12 754 and folates 14.6, and monitor. Ferrous sulfate 325mg PO BID Trend H/H (3) Hyponatremia: Code(s): E87.1 - Hypo-osmolality and hyponatremia Status: Acute Assessment and Plan: Sodium was 130 when corrected for glucose. IV fluids on board (4) Diabetes mellitus: Qualifiers: Diabetes mellitus complication status: without complication Diabetes mellitus terminal supervisor insulin use: without terminal supervisor use Diabetes mellitus type: type 2 Qualified Code(s): E11.9 - Type 2 diabetes mellitus without complications Code(s): E11.9 - Type 2 diabetes mellitus without complications Status: Acute Assessment and Plan: Random glucose today is 112 Continue basal insulin. Initiate sliding scale insulin Accu-Cheks hypoglycemic protocol. Trend glucose adjust therapy as indicated (5) Dehydration: Code(s): E86.0 - Dehydration Status: Acute Assessment and Plan: Continue judicious IV fluid rehydration overnight. (6) Elevated CK: Code(s): R74.8 - Abnormal levels of other serum enzymes Status: Acute Assessment and Plan: CK is mildly elevated at 960 Seems to always be elevated Simvastatin has been placed on hold continue to trend CK. Physical therapy had previously recommended rehab perhaps the statin may be the cause of some of his weakness. (7) Benign prostatic hyperplasia: Code(s): N40.0 - Benign prostatic hyperplasia without lower urinary tract symptoms Status: Acute Assessment and Plan: Straight catheterization in the ER yielded 600 cc of urine. Continue tamsulosin and finasteride. P.r.n. bladder scan to ensure he is not retaining urine consistently. Time Spent With Patient Time with patient: Greater than 35 minutes Subjective Date/time seen: 05/22/22 1000 Interval history: 05/22/22999 patient was up in being very active. Patient stated he would get very much sleep as he is up and down all night. Patient did say that he had a little bit nauseated however he has no chest pain. He did state that he has a cough which is productive sometimes which when it is productive it is producing green phlegm. Patient stated that he is short of breath sometimes however he does not know when he gets short of breath. patient does not know why he is here or where he is at. He thinks he was in [place]. Complete review of systems unreliable due to patient's mental status however he seemed very comfortable at this time. 05/21/22? 19:00 This is a 66-year-old male with history of alcohol abuse, diabetes, hypertension, hyperlipidemia, and benign prostatic hyperplasia who presented to the emergency department via EMS from his father's house for evaluation of altered mental status. He is alert and oriented x2 though unfortunately he is not able to provide much in the way of a reliable history and as such some of the following is obtained via a review of his electronic medical records as well as discussions with his father, with the patient'
[2022-05-22 11:58] LABS: Glucose Point of Care 183 mg/dl (65-105)
[2022-05-22 16:45] LABS: Glucose Point of Care 140 mg/dl (65-105)
[2022-05-22 20:55] LABS: Glucose Point of Care 176 mg/dl (65-105)
[2022-05-22] MEDS: LORazepam INJ (*CRX) 2 MG/ML VIAL 1 MG IV PUSH (23:34)
[2022-05-23] VITALS (10 sets, daily range): BP systolic 108–149; BP diastolic 50–88; PULSE 67–84; RESP 16–20; TEMP 36.4–36.9; O2SAT 97–100
[2022-05-23] MEDS: SODIUM CHLORIDE 0.9% IV 1,000 ML 80 ML IV CONT ×2 (05:07→18:40)
[2022-05-23 08:38] LABS: Glucose Point of Care 74 mg/dl (65-105)
[2022-05-23 08:41] LABS: Basophils Absolute Auto 0.1 K/mm3 (0.0-0.1); Basophils Percent Auto 1.8 % (0.2-1.2); Eosinophils Absolute Auto 0.1 K/mm3 (0-0.3); Eosinophils Percent Auto 2.1 % (0-4.4); Hematocrit 31.5 % (42.0-52.0); Hemoglobin 9.7 g/dL (14.0-18.0); Immature Granulocyte Absolute 0.04 K/mm3 (0.00-0.031); Immature Granulocyte Percent A 0.7 % (0-0.5); Lymphocytes Absolute Auto 2.32 K/mm3 (0.9-3.2); Lymphocytes Percent Auto 41.5 % (18.3-44.2); Mean Corpuscular HGB Conc 30.8 g/dl (32-36); Mean Corpuscular Hemoglobin 25.9 pg (26-34); Mean Platelet Volume 9.2 fl (7.4-10.4); Monocytes Absolute Auto 0.5 K/mm3 (0.1-0.6); Monocytes Percent Auto 9.7 % (2.6-8.5); Neutrophils Absolute Auto 2.5 K/mm3 (1.3-6.7); Neutrophils Percent Auto 44.2 % (45.5-73.1); Platelet Count Result 402 k/mm3 (150-375); Red Blood Count 3.75 M/mm3 (4.6-6.20); Red Cell Distribution Width 15.8 % (11.5-14.5); White Blood Count 5.6 K/mm3 (4.5-10.0)
[2022-05-23 08:55] LABS: Alanine Aminotransferase 38 U/L (6-50); Albumin Level 3.4 g/dL (3.5-5.1); Alkaline Phosphatase 74 U/L (38-126); Anion Gap 7 mmol/L (8-16); Aspartate Amino Transferase 27 U/L (17-59); Bilirubin,Total 0.1 mg/dL (0.2-1.3); Blood Urea Nitrogen 6 mg/dL (9-20); Calcium 8.4 mg/dL (8.4-10.2); Carbon Dioxide 22 mmol/L (22-30); Chloride 107 mmol/L (98-107); Creatine Kinase 642 U/L (55-170); Estimated CRCL calculation 108 ml/min; Estimated Glomerular Filt Rate > 60; Glucose 68 mg/dL (65-110); Magnesium 1.8 mg/dL (1.6-2.3); Potassium 3.6 mmol/L (3.4-5.0); Sodium 136 mmol/L (137-145)
--- NOTE | 2022-05-23 09:30 | PM.IMPN ---
Progress Note: A&P Assessment and Plan (1) Acute metabolic encephalopathy: Code(s): G93.41 - Metabolic encephalopathy Status: Acute Assessment and Plan: Etiology is not entirely clear. He knows his name, and birthdate. He can even tell me the day, however, he cannot tell me where he is at Could be secondary to psych/rhabdo Drug screen is positive for benzodiazepines (he has a prescription for alprazolam) and cannabinoids. Consider possible accidental overdose though he denies taking more than what he is prescribed. Brain CT was unremarkable. neurologic checks. Initiate fall precautions. . (2) Anemia: Code(s): D64.9 - Anemia, unspecified Status: Acute Assessment and Plan: Hemoglobin and hematocrit 9.7/31.5 Stool was guaiac negative in the ER Check iron studies 17, TIBC 313, % sat 5, Ferritin 20.60, B12 754 and folates 14.6, and monitor. Ferrous sulfate 325mg PO BID Trend H/H (3) Hyponatremia: Code(s): E87.1 - Hypo-osmolality and hyponatremia Status: Acute Assessment and Plan: Sodium was 136 IV fluids on board (4) Diabetes mellitus: Qualifiers: Diabetes mellitus complication status: without complication Diabetes mellitus skilled nursing insulin use: without ground products director use Diabetes mellitus type: type 2 Qualified Code(s): E11.9 - Type 2 diabetes mellitus without complications Code(s): E11.9 - Type 2 diabetes mellitus without complications Status: Acute Assessment and Plan: Random glucose today is 68 Continue basal insulin. Initiate sliding scale insulin Accu-Cheks hypoglycemic protocol. Trend glucose adjust therapy as indicated (5) Elevated CK: Code(s): R74.8 - Abnormal levels of other serum enzymes Status: Acute Assessment and Plan: CK remains mildly elevated at 642 Seems to always be elevated Simvastatin has been placed on hold continue to trend CK. Physical therapy had previously recommended rehab perhaps the statin may be the cause of some of his weakness. (6) Benign prostatic hyperplasia: Code(s): N40.0 - Benign prostatic hyperplasia without lower urinary tract symptoms Status: Acute Assessment and Plan: Straight catheterization in the ER yielded 600 cc of urine. Continue tamsulosin and finasteride. P.r.n. bladder scan to ensure he is not retaining urine consistently. Time Spent With Patient Time with patient: Greater than 35 minutes Subjective Date/time seen: 05/23/22929 Interval history: 05/23/22929 Patient is laying in bed. He is doing ok. He knows that today is Thursday, however, he does not know where he is. Today he told me that he was in a lab. Otherwise CK is still elevated. He is able to move around. He denies chest pain, shortness of breath, nausea, vomiting, diarrhea. 05/22/22 1000 patient was up in being very active. Patient stated he would get very much sleep as he is up and down all night. Patient did say that he had a little bit nauseated however he has no chest pain. He did state that he has a cough which is productive sometimes which when it is productive it is producing green phlegm. Patient stated that he is short of breath sometimes however he does not know when he gets short of breath. patient does not know why he is here or where he is at. He thinks he was in [place]. Complete review of systems unreliable due to patient's mental status however he seemed very comfortable at this time. 05/21/22? 19:00 This is a 66-year-old male with history of alcohol abuse, diabetes, hypertension, hyperlipidemia, and benign prostatic hyperplasia who presented to the emergency department via EMS from his father's house for evaluation of altered mental status. He is alert and oriented x2 though unfortunately he is not able to provide much in the way of a reliable history and as such some of the followin
--- NOTE | 2022-05-23 09:30 | P.PNIM_ITS ---
Progress Note: A&P Assessment and Plan (1) Acute metabolic encephalopathy: Code(s): G93.41 - Metabolic encephalopathy Status: Acute Assessment and Plan: * Etiology is not entirely clear. * He knows his name, and birthdate. He can even tell me the day, however, he cannot tell me where he is at * Could be secondary to psych/rhabdo * Drug screen is positive for benzodiazepines (he has a prescription for alprazo ramirez) and cannabinoids. * Consider possible accidental overdose though he denies taking more than what he is prescribed. * Brain CT was unremarkable. * neurologic checks. * Initiate fall precautions. . (2) Anemia: Code(s): D64.9 - Anemia, unspecified Status: Acute Assessment and Plan: * Hemoglobin and hematocrit 9.7/31.5 * Stool was guaiac negative in the ER * Check iron studies 17, TIBC 313, % sat 5, Ferritin 20.60, B12 754 and folates 14.6, and monitor. * Ferrous sulfate 325mg PO BID * Trend H/H (3) Hyponatremia: Code(s): E87.1 - Hypo-osmolality and hyponatremia Status: Acute Assessment and Plan: * Sodium was 136 * IV fluids on board (4) Diabetes mellitus: Qualifiers: Diabetes mellitus complication status: without complication Diabetes mellitus solid waste manager insulin use: without solid waste manager use Diabetes mellitus type: type 2 Qualified Code(s): E11.9 - Type 2 diabetes mellitus without complications Code(s): E11.9 - Type 2 diabetes mellitus without complications Status: Acute Assessment and Plan: * Random glucose today is 68 * Continue basal insulin. * Initiate sliding scale insulin * Accu-Cheks * hypoglycemic protocol. * Trend glucose * adjust therapy as indicated (5) Elevated CK: Code(s): R74.8 - Abnormal levels of other serum enzymes Status: Acute Assessment and Plan: * CK remains mildly elevated at 642 * Seems to always be elevated * Simvastatin has been placed on hold * continue to trend CK. * Physical therapy had previously recommended rehab * perhaps the statin may be the cause of some of his weakness. (6) Benign prostatic hyperplasia: Code(s): N40.0 - Benign prostatic hyperplasia without lower urinary tract symptoms Status: Acute Assessment and Plan: * Straight catheterization in the ER yielded 600 cc of urine. * Continue tamsulosin and finasteride. P.r.n. * bladder scan to ensure he is not retaining urine consistently. Time Spent With Patient Time with patient: Greater than 35 minutes Subjective Date/time seen: 05/23/22929 Interval history: 05/23/22929 Patient is laying in bed. He is doing ok. He knows that today is Thursday, however, he does not know where he is. Today he told me that he was in a lab. Otherwise CK is still elevated. He is able to move around. He denies chest pain, shortness of breath, nausea, vomiting, diarrhea. 05/22/22999 patient was up in being very active. Patient stated he would get very much sleep as he is up and down all night. Patient did say that he had a little bit nauseated however he has no chest pain. He did state that he has a cough which is productive sometimes which when it is productive it is producing green phlegm. Patient stated that he is short of breath sometimes however he does not know when he gets short of breath. patient does not know why he is here or where he is at. He thinks he was in [place]. Complete review of systems unreliable due to patient's m
[2022-05-23] MEDS: UMECLIDINIUM BROMIDE 62.5 MCG ELLIPTA 1 PUFF INHALATION (09:38)
[2022-05-23] MEDS: GABAPENTIN 300 MG CAPSULE 900 MG BY MOUTH ×3 (09:46→16:15)
[2022-05-23] MEDS: FERROUS SULFATE 324 MG TABLET PO ×2 (09:47→16:15)
[2022-05-23] MEDS: PANTOPRAZOLE 40 MG TABLET PO (09:47)
[2022-05-23] MEDS: glipiZIDE 5 MG TABLET 10 MG PO ×2 (09:47→16:14)
[2022-05-23] MEDS: TAMSULOSIN HCL 0.4 MG CAPSULE PO (09:47)
[2022-05-23] MEDS: METOPROLOL TARTRATE 12.5 MG TABLET PO ×2 (09:47→20:02)
[2022-05-23] MEDS: FINASTERIDE 5 MG TABLET PO (09:54)
[2022-05-23 12:04] LABS: Glucose Point of Care 190 mg/dl (65-105)
[2022-05-23] MEDS: ACETAMINOPHEN 325 MG TABLET 650 MG PO (16:12)
[2022-05-23 17:09] LABS: Glucose Point of Care 246 mg/dl (65-105)
[2022-05-23] MEDS: INSULIN ASPART (*BKC) 100 UNITS/ML SUB-Q (18:39)
[2022-05-23 19:58] LABS: Glucose Point of Care 213 mg/dl (65-105)
[2022-05-23] MEDS: INSULIN GLARGINE (*BKC) 100 UNITS/ML 30 UNITS SUB-Q (20:02)
[2022-05-24] VITALS (7 sets, daily range): BP systolic 136–159; BP diastolic 67–81; PULSE 62–78; RESP 16; TEMP 36.3–36.6; O2SAT 95–99
[2022-05-24] MEDS: SODIUM CHLORIDE 0.9% IV 1,000 ML 80 ML IV CONT ×2 (05:16→08:55)
[2022-05-24 06:01] LABS: Basophils Absolute Auto 0.1 K/mm3 (0.0-0.1); Basophils Percent Auto 2.7 % (0.2-1.2); Eosinophils Absolute Auto 0.2 K/mm3 (0-0.3); Eosinophils Percent Auto 3.5 % (0-4.4); Hematocrit 29.9 % (42.0-52.0); Hemoglobin 9.4 g/dL (14.0-18.0); Immature Granulocyte Absolute 0.03 K/mm3 (0.00-0.031); Immature Granulocyte Percent A 0.6 % (0-0.5); Lymphocytes Absolute Auto 1.97 K/mm3 (0.9-3.2); Lymphocytes Percent Auto 40.5 % (18.3-44.2); Mean Corpuscular HGB Conc 31.4 g/dl (32-36); Mean Corpuscular Hemoglobin 26.5 pg (26-34); Mean Corpuscular Volume 84.2 fl (80-100); Mean Platelet Volume 9.2 fl (7.4-10.4); Monocytes Absolute Auto 0.6 K/mm3 (0.1-0.6); Monocytes Percent Auto 11.7 % (2.6-8.5); Platelet Count Result 402 k/mm3 (150-375); Red Blood Count 3.55 M/mm3 (4.6-6.20); Red Cell Distribution Width 15.6 % (11.5-14.5); White Blood Count 4.9 K/mm3 (4.5-10.0)
[2022-05-24 06:20] LABS: Alanine Aminotransferase 29 U/L (6-50); Albumin Level 3.2 g/dL (3.5-5.1); Alkaline Phosphatase 72 U/L (38-126); Anion Gap 5 mmol/L (8-16); Aspartate Amino Transferase 21 U/L (17-59); Bilirubin,Total 0.1 mg/dL (0.2-1.3); Blood Urea Nitrogen 8 mg/dL (9-20); Calcium 8.3 mg/dL (8.4-10.2); Carbon Dioxide 22 mmol/L (22-30); Chloride 109 mmol/L (98-107); Estimated CRCL calculation 94 ml/min; Estimated Glomerular Filt Rate > 60; Glucose 72 mg/dL (65-110); Magnesium 1.9 mg/dL (1.6-2.3); Potassium 3.7 mmol/L (3.4-5.0); Sodium 136 mmol/L (137-145)
[2022-05-24 07:40] LABS: Glucose Point of Care 64 mg/dl (65-105)
[2022-05-24] MEDS: UMECLIDINIUM BROMIDE 62.5 MCG ELLIPTA 1 PUFF INHALATION (08:16)
[2022-05-24] MEDS: glipiZIDE 5 MG TABLET 10 MG PO (08:55)
[2022-05-24] MEDS: FERROUS SULFATE 324 MG TABLET PO (08:55)
[2022-05-24] MEDS: PANTOPRAZOLE 40 MG TABLET PO (08:56)
[2022-05-24] MEDS: GABAPENTIN 300 MG CAPSULE 900 MG BY MOUTH ×2 (08:56→12:16)
[2022-05-24] MEDS: FINASTERIDE 5 MG TABLET PO (08:56)
[2022-05-24] MEDS: METOPROLOL TARTRATE 12.5 MG TABLET PO (08:56)
[2022-05-24] MEDS: TAMSULOSIN HCL 0.4 MG CAPSULE PO (08:56)
--- NOTE | 2022-05-24 10:00 | PM.DS ---
DS: Admitting Diagnosis Discharge Date 06/13/22 1000 Admitting Diagnosis Rhabdomyolysis/Schizophrenia DS: Discharge Diagnosis Discharge Diagnosis (1) Acute metabolic encephalopathy: Code(s): G93.41 - Metabolic encephalopathy Status: Acute Assessment and Plan: Etiology is not entirely clear. He knows his name, and birthdate. He can even tell me the day, however, he cannot tell me where he is at Could be secondary to psych/rhabdo Drug screen is positive for benzodiazepines (he has a prescription for alprazolam) and cannabinoids. Consider possible accidental overdose though he denies taking more than what he is prescribed. Brain CT was unremarkable. neurologic checks. Initiate fall precautions. . (2) Anemia: Code(s): D64.9 - Anemia, unspecified Status: Acute Assessment and Plan: Hemoglobin and hematocrit 9.4/29.9 Stool was guaiac negative in the ER Check iron studies 17, TIBC 313, % sat 5, Ferritin 20.60, B12 754 and folates 14.6, and monitor. Ferrous sulfate 325mg PO BID Trend H/H (3) Hyponatremia: Code(s): E87.1 - Hypo-osmolality and hyponatremia Status: Acute Assessment and Plan: Sodium was 136 IV fluids on board (4) Diabetes mellitus: Qualifiers: Diabetes mellitus complication status: without complication Diabetes mellitus [facility] insulin use: without [facility] use Diabetes mellitus type: type 2 Qualified Code(s): E11.9 - Type 2 diabetes mellitus without complications Code(s): E11.9 - Type 2 diabetes mellitus without complications Status: Acute Assessment and Plan: Random glucose today is 68 Continue basal insulin. Initiate sliding scale insulin Accu-Cheks hypoglycemic protocol. Trend glucose adjust therapy as indicated (5) Elevated CK: Code(s): R74.8 - Abnormal levels of other serum enzymes Status: Acute Assessment and Plan: CK remains mildly elevated at 642 Seems to always be elevated Simvastatin has been placed on hold continue to trend CK. Physical therapy had previously recommended rehab perhaps the statin may be the cause of some of his weakness. (6) Benign prostatic hyperplasia: Code(s): N40.0 - Benign prostatic hyperplasia without lower urinary tract symptoms Status: Acute Assessment and Plan: Straight catheterization in the ER yielded 600 cc of urine. Continue tamsulosin and finasteride. P.r.n. bladder scan to ensure he is not retaining urine consistently. (7) Schizophrenia: Code(s): F20.9 - Schizophrenia, unspecified Status: Acute Assessment and Plan: Has a history of Schizophrenia Start on Abilify Will need to follow up outpatient DS: Summary Hospital Course Hospital Course: Patient is a 66-year-old male with a past medical history of pancreatitis, BPH, COPD, diabetes who presented to the ED from home with confusion. Head CT was negative for any acute intracranial abnormalities. Patient was not clear when he came in however he was getting better and was started on IV fluids due to an elevated CK level. Patient has been getting more and more oriented as the days go on however today talking with the patient he did state that he is schizophrenic and has been off his meds. He also states that he does do marijuana and he does take his medications as prescribed. Looking back in his medication history does look like the patient was prescribed Seroquel and Lexapro in February however nothing recent. Patient was also noted to be anemia and iron studies did indicate the patient was iron deficient. Iron was added to the patient's regimen. patient still is slightly not oriented as he can tell me his name and his date of he can not tell me where he is at today however when asked me the president was he thinks the [facility]. He also knows the year is 2020 or 2021 however
--- NOTE | 2022-05-24 10:00 | P.DS_ITS ---
DS: Admitting Diagnosis Discharge Date 06/13/22 1000 Admitting Diagnosis Rhabdomyolysis/Schizophrenia DS: Discharge Diagnosis Discharge Diagnosis (1) Acute metabolic encephalopathy: Code(s): G93.41 - Metabolic encephalopathy Status: Acute Assessment and Plan: * Etiology is not entirely clear. * He knows his name, and birthdate. He can even tell me the day, however, he cannot tell me where he is at * Could be secondary to psych/rhabdo * Drug screen is positive for benzodiazepines (he has a prescription for alprazolam) and cannabinoids. * Consider possible accidental overdose though he denies taking more than what he is prescribed. * Brain CT was unremarkable. * neurologic checks. * Initiate fall precautions. . (2) Anemia: Code(s): D64.9 - Anemia, unspecified Status: Acute Assessment and Plan: * Hemoglobin and hematocrit 9.4/29.9 * Stool was guaiac negative in the ER * Check iron studies 17, TIBC 313, % sat 5, Ferritin 20.60, B12 754 and folates 14.6, and monitor. * Ferrous sulfate 325mg PO BID * Trend H/H (3) Hyponatremia: Code(s): E87.1 - Hypo-osmolality and hyponatremia Status: Acute Assessment and Plan: * Sodium was 136 * IV fluids on board (4) Diabetes mellitus: Qualifiers: Diabetes mellitus complication status: without complication Diabetes [facility] insulin use: without skilled nursing use Diabetes mellitus type: type 2 Qualified Code(s): E11.9 - Type 2 diabetes mellitus without complications Code(s): E11.9 - Type 2 diabetes mellitus without complications Status: Acute Assessment and Plan: * Random glucose today is 68 * Continue basal insulin. * Initiate sliding scale insulin * Accu-Cheks * hypoglycemic protocol. * Trend glucose * adjust therapy as indicated (5) Elevated CK: Code(s): R74.8 - Abnormal levels of other serum enzymes Status: Acute Assessment and Plan: * CK remains mildly elevated at 642 * Seems to always be elevated * Simvastatin has been placed on hold * continue to trend CK. * Physical therapy had previously recommended rehab * perhaps the statin may be the cause of some of his weakness. (6) Benign prostatic hyperplasia: Code(s): N40.0 - Benign prostatic hyperplasia without lower urinary tract symptoms Status: Acute Assessment and Plan: * Straight catheterization in the ER yielded 600 cc of urine. * Continue tamsulosin and finasteride. P.r.n. * bladder scan to ensure he is not retaining urine consistently. (7) Schizophrenia: Code(s): F20.9 - Schizophrenia, unspecified Status: Acute Assessment and Plan: * Has a history of Schizophrenia * Start on Abilify * Will need to follow up outpatient DS: Summary Hospital Course Hospital Course: Patient is a 66-year-old male with a past medical history of pancreatitis, BPH, COPD, diabetes who presented to the ED from home with confusion. Head CT was negative for any acute intracranial abnormalities. Patient was not clear when he came in however he was getting better and was started on IV fluids due to an elevated CK level. Patient has been getting more and more oriented as the days go on however today talking with the patient he did state that he is schizophrenic and has been off his meds. He also states that he does do marijuana and he does take his medications as prescribed. Looking back in his
[2022-05-24 10:33] LABS: Glucose Point of Care 146 mg/dl (65-105)
[2022-05-24 11:32] LABS: Glucose Point of Care 134 mg/dl (65-105)
[2022-05-24] MEDS: ARIPiprazole 5 MG TABLET 15 MG PO (15:01)
== END 2022-05-24 16:10 | disposition home or self-care (01) | DRG 917 ==
LOC: ANHED 19:02 → ANH3MEDSUR 20:34
PROVIDERS: Physician Assistant; Admitting Provider Internal Medicine; Emergency Provider Emergency Medicine; PCP Emergency Medicine; Visit Provider Nurse Practitioner
DX: T50.901A Poisoning by unspecified drugs, medicaments and biological substances, accidental (unintentional), initial encounter (principal); G93.41 Metabolic encephalopathy; E87.1 Hypo-osmolality and hyponatremia; M62.82 Rhabdomyolysis; D64.9 Anemia, unspecified; E11.9 Type 2 diabetes mellitus without complications; E86.0 Dehydration; R74.8 Abnormal levels of other serum enzymes; N40.0 Benign prostatic hyperplasia without lower urinary tract symptoms; Z87.891 Personal history of nicotine dependence; J44.9 Chronic obstructive pulmonary disease, unspecified; E78.00 Pure hypercholesterolemia, unspecified; I10 Essential (primary) hypertension; F20.9 Schizophrenia, unspecified; Z79.899 Other long term (current) drug therapy; Z79.84 Long term (current) use of oral hypoglycemic drugs; Z79.4 Long term (current) use of insulin
CPT/HCPCS: 36415; 36600; 51701; 70450; 71045; 80053; 80307; 81001; 82010; 82140; 82375; 82550; 82607; 82728; 82746; 82805; 82948; 83036; 83050; 83540; 83550; 83735; 84100; 84439; 84443; 84484; 85014; 85018; 85025; 85027; 85610; 85730; 93005; 94640; 96361; 96374; 96375; 99285; A9270; C9803; G0378; J1200; J1630; J1815; J2060; J7030; U0003; U0005